=== PATIENT | female | born 1955 ===

== ENCOUNTER 2020-05-15 08:50 | Outpatient (REF) | payer MEDICAID, SELFPAY ==
[2020-05-15 10:17] LABS: MANUAL DIFF FLAG NO
[2020-05-15 10:34] LABS: Basophils Percent Auto 0.4 % (0-2); Eosinophils Absolute Auto 0.1 X10*3/uL (0.0-0.4); Eosinophils Percent Auto 1.6 % (0-4); Hematocrit 42.5 % (37-47); Hemoglobin 13.3 g/dl (12.0-16.0); Imm Gran Abs Auto 0.01 X10*3/uL (0.00-0.03); Imm Gran Pct Auto 0.1 % (0.0-0.4); Lymphocytes Percent Auto 39.8 % (20-40); Mean Corpuscular HGB Conc 31.3 g/dl (31.0-35.0); Mean Corpuscular Hemoglobin 25.7 pg (27.0-33.0); Mean Corpuscular Volume 82.2 fL (80-98); Mean Platelet Volume 10.2 fL (9.4-12.3); Monocytes Absolute Auto 0.4 X10*3/uL (0.1-1.2); Monocytes Percent Auto 5.2 % (2-11); Neutrophils Absolute Auto 3.9 X10*3/uL (2.0-8.3); Neutrophils Percent Auto 52.9 % (45-73); Platelet Count 263 X10*3/uL (160-400); Red Blood Count 5.17 X10*6/uL (4.20-5.50); Red Cell Distribution Width 14.3 % (11.0-16.0); White Blood Count 7.4 X10*3/uL (4.8-10.8)
[2020-05-15 10:47] LABS: Estimated Average Glucose 166 mg/dL; Hemoglobin A1c % 7.4 %
[2020-05-15 10:49] LABS: Alanine Aminotransferase 31 U/L (0-31); Albumin Level 4.1 g/dL (3.5-5.0); Alkaline Phosphatase 55 U/L (39-117); Anion Gap 9 (12-20); Aspartate Amino Transferase 22 U/L (5-31); Bilirubin Total 0.3 mg/dL (0.0-1.0); Blood Urea Nitrogen 14 mg/dL (9-16); Calcium 9.2 mg/dL (8.4-10.2); Carbon Dioxide 31 mmol/L (22-29); Chloride 103 mmol/L (96-108); Cholesterol 142 mg/dL; Estimated Glomerular Filt Rate > 60; Glucose Random 125 mg/dL (60-115); HDL Cholesterol 61 mg/dL; LDL Cholesterol Calculated 66 mg/dl; Potassium 4.4 mmol/l (3.3-5.1); Sodium 139 mmol/L (135-145); Total Protein 6.9 g/dL (6.5-8.0); Triglycerides 76 mg/dL
[2020-05-15 11:02] LABS: Creatinine Urine 102.91 mg/dL; Microalbum/Creatinine Ratio Ur 10.6 ug/mg cr
[2020-05-15 11:08] LABS: TSH reflex Free T4 1.35 mIU/mL (0.32-4.0)
== END 2020-05-15 08:51 | disposition home or self-care (01) ==
LOC: HO.LAB 08:50
PROVIDERS: PCP Family Medicine; Visit Provider Family Medicine
DX: E03.9 Hypothyroidism, unspecified (principal); E11.9 Type 2 diabetes mellitus without complications; I10 Essential (primary) hypertension
CPT/HCPCS: 36415; 80053; 80061; 82043; 83036; 84443; 85025

== ENCOUNTER 2020-05-27 13:35 | Outpatient (REF) | payer MEDICAID, SELFPAY | END 2020-05-27 13:36 | disposition home or self-care (01) | LOC: HO.LAB 13:35 | PROVIDERS: Visit Provider Internal Medicine | DX: Z20.828 Contact with and (suspected) exposure to other viral communicable diseases (principal) | CPT/HCPCS: 87635 ==

== ENCOUNTER 2021-04-15 12:43 | Outpatient (REF) | payer MEDICAID, SELFPAY | END 2021-04-15 12:44 | disposition home or self-care (01) | LOC: HO.LAB 12:43 | PROVIDERS: PCP Family Medicine; Visit Provider Internal Medicine | DX: Z20.822 Contact with and (suspected) exposure to COVID-19 (principal) | CPT/HCPCS: C9803; U0003; U0005 ==

== ENCOUNTER 2021-05-28 14:19 | Outpatient (REF) | payer MEDICAID, SELFPAY ==
--- NOTE | ~2021-05-28 | US_ITS ---
EXAMINATION: US EXTRACRANIAL CAROTID DUPLEX, BILATERAL CLINICAL INFORMATION: Dizziness, giddiness COMPARISON: None TECHNIQUE: Real-time ultrasound and Doppler techniques (integrating B-mode 2-D vascular images, Doppler spectral analysis and color-flow Doppler imaging) were utilized to interrogate the extracranial carotid arteries, the vertebral arteries and proximal subclavian arteries bilaterally. The degree of stenosis is determined by criteria similar to NASCET. FINDINGS: Right Side: 1. There is calcified atherosclerotic plaque seen in the bifurcation/proximal ICA region. 2. The common carotid artery PSV proximally is 70 cm/s and distally 78 cm/s. 3. The proximal internal carotid artery velocities are 59 cm/s systolic and 14 cm/s diastolic. 4. The proximal external carotid artery PSV is 74 cm/s. 5. The vertebral artery shows antegrade flow. 6. The subclavian artery waveforms are normal. Left Side: 1. There is no significant atherosclerotic plaque seen in the bifurcation/proximal ICA region. 2. The common carotid artery PSV proximally is 91 cm/s and distally 97 cm/s. 3. The proximal internal carotid artery velocities are 61 cm/s systolic and 17 cm/s diastolic. 4. The proximal external carotid artery PSV is 71 cm/s. 5. The vertebral artery shows antegrade flow. 6. The subclavian artery waveforms are normal. US/US carotid duplex BI IMPRESSION: 1. RIGHT: Minimal, non-hemodynamically significant stenosis of the proximal right internal carotid artery corresponding to a 0-49% stenosis by velocity criteria. 2. LEFT: Normal left internal carotid artery without atherosclerotic plaque or hemodynamically significant stenosis.
== END 2021-05-28 14:20 | disposition home or self-care (01) ==
LOC: HO.US 14:19
PROVIDERS: PCP Family Medicine; Visit Provider Family Medicine
DX: R42 Dizziness and giddiness (principal)
CPT/HCPCS: 93880

== ENCOUNTER 2021-06-16 12:31 | Outpatient (REF) | payer MEDICAID, SELFPAY ==
--- NOTE | ~2021-06-16 | MM_ITS ---
EXAMINATION: MM SCREENING DIGITAL BREAST TOMOSYNTHESIS, BILATERAL CLINICAL INFORMATION: Screening. Asymptomatic. The lifetime risk of breast cancer based on the Tyrer-Cuzick Model is 4%. COMPARISON: Mammography: 01/25/2019, 01/10/2018, 11/15/2016 TECHNIQUE: Digital breast tomosynthesis is performed in both the craniocaudal and mediolateral oblique views along with computer-aided detection (CAD). Synthesized 2D images are generated from the tomosynthesis. FINDINGS: There are scattered areas of fibroglandular density (ACR BI-RADS breast composition Category b). There are no significant masses, abnormal calcifications, or other abnormalities. Parenchymal pattern is similar to prior studies. No developing density. MM/MM tomosynthesis screening BI IMPRESSION: No mammographic evidence of malignancy. ASSESSMENT: BI-RADS 2: Benign RECOMMENDATION: Routine annual mammography screening. This patient's information was entered into a reminder system with a target due date for their next mammogram.
== END 2021-06-16 12:32 | disposition home or self-care (01) ==
LOC: HO.MAMMO 12:31
PROVIDERS: Visit Provider Family Medicine
DX: Z12.31 Encounter for screening mammogram for malignant neoplasm of breast (principal)
CPT/HCPCS: 77063; 77067

== ENCOUNTER 2022-02-24 09:10 | Outpatient (REF) | payer MEDICARE, MEDICAID, SELFPAY ==
--- NOTE | ~2022-02-24 | XR_ITS ---
EXAMINATION: XR FOOT, RIGHT CLINICAL INFORMATION: Pain COMPARISON: None TECHNIQUE: AP, lateral, and oblique views of the right foot. FINDINGS: No acute or healing fracture, dislocation, destructive process. No visible ankle capsular effusion. Subtalar joint unremarkable. Retrocalcaneal recess preserved. There is bulky and small plantar calcaneal spurs. There is a first MTP medial bunion and mild hallux valgus of approximately 18 degrees. Mild degenerative changes and mild spurring first MTP. No erosive change. The second through fifth MTP joints are unremarkable. There are variable mild degenerative changes PIP and DIP joints. No erosive change. XR/XR foot RT min 3V IMPRESSION: -No acute or healing fracture, dislocation, or destructive process. -Bulky posterior and smaller plantar calcaneal spurs. -First MTP bunion, mild hallux valgus, and mild degenerative changes. -Mild degenerative changes interphalangeal joints. No erosive change.
== END 2022-02-24 09:11 | disposition home or self-care (01) ==
LOC: HO.XRAY 09:10
PROVIDERS: PCP Family Medicine; Visit Provider Nurse Practitioner Primary Care
DX: M79.671 Pain in right foot (principal)
CPT/HCPCS: 73630

== ENCOUNTER 2022-07-09 08:57 | Outpatient (REF) | payer MEDICARE, MEDICAID, SELFPAY ==
--- NOTE | ~2022-07-09 | MM_ITS ---
EXAMINATION: MM SCREENING DIGITAL BREAST TOMOSYNTHESIS, BILATERAL CLINICAL INFORMATION: Screening. Asymptomatic. The lifetime risk of breast cancer based on the Tyrer-Cuzick Model is 10%. COMPARISON: Mammography: 06/16/2021, 01/25/2019, 01/10/2018, 11/15/2016, 07/09/2015 TECHNIQUE: Digital breast tomosynthesis is performed in both the craniocaudal and mediolateral oblique views along with computer-aided detection (CAD). Synthesized 2D images are generated from the tomosynthesis. FINDINGS: There are scattered areas of fibroglandular density (ACR BI-RADS breast composition Category b). There is fine fibronodular parenchymal pattern similar to prior studies. Dominant nodularity mid 12:30 left breast is similar to prior studies. There is no developing density or interval architectural abnormality. No abnormal calcifications. The axilla and skin contours are unremarkable. MM/MM tomosynthesis screening BI IMPRESSION: No mammographic evidence of malignancy. ASSESSMENT: BI-RADS 2: Benign RECOMMENDATION: Routine annual mammography screening. This patient's information was entered into a reminder system with a target due date for their next mammogram.
== END 2022-07-09 08:58 | disposition home or self-care (01) ==
LOC: HO.MAMMO 08:57
PROVIDERS: PCP Family Medicine; Visit Provider Family Medicine
DX: Z12.31 Encounter for screening mammogram for malignant neoplasm of breast (principal)
CPT/HCPCS: 77063; 77067

== ENCOUNTER 2023-02-23 10:14 | Outpatient (REF) | payer MEDICARE, MEDICAID, SELFPAY ==
--- NOTE | ~2023-02-23 | XR_ITS ---
EXAMINATION: XR WRIST, LEFT CLINICAL INFORMATION: Wrist pain COMPARISON: None available. TECHNIQUE: PA, lateral, and oblique views of the left wrist. FINDINGS: Widening of the scapholunate interval which be seen in the setting of scapholunate dissociation. No acute fracture or dislocation. Mild degenerative changes of the first carpometacarpal joint with subchondral sclerosis. Soft tissues are unremarkable. XR/XR wrist LT min 3V IMPRESSION: 1. Widening of the scapholunate interval which be seen in the setting of scapholunate dissociation. 2. Mild degenerative changes of the first carpometacarpal joint with subchondral sclerosis. 3. No acute fracture or dislocation.
--- NOTE | ~2023-02-23 | XR_ITS ---
EXAMINATION: XR HIP, RIGHT CLINICAL INFORMATION: Pain COMPARISON: None available. TECHNIQUE: Two views of the right hip. FINDINGS: No acute fracture or dislocation. Joint spaces are maintained. Atherosclerotic vascular calcification. Calcified phleboliths in the pelvis. XR/XR hip RT min 2V IMPRESSION: No acute osseous abnormality.
== END 2023-02-23 10:15 | disposition home or self-care (01) ==
LOC: HO.HHCX 10:14
PROVIDERS: Visit Provider Family Medicine
DX: M25.532 Pain in left wrist (principal); M70.61 Trochanteric bursitis, right hip
CPT/HCPCS: 73110; 73502

== ENCOUNTER 2023-04-22 07:19 | Outpatient (REF) | payer MEDICARE, MEDICAID, SELFPAY ==
--- NOTE | ~2023-04-22 | XR_ITS ---
EXAMINATION: XR PELVIS CLINICAL INFORMATION: Pain COMPARISON: Hip radiographs 02/23/2023 TECHNIQUE: AP view of the pelvis. FINDINGS: No acute fracture or dislocation. Suture chain material in the right hemipelvis. Atherosclerotic vascular calcification. Calcified phleboliths in the pelvis. Hip and sacroiliac joint spaces are maintained. Moderate degenerative changes of the pubic symphysis with loss of joint space. Soft tissues are otherwise unremarkable. XR/XR pelvis 1-2V IMPRESSION: 1. Moderate degenerative changes of the pubic symphysis with loss of joint space. 2. Hip and sacroiliac joint spaces are maintained.
== END 2023-04-22 07:20 | disposition home or self-care (01) ==
LOC: HO.HOSX 07:19
PROVIDERS: Visit Provider Physician Assistant
DX: M25.551 Pain in right hip (principal); M70.61 Trochanteric bursitis, right hip; E11.9 Type 2 diabetes mellitus without complications
CPT/HCPCS: 20610; 72170; J1020

== ENCOUNTER 2023-04-22 09:47 | Outpatient (AMB) | payer MEDICARE, MEDICAID, SELFPAY ==
--- NOTE | 2023-04-22 09:59 | A.OFFVIS_ITS ---
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 States pain is in her lateral aspect of her hip. States pain started about 3 months ago and has worsen especially at night time. Reports she has weakness, pain is increase with prolong laying. No groin pain or lower pain back issues. Denies any radiating pain.Seen with her PCP who ordered xrays and referred to orthopedic. 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 The patient was referred by her PCP on 03/04/2023 status post being diagnosed with left hip trochanteric bursitis. She was prescribed diclofenac topical and APAP 1g Q8H PRN. She reports in the office today that her pain is on the lateral aspect of the right hip that increases at night. She claims her pain presented 3 months ago, in 12/2022. She reports having weakness and increased pain with prolonged laying down. She denies groin pain or lower back complications. She denies any radiating pain. Patient has a significant history of diabetes mellitus. Her last A1c was 7.3 on 08/18/2022. She is accompanied in the office today by her daughter, Laure, who is translating for her. 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 No ecchymosis, erythema, or edema. Full hip ROM in all planes. Tenderness to palpation over the greater trochanteric bursa. 5/5 strength with resisted hip flexion, knee extension, abduction, and abduction. Able to perform straight leg raise. NVI. Office Procedures Joint Injection/Drain Joint Injection/Drain Primary Site: other (right hip greater troch bursa) Prep: site was prepped using aseptic technique, ethochloride spray was applied and injection warnings given Injected: 40 mg of, DepoMedrol, with 8 mL of (2% plain lido ) and other (greater troch bursa) Procedure: The patient tolerated the procedure well, but had some pain with the injection and there was some relief with the local anesthesia Coding 89132 - Glenohumeral/Tronchanteric Bursa/Intraarticular Procedure code (CPT) selection complete Results Reviewed Results Reviewed: 04/22/23 10:15 Lidocaine HCl 2 % MPF [Xylocaine 2 % MPF] 5 ml .ROUTE .STK-MED ONE methylPREDNISolone acetate [DEPO-MedroL] 40 mg .ROUTE .STK-MED ONE Assessment & Plan Assessment & Plan (1) Trochanteric bursitis of right hip: Code(s): M70.61 - Trochanteric bursitis, right hip (2) Diabetes: Code(s): E11.9 - Type 2 diabetes mellitus without complications Plan Ms. Garza is a 67-year-old female who presents in the office today, as a new patient, for an evaluation of right hip pain. The patient was referred by her P CP on 03/04/2023 status post being diagnosed with left hip trochanteric bursitis. She was prescribed diclofenac topical and APAP 1g Q8H PRN. She reports in the office today that her pain is on the lateral aspect of the right hip that increases at night. She claims her pain presented 3 months ago, in 12/2022. She reports having weakness and increased pain with prolonged laying down. She denies groin pain or lower back complications. She denies any radiating pain. Patient has a significant history of diabetes mellitus. Her last A1c was 7.3 on 08/18/2022. She is accompanied in the office today by her daughter, Laure, who is translating for her. The patient was offered a cortisone injection in the right hip with 80 mg of DepoMedrol. The patient was explained the risk, benefits, and alternatives to receiving this injection. After receiving consent for the injection, the patient had the procedure done while in office today. The patient tolerated the procedure well with no complications. Due to the patient?s history of diabetes, they were instructed to monitor her blood glucose level. The patient was informed that they could see a rise in their numbers and if the numbers became too high, they were instructed to call their PCP. The patient was also informed that they could have facial flushing as a side effect of the injection but this will pass. Follow up will be PRN, or sooner if needed. X-rays of the right hip obtained while in the office today and reviewed by me, Ayesha Back PA-C, revealed no evidence of acute fracture or dislocation. Orders: Orders XR pelvis 1-2V Today M25.559 - Pain in unspecified hip Patient Instructions: Scribed for Ayesha Back PA-C by Talia Lui medical administrative assistant, on 04/22/2023 at 9:49 am, EST. Coding Level of Care Code New Pt Level 4 (06568) Diagnoses Trochanteric bursitis of right hip M70.61 Diabetes E11.9 CPT Codes Coding - Joint 7: 37769 - Glenohumeral/Tronchanteric Bursa/Intraarticular ([id number])
[2023-04-22 10:05] VITALS: BMI 28.7
== END 2023-04-22 10:24 | disposition home or self-care (01) ==
PROVIDERS: PCP Family Medicine; Visit Provider Physician Assistant
DX: M70.61 Trochanteric bursitis, right hip (principal)
CPT/HCPCS: 20610; 99204

== ENCOUNTER 2023-07-26 15:23 | Outpatient (REF) | payer MEDICARE, MEDICAID, SELFPAY | END 2023-07-26 15:24 | disposition home or self-care (01) | LOC: HO.MAMMO 15:23 | PROVIDERS: PCP Family Medicine; Visit Provider Family Medicine | DX: Z12.31 Encounter for screening mammogram for malignant neoplasm of breast (principal) | CPT/HCPCS: 77063; 77067 ==

== ENCOUNTER → 2023-07-26 15:45 | Outpatient (BNV) | payer MEDICARE, MEDICAID, SELFPAY | PROVIDERS: PCP Family Medicine; Visit Provider Radiology Diagnostic Radiology | DX: Z12.31 Encounter for screening mammogram for malignant neoplasm of breast (principal) | CPT/HCPCS: 77063; 77067 ==

== ENCOUNTER 2023-08-04 08:19 | Outpatient (REF) | payer OTHER, SELFPAY ==
[2023-08-04 09:21] LABS: Alanine Aminotransferase 14 U/L (0-31); Alkaline Phosphatase 52 U/L (39-117); Anion Gap 14 (12-20); Aspartate Amino Transferase 18 U/L (5-31); Bilirubin Total 0.3 mg/dL (0.0-1.0); Blood Urea Nitrogen 14 mg/dL (9-16); Calcium 9.3 mg/dL (8.4-10.2); Carbon Dioxide 29 mmol/L (22-29); Chloride 105 mmol/L (96-108); Estimated Glomerular Filt Rate > 60; Glucose Random 127 mg/dL (60-115); Potassium 4.5 mmol/L (3.3-5.1); Sodium 143 mmol/L (135-145); Total Protein 6.9 g/dL (6.5-8.0)
[2023-08-04 09:39] LABS: TSH reflex Free T4 2.06 uIU/mL (0.32-4.0)
== END 2023-08-04 08:20 | disposition home or self-care (01) ==
LOC: HO.LAB 08:19
PROVIDERS: PCP Family Medicine; Visit Provider Family Medicine
DX: E11.9 Type 2 diabetes mellitus without complications (principal)
CPT/HCPCS: 36415; 80053; 80061; 82043; 82570; 82607; 82746; 84443

== ENCOUNTER 2023-08-29 15:38 | Outpatient (REF) | payer OTHER, SELFPAY ==
--- NOTE | ~2023-08-29 | XR_ITS ---
EXAMINATION: XR WRIST, LEFT CLINICAL INFORMATION: Pain. COMPARISON: Prior radiographs, most recently 02/23/2023. TECHNIQUE: PA, lateral, and oblique views of the left wrist. An additional scaphoid view of the bilateral wrists is submitted. FINDINGS: Bony alignment and mineralization are normal. No fracture. Alignment is anatomic with normal joint spaces. No erosions. There is soft tissue calcification of the right radiocarpal joint. XR/XR wrist LT w scaphoid IMPRESSION: 1. Unremarkable left wrist radiographs. 2. There is chondrocalcinosis at the right radiocarpal joint, which can be associated with CPPD.
== END 2023-08-29 15:39 | disposition home or self-care (01) ==
LOC: HO.HOSX 15:38
PROVIDERS: Visit Provider Orthopaedic Surgery
DX: Z13.89 Encounter for screening for other disorder (principal)

== ENCOUNTER 2023-08-31 08:56 | Outpatient (AMB) | payer OTHER, MEDICAID, SELFPAY ==
[2023-08-31 09:12] VITALS: BMI 28.7
--- NOTE | 2023-08-31 09:12 | MHC.OFFVIS ---
Intake Vital Signs 08/31/23 09:12 Height 5 ft 3 in Weight 162 lb BMI 28.7 Intake Visit Reasons: New prob- LT Wrist pain Intake Note: Lotus 67 yr old female presents today with her daughter Thania for a new problem for her left wrist pain. States her pain is mainly on her volar aspect of her wrist that has started about 3 yrs and has worsens since. States pain increases when she is using her hand, and applying pressure on wrist. Denies injury. States she is having numbness and tingling mostly every night. No EMG done. Patient is diabetic and has O.A in hands. Last A1C was about a 6.0. Allergies atropine [] Allergy (Unknown, Verified 08/31/23 09:12) Hives belladonna alkaloids [From ] Allergy (Unknown, Unverified 08/31/23 09:12) INVOLUNTARY SPASMS hyoscyamine [] Allergy (Unknown, Verified 08/31/23 09:12) hives phenobarbital [From ] Allergy (Unknown, Unverified 08/31/23 09:12) INVOLUNTARY SPASMS scopolamine [] Allergy (Unknown, Verified 08/31/23 09:12) hives From Allergy (Unknown, Uncoded 08/31/23 09:12) INVOLUNTARY SPASMS HPI New prob- LT Wrist pain HPI Details Lotus is a 67 year od right hand dominant Diabetic Turkmen speaking woman, here with her daughter, with complaints of left hand numbness & wrist pain. Her daughter acted as a recyclable materials sorter today. She reports numbness and tingling in her thumb, index, and middle fingers, which she says occurs intermittently but nightly. She denies any prior NCS. She is unsure if she gets numbness in her small finger. This is her chief complaint today. She complains of pain primarily in the volar aspect of her left wrist. There is more generalized pain passing over the volar aspect of the wrist in line with the carpal tunnel, but she also has point tenderness directly over the pisiform. She says her pain has been present for ~3 years now, and has been worsening over time. Her pain also worsens when bending her wrist or applying pressure, such as wearing a watch. She is a Diabetic, which she says is well-controlled, and has hand OA. 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 Review of Systems Const All systems reviewed & are unremarkable except as noted in HPI and below Physical Exam Vital Signs: BMI result Body Mass Index 28.7 Const General: cooperative, healthy appearing and no acute distress Orientation/consciousness: patient oriented x3 HEENT Head: Yes normocephalic and Yes atraumatic Eyes EOM: EOMs intact bilaterally Resp Effort & Inspection: normal respiratory effort and able to speak in complete sentences Cardio Jugular venous distension: no JVD Skin General skin exam: turgor normal Rashes: no rashes Neuro General: patient oriented x3 Extrem Other: Evaluation of Left Upper Extremity: The patient is alert, oriented, and in no acute distress Neuro: Dense numbness to the tips of all digits today in clinic. No thenar or intrinsic wasting Good APB muscle belly firing and good finger cross Vascular: Cap refill brisk ROM: She can make a fist and extend all her digits No locking or catching Skin: No lacerations or abrasions. General: No Ecchymosis. No Erythema or evidence of infection. Tender directly over the volar aspect of the pisiform Less tender over the pisotriquetral joint Radiographs: 3 views of her left wrist were taken and viewed by me today in clinic. They show no fractures or dislocations. No appreciable wrist arthritis. Psych Appearance: grossly normal Affect: normal affect Attitude: cooperative Assessment & Plan Assessment & Plan (1) Numbness of left hand: Code(s): R20.0 - Anesthesia of skin (2) Diabetes: Code(s): E11.9 - Type 2 diabetes mellitus without complications (3) Left wrist pain: Code(s): M25.532 - Pain in left wrist Plan Assessment & Plan: 1. Left hand numbness With dense numbness to the tips of all digits, including the small finger Symptoms intermittent, but nightly I educated her about carpal & cubital tunnel syndrome, as well as the risks of delaying treatment I ordered a NCS to assess for peripheral nerve compression She will follow up when completed for review 2. Left wrist pain With tenderness over the pisiform I educated her about this condition I discussed non-operative treatment options, such as injections, if her symptoms persist No intervention at this time, we will discuss this when she follows up for her NCS review Scribed for Cammy Perez MD by Baldev Craft, dental assistant medical assistant, on 08/31/23 at 9:45 AM, EST. Orders: Orders XR wrist LT w scaphoid Today M25.532 - Pain in left wrist Coding Level of Care Code New Pt Level 3 (98123) Diagnoses Numbness of left hand R20.0 Diabetes E11.9 Left wrist pain M25.532
== END 2023-08-31 09:57 | disposition home or self-care (01) ==
PROVIDERS: PCP Family Medicine; Visit Provider Orthopaedic Surgery
DX: R20.0 Anesthesia of skin (principal); M25.532 Pain in left wrist; E11.9 Type 2 diabetes mellitus without complications
CPT/HCPCS: 99213

== ENCOUNTER → 2023-08-31 08:56 | Outpatient (BNVA) | payer OTHER, MEDICAID, SELFPAY | PROVIDERS: PCP Family Medicine; Visit Provider Orthopaedic Surgery | DX: M25.532 Pain in left wrist (principal); R20.0 Anesthesia of skin; E11.9 Type 2 diabetes mellitus without complications | CPT/HCPCS: 73110; 99212 ==

== ENCOUNTER 2024-02-28 09:06 | Outpatient (REF) | payer OTHER, MEDICAID, SELFPAY ==
--- NOTE | ~2024-02-28 | XR_ITS ---
EXAMINATION: XR KNEE, LEFT CLINICAL INFORMATION: Left knee pain COMPARISON: None available. TECHNIQUE: Four views of the left knee. FINDINGS: Examination of the left knee shows advanced medial osteoarthrosis with joint space narrowing, subchondral sclerosis and osteophyte formation. Patellofemoral osteophytes are also present. There is a small suprapatellar effusion. No fracture, subluxation or suspicious bone lesion is evident. XR/XR knee LT 3V IMPRESSION: 1. Advanced medial and mild patellofemoral osteoarthrosis of the left knee. 2. Small suprapatellar effusion.
== END 2024-02-28 09:07 | disposition home or self-care (01) ==
LOC: HO.HHCX 09:06
PROVIDERS: Visit Provider Emergency Medicine
DX: M25.562 Pain in left knee (principal)
CPT/HCPCS: 73562

== ENCOUNTER 2024-03-27 14:31 | Outpatient (AMB) | payer OTHER, MEDICAID, SELFPAY ==
--- NOTE | 2024-03-27 14:39 | MHC.OFFVIS ---
Intake Visit Reasons: NEW PROB - LT knee pain Intake Note: Lotus is a 68 year old female who presents today for a new problem visit with complaints of left knee pain. Patient expresses intermittent extreme pain for 2 months. She has difficulty with ambulation and feels instability in her left knee. She states that she did have a cortisone injection given into her left knee several years ago by another provider. She got fairly good relief from that injection. She has tried Tylenol and anti-inflammatory medicines which gave her minimal relief. She would like to hold off on surgery for as long as possible. Accompanied by: Daughter Allergies atropine [] Allergy (Unknown, Verified 03/27/24 14:43) Hives belladonna alkaloids [From ] Allergy (Unknown, Unverified 03/27/24 14:43) INVOLUNTARY SPASMS hyoscyamine [] Allergy (Unknown, Verified 03/27/24 14:43) hives phenobarbital [From ] Allergy (Unknown, Unverified 03/27/24 14:43) INVOLUNTARY SPASMS scopolamine [] Allergy (Unknown, Verified 03/27/24 14:43) hives From Allergy (Unknown, Uncoded 03/27/24 14:43) INVOLUNTARY SPASMS Medication List - Last Reconciled 03/28/24 by Abdirahman Awad MD amitriptyline 25 mg PO BEDTIME atorvastatin 80 mg PO DAILY dulaglutide (Trulicity) mg subcut levothyroxine 100 mcg PO DAILY lisinopril 2.5 mg PO DAILY meclizine 25 mg PO TID PRN metformin ER 1,000 mg PO BID omeprazole 40 mg PO DAILY sertraline 100 mg PO BID sumatriptan succinate 50 mg PO 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 Physical Exam Const Other: Well-nourished well-developed very friendly female awake alert and oriented x3 in no acute distress Extrem Other: Bilateral lower extremity examination shows good capillary refill, no skin lesions noted, normal sensation light touch Left knee examination shows a minimal effusion, palpable crepitus with range of motion, pain with range of motion, no instability Office Procedures Joint Injection/Aspiration Joint Injection/Aspiration Primary Site: left knee Prep: site was prepped using aseptic technique Injected: 40 mg of, DepoMedrol and 1% plain lidocaine Procedure: The patient tolerated the procedure well Coding 34379 - Large joint Procedure code (CPT) selection complete Results Reviewed Results Reviewed: X-rays of the patient's left knee show moderate joint space narrowing most significant in the medial compartment, subchondral sclerosis, no acute bony abnormalities Assessment & Plan Assessment & Plan (1) Left knee pain: Code(s): M25.562 - Pain in left knee Category: Medical Plan Ms. Garza presents with left knee pain due to degenerative joint disease. I had a lengthy discussion with the patient regarding the treatment options. The risks and benefits of a left knee cortisone injection were discussed at length with the patient. The patient wished to proceed with the injection. She tolerated the injection well. She will continue with her home exercise program. She will follow up with me on an as-needed basis should her symptoms not plateau at an unacceptable level over the next few months. Feel free to call me at any time should questions regarding her orthopedic management arise. Thank you very much for asking me to see this very friendly patient. I spent 20 minutes in reviewing the patient's records and imaging studies, seeing the patient and documenting in the medical record. Orders: Orders AMB Joint Injection/Aspiration 03/27/24 M25.562 - Pain in left knee Coding Level of Care Code New Pt Level 3 (88473) Diagnoses Left knee pain M25.562 CPT Codes Coding - 42476 Large joint: 68097 - Large joint ([id number])
== END 2024-03-27 15:09 | disposition home or self-care (01) ==
PROVIDERS: PCP Family Medicine; Visit Provider Orthopaedic Surgery
DX: M25.562 Pain in left knee (principal)
CPT/HCPCS: 20610; 99203

== ENCOUNTER → 2024-03-27 14:31 | Outpatient (BNVA) | payer OTHER, MEDICAID, SELFPAY | PROVIDERS: PCP Family Medicine; Visit Provider Orthopaedic Surgery | DX: M17.12 Unilateral primary osteoarthritis, left knee (principal) | CPT/HCPCS: 20610; 99202; J1010 ==

== ENCOUNTER 2024-06-27 10:56 | Outpatient (AMB) | payer OTHER, SELFPAY ==
[2024-06-27 11:32] VITALS: BMI 28.7
--- NOTE | 2024-06-27 11:32 | A.OFFVIS_ITS ---
Vital Signs 06/27/24 11:32 Height 5 ft 3 in Weight 162 lb BMI 28.7 Intake Visit Reasons: OV- LT knee pain Intake Note: Lotus is a 68 year old female who presents with complaints of left knee pain. She describes her pain as sharp in nature. She has had cortisone injections in the past which gave her fairly good relief. She has also tried Tylenol and anti-inflammatory medicines which gave her minimal relief. She wishes to hold off on surgery if at all possible. Allergies atropine [] Allergy (Unknown, Verified 03/27/24 14:43) Hives belladonna alkaloids [From ] Allergy (Unknown, Unverified 03/27/24 14:43) INVOLUNTARY SPASMS hyoscyamine [] Allergy (Unknown, Verified 03/27/24 14:43) hives phenobarbital [From ] Allergy (Unknown, Unverified 03/27/24 14:43) INVOLUNTARY SPASMS scopolamine [] Allergy (Unknown, Verified 03/27/24 14:43) hives From Allergy (Unknown, Uncoded 03/27/24 14:43) INVOLUNTARY SPASMS Medication List - Last Reconciled 06/27/24 by Abdirahman Awad MD amitriptyline 25 mg PO BEDTIME atorvastatin 80 mg PO DAILY dulaglutide (Trulicity) mg subcut levothyroxine 100 mcg PO DAILY lisinopril 2.5 mg PO DAILY meclizine 25 mg PO TID PRN metformin ER 1,000 mg PO BID omeprazole 40 mg PO DAILY sertraline 100 mg PO BID sumatriptan succinate 50 mg PO [facility] Social History Current occupational status: disabled 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 Physical Exam Vital Signs: BMI result Body Mass Index 28.7 Const Other: Well-nourished well-developed very friendly female awake alert and oriented x3 in no acute distress Extrem Other: Bilateral lower extremity examination shows good capillary refill, no skin lesions noted, normal sensation light touch Left knee examination shows a minimal effusion, palpable crepitus with range of motion, pain with range of motion, no instability Office Procedures AMB Joint Injection/Aspiration Joint Injection/Aspiration Primary Site: left knee Prep: site was prepped using aseptic technique Injected: 40 mg of, DepoMedrol and 1% plain lidocaine Procedure: The patient tolerated the procedure well Coding - Large joint Procedure code (CPT) selection complete Results Reviewed Results Reviewed: X-rays of the patient's left knee taken previously show joint space narrowing, subchondral sclerosis, no acute bony abnormalities Assessment & Plan Assessment & Plan (1) Osteoarthritis of left knee: Code(s): M17.12 - Unilateral primary osteoarthritis, left knee Category: Medical Plan Ms. Garza presents with left knee pain due to osteoarthritis. I had a lengthy discussion with the patient regarding the treatment options. The risks and benefits of a left knee cortisone injection were discussed at length with the patient. The patient wished to proceed. She tolerated the injection well. She will continue with her home exercise program. She will contact me prior to her follow-up appointment in 3 months should any questions or concerns arise. Feel free to call me at any time should questions regarding her orthopedic management arise. I spent 22 minutes in reviewing the patient's records and imaging studies, seeing the patient and documenting in the medical record. Orders: Orders AMB Joint Injection/Aspiration Today M17.12 - Unilateral primary osteoarthritis, left knee Coding Level of Care Code Est Pt Level 3 (78319) Complex EM visit Add On G2211 Diagnoses Osteoarthritis of left knee M17.12 CPT Codes Coding - 34806 Large joint: 64022 - Large joint ([id number])
== END 2024-06-27 11:59 | disposition home or self-care (01) ==
PROVIDERS: PCP Family Medicine; Visit Provider Orthopaedic Surgery
DX: M17.12 Unilateral primary osteoarthritis, left knee (principal)
CPT/HCPCS: 20610; 99213

== ENCOUNTER → 2024-06-27 10:56 | Outpatient (BNVA) | payer OTHER, SELFPAY | PROVIDERS: PCP Family Medicine; Visit Provider Orthopaedic Surgery | DX: M17.12 Unilateral primary osteoarthritis, left knee (principal) | CPT/HCPCS: 20610; 99212; J1010; J2003 ==

== ENCOUNTER 2024-11-02 09:00 | Outpatient (REF) | payer OTHER, SELFPAY ==
--- OUTSIDE RECORDS SUMMARY | 2024-11-02 09:39 | XMS_ITS | Encounter Summary ---
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 Name Role Phone Lolis Gastelum MD Primary Care Provider [phone] Encounter Details Date Type Department Care Team (Late Contact Info) Description 08/18/2022 Abstract [facility] [address], [place] [phone] Lolis Gastelum MD [address], [place] [phone] Social History Tobacco Use Types Packs/Day Years Used Date Smoking Tobacco: Never Passive Smoke Exposure: Never Smokeless Tobacco: Never Depression Answer Date Recorded Patient Health Questionnaire-9 Score 0 08/18/2022 Depression Answer Date Recorded Patient Health Questionnaire-2 Score 0 08/18/2022 Comments Unknown Sex and Gender Information Value Date Recorded Sex Assigned at Female 05/31/2022 10:14 AM EDT Legal Sex Female 10:14 AM EDT Gender Identity Female 05/31/2022 10:14 AM EDT Sexual Orientation Choose not to disclose 2021 10:14 AM EDT COVID-19 Exposure Response Date Recorded In the last 10 days, have yo u been in contact with someone who was confirmed or suspected to have Coronavirus/COVID-19? No / Unsure 08/18/2022 10:47 AM EST documented as of this encounter Plan of Treatment Upcoming Encounters Date Type Department Care Team (Late st Contact Info) Description 11/06/2024 10:00 AM EDT Office Visit [facility] [address], [place] [phone] documented as of this encounter Visit Diagnoses Not on filedocumented in this encounter Additional Health Concerns Assessment Noted Time PHQ-9 Depression Total Score: 0 08/18/19 23 11:05 AM EST documented as of this encounter Care Teams Metal Temperer Relationship Specialty Start Date End Date Lolis Gastelum MD [address] [place] [address] PCP - General Family Medicine 08/01/18 documented as of this encounter
--- OUTSIDE RECORDS SUMMARY | 2024-11-02 09:39 | XMS_ITS | Clinical Summary ---
Author Organization [email or web address] Address [address] [place] [address] [address] [place] [address] Care Team Providers Care Bar And Filler Assembler Name Role Phone Lolis Gastelum MD Primary Care Provider [phone] Allergies Active Allergy Reactions Criticality Noted Date Comments Atropine Hives Hyoscyamine Unknown Phenobarbital Unknown Scopolamine Unknown Medications acetaminophen (Tylenol Extra Strength) 500 MG tabletIndications: Trochanteric bursitis of right hip,Left wrist pain Take 2 tablets (1,000 mg) by mouth every 8 (eight) hours if needed for mild pain, moderate pain, headaches or fever. 90 tablet 1 3 Active atorvastatin (Lipitor) 80 MG tabletIndications: Dyslipidemia take 1 tablet (80MG) by oral route every day 90 tablet 3 3 Active meclizine (Antivert) 25 MG tabletIndications: Benign paroxysmal positional vertigo, unspecified laterality take 1 tablet by oral route 3 times every day as needed for dizziness 30 tablet 2 3 Active metFORMIN XR (Glucophage-XR) 500 MG 24 hr tabletIndications: Type 2 diabetes mellitus without complication, without long-term current use of insulin (CMS/HCC) take 2 tablet by oral route 2 times every day with meal 360 tablet 3 3 Active omeprazole (PriLOSEC) [address] capsule take 1 capsule (40MG) by oral route every day before a meal 90 capsule 3 3 Active sertraline (Zoloft) 100 MG tabletIndications: Depressive disorder take 2 tablet (200MG) by oral route every day 180 tablet 3 3 Active SUMAtriptan (Imitrex) 50 MG tabletIndications: Migraine without status migrainosus, not intractable, unspecified migraine type take 1 tablet by oral route once after onset of migraine; may repeat after 2 hours if you still have headache or headache returns 9 tablet 3 3 Active levothyroxine (Synthroid, Levoxyl) 100 MCG tabletIndications: Acquired hypothyroidism Take 1 tablet (100 mcg) by mouth before breakfast. 90 tablet 3 3 Active amitriptyline (Elavil) 25 MG tabletIndications: Acquired hypothyroidism,Aleks constantin without status migrainosus, not intractable, unspecified migraine type Take 1 tablet (25 mg) by mouth at bedtime. 90 tablet 3 3 Active empagliflozin (Jardiance) 10 MGIndications:Retail Stocker marilou nonintractable headache, unspecified headache type Take 1 tablet (10 mg) by mouth in the morning. 90 tablet 3 3 Active lisinopril 5 MG tabletIndications: Primary hypertension Take 1 tablet (5 mg) by mouth in the morning. 90 tablet 3 3 Active glucose blood (FREESTYLE LITE) test stripIndications:C hronic nonintractable headache, unspecified headache type 1 each by Other route 3 times daily. 100 each 3 Active FreeStyle lancetsIndications :Chronic nonintractable headache, unspecified headache type 1 each by Other route 3 times daily. Check blood glucose 100 each 3 Active Alcohol Swabs (Alcohol Prep) padsIndications:Ch ronic nonintractable headache, unspecified headache type Check BG three times daily 100 each 3 Active dulaglutide (Trulicity) 1.5 MG/0.5ML solution pen-injector Inject 1.5 mg under the skin 1 (one) time per week. 4 each 4 Active Diclofenac Sodium 1 % gelIndications:Tro chanteric bursitis of right hip,Left wrist pain Apply to affected area once daily as needed for pain 200 g 2 4 Active topiramate (Topamax) 25 MG tablet Take 25 mg by mouth Once per day. Active Active Problems Problem Noted Date Diagnosed Date Left wrist pain 07/16/2023 Assessment & Plan (07/16/2023 5:19 AM EST): X-ray of L wrist on 02/23/23 1. Widening of the scapholunate interval which be seen in the setting of scapholunate dissociation. 2. Mild degenerative changes of the first carpometacarpal joint with subchondral sclerosis. 3. No acute fracture or dislocation. Pt states she was not evaluated for left wrist pain by orthopedist Will refer again Overweight 02/26/2023 Assessment & Plan (02/26/2023 5:10 PM EDT): - s/p bariatric surgery Trochanteric bursitis of right hip 08/22/2022 Assessment & Plan (04/10/2024 2:00 PM EDT): - apply diclofenac topical and take APAP 1g q8h prn - thigh muscle exercise - evaluated by [facility], received steroid injection Assessment & Plan (07/16/2023 5:18 AM EST): - apply diclofenac topical and take APAP 1g q8h prn - thigh muscle exercise - evaluated by [facility], received steroid injection Assessment & Plan (02/26/2023 5:16 PM EDT): - apply diclofenac topical and take APAP 1g q8h prn - thigh muscle exercise - discussed about an option of steroid injection, which she declined initially, but now is willing to try Assessment & Plan (08/22/2022 12:40 PM EST): - apply diclofenac topical - thigh muscle exercise - discussed about an option of steroid injection, which she declined Plantar fasciitis 08/22/2022 Assessment & Plan (08/22/2022 12:41 PM EST): - right foot - improved with conservative management Chronic headache disorder 02/24/2017 Assessment & Plan (04/10/2024 1:58 PM EDT): With dizziness -Normal MRI in Apr 2016 -Possibly associated with migraine -Continue current treatment for migraine -carotid US on 05/28/21 showed right side minimal stenosis and left side was normal -continue amitriptyline 25 mg at bedtime -patient is interested in referral to a neurologist, will make a referral Assessment & Plan (12/13/2023 1:21 PM EDT): With dizziness -Normal MRI in Apr 2016 -Possibly associated with migraine -Continue current treatment for migraine -carotid US on 05/28/21 showed right side minimal stenosis and left side was normal -continue amitriptyline 25 mg qhs Assessment & Plan (07/16/2023 5:15 AM EST): With dizziness -Normal MRI in Apr 2016 -Possibly associated with migraine -Continue current treatment for migraine -carotid US on 05/28/21 showed right side minimal stenosis and left side was normal -continue amitriptyline 25 mg qhs Assessment & Plan (02/26/2023 5:10 PM EDT): With dizziness -Normal MRI in Apr 2016 -Possibly associated with migraine -Continue current treatment for migraine -carotid US on 05/28/21 showed right side minimal stenosis and left side was normal -continue amitriptyline 25 mg qhs Assessment & Plan (08/22/2022 12:56 PM EST): With dizziness -Normal MRI in Apr 2016 -Possibly associated with migraine -Continue current treatment for migraine -carotid US on 05/28/21 showed right side minimal stenosis and left side was normal -continue amitriptyline 25 mg qhs Migraine 02/24/2017 Assessment & Plan (04/15/2024 6:26 PM EDT): -with dizziness -Imaging study: MRI normal in Apr 2016 -continue amitriptyline to 25 mg qhs -continue sumatriptan and Excedrin migraine prn -improve sleep hygiene -avoid triggers Assessment & Plan (07/16/2023 5:22 AM EST): -with dizziness -Imaging study: MRI normal in Apr 2016 -continue amitriptyline to 25 mg qhs -continue sumatriptan and Excedrin migraine prn -improve sleep hygiene -avoid triggers Assessment & Plan (02/26/2023 5:14 PM EDT): -with dizziness -Imaging study: MRI normal in Apr 2016 -continue amitriptyline to 25 mg qhs -continue sumatriptan and Excedrin migraine prn -improve sleep hygiene -avoid triggers Assessment & Plan (08/22/2022 12:57 PM EST): -with dizziness -Imaging study: MRI normal in Apr 2016 -continue amitriptyline to 25 mg qhs -continue sumatriptan and Excedrin migraine prn -improve sleep hygiene -avoid triggers Primary osteoarthritis of both knees 02/09/2016 Assessment & Plan (04/10/2024 2:00 PM EDT): - seen by orthopedist on 03/27/24, received cortisone injection to left knee - continue staying physically active - take acetaminophen prn Assessment & Plan (02/26/2023 5:12 PM EDT): - hip pain may be referred pain from knee Lightheadedness 01/20/2016 06/29/2023 Hypertension 01/28/2015 Assessment & Plan (04/10/2024 1:46 PM EDT): -Goal BP < 140/90 per JNC-8, < 130/80 per ACC/AHA guideline -BP at goal today -Continue working on lifestyle modification and medication adherence. -Continue lisinopril 5 mg daily. Assessment & Plan (12/13/2023 1:21 PM EDT): -Goal BP < 140/90 per JNC-8, < 130/80 per ACC/AHA guideline -Continue working on lifestyle modification and medication adherence. -Continue lisinopril 5 mg daily. Assessment & Plan (07/16/2023 5:15 AM EST): -Goal BP < 140/90 per JNC-8, < 130/80 per ACC/AHA guideline -Continue working on lifestyle modification and medication adherence. -Continue lisinopril 5 mg daily. Assessment & Plan (02/26/2023 5:10 PM EDT): -Goal BP < 140/90 per JNC-8, < 130/80 per ACC/AHA guideline -Continue working on lifestyle modification and medication adherence. -Continue lisinopril 5 mg daily. Assessment & Plan (08/22/2022 12:53 PM EST): -Goal BP < 140/90 per JNC-8, < 130/80 per ACC/AHA guideline -Continue working on lifestyle modification and medication adherence. -Continue lisinopril 5 mg daily. Tubular adenoma of colon 12/19/2013 Assessment & Plan (07/16/2023 5:32 AM EST): - followed by Dr. Truong - tubular adenoma on 01/13/13 - tubular adenoma on 06/20/19 Assessment & Plan (02/26/2023 5:11 PM EDT): - last colonoscopy by Dr. Truong on 01/13/13 - referred back for another colonoscopy; pt needs to call the office in March Assessment & Plan (08/22/2022 12:42 PM EST): - last colonoscopy by Dr. Truong on 01/13/13 - refer back for another colonoscopy Depressive disorder 04/04/2012 Assessment & Plan (02/26/2023 5:15 PM EDT): - continue current medications Diabetes mellitus, type 2 04/04/2012 Assessment & Plan (04/10/2024 2:01 PM EDT): - HgbA1C 7.3% on 04/10/24 - Continue Jardiance 10mg daily - Continue metformin 1,000mg BID - Continue Trulicity 1.5 mg weekly, patient was advised to check dosage of her current trulicity - Continue lifestyle modification and SMBG. -Last eye exam: 05/03/23 Dr. Garrett. No diabetic retinopathy. -Last foot exam: 12/13/23 -Last microalbumin test: 08/04/23 UACR 9.7 -Last lipid profile: 08/04/23 TC 143 TG 116 LDL 58 HDL 65 -Last dental exam: 01/27/15 Immunizations: Up to date per pt (received at [facility]) Follow up in 3-4 mo. Assessment & Plan (12/13/2023 1:24 PM EDT): - HgbA1C 7.4% on 12/13/23 - Continue Jardiance 10mg daily - Continue metformin 1,000mg BID - Start Trulicity 1.5 mg weekly - Continue lifestyle modification and SMBG. -Last eye exam: 05/03/23 Dr. Garrett. No diabetic retinopathy. -Last foot exam: 12/13/23 -Last microalbumin test: 08/04/23 UACR 9.7 -Last lipid profile: 08/04/23 TC 143 TG 116 LDL 58 HDL 65 -Last dental exam: 01/27/15 Immunizations: Up to date per pt (received at [facility]) Follow up in 3-4 mo. Assessment & Plan (07/16/2023 5:22 AM EST): - HgbA1C 7.4% on 07/04/23, slowly trending up 7.3% on 02/22/23, 7/2% on 08/18/22 - Continue Jardiance 10mg daily - Continue metformin 1,000mg BID - Continue Trulicity 0.75mg weekly; will consider increasing to 1.5 mg weekly if no improvement at next visit - Continue lifestyle modification and SMBG. -Last eye exam: 05/03/23 Dr. Garrett. No diabetic retinopathy. -Last foot exam: 07/04/23 -Last microalbumin test: 06/24/22 UACR 11 -Last lipid profile: 06/24/22 TC 143 TG 116 LDL 58 HDL 65 -Last dental exam: 01/27/15 Immunizations: Up to date per pt (received at [facility]) Follow up in 3-4 mo. Assessment & Plan (02/26/2023 5:14 PM EDT): - HgbA1C 7.3% on 02/22/23, 7/2% on 08/18/22 - Continue Jardiance 10mg daily - Continue metformin 1,000mg BID - Continue Trulicity 0.75mg weekly - Continue lifestyle modification and SMBG. -Last eye exam: 03/20/21 Dr. Garrett, more recent per pt -Last foot exam: 05/25/22 -Last microalbumin test: 06/24/22 UACR 11 -Last lipid profile: 06/24/22 TC 143 TG 116 LDL 58 HDL 65 -Last dental exam: 01/27/15 Immunizations: Up to date per pt (received at [facility]) Follow up in 3-4 mo. Assessment & Plan (08/22/2022 12:54 PM EST): - HgbA1C 7.2% today 08/18/22, improved from 8.8% on 05/25/22 - Continue Jardiance 10mg daily - Continue metformin 1,000mg BID - Continue Trulicity 0.75mg weekly - Continue lifestyle modification and SMBG. -Last eye exam: 03/20/21 Dr. Garrett, more recent per pt -Last foot exam: 05/25/22 -Last microalbumin test: 06/24/22 UACR 11 -Last lipid profile: 06/24/22 TC 143 TG 116 LDL 58 HDL 65 -Last dental exam: 01/27/15 Immunizations: Up to date per pt (received at [facility]) Follow up in 3 mo. Dyslipidemia 04/04/2012 Assessment & Plan (04/10/2024 1:47 PM EDT): - current medication: Atorvastatin 80 mg at bedtime - Last lipid profile: 08/04/23 TC 143 TG 116 LDL 58 HDL 65 - continue working on lifestyle modification - continue high-intensity statin therapy Assessment & Plan (07/16/2023 5:24 AM EST): - current medication: Atorvastatin 80 mg at bedtime - Last lipid profile: 06/24/22 TC 143 TG 116 LDL 58 HDL 65 - continue working on lifestyle modification - continue high-intensity statin therapy Assessment & Plan (02/26/2023 5:14 PM EDT): - current medication: Atorvastatin 80 mg at bedtime - Last lipid profile: 06/24/22 TC 143 TG 116 LDL 58 HDL 65 - continue working on lifestyle modification - continue high-intensity statin therapy Assessment & Plan (08/22/2022 12:50 PM EST): - current medication: Atorvastatin 80 mg at bedtime - Last lipid profile: 06/24/22 TC 143 TG 116 LDL 58 HDL 65 - continue working on lifestyle modification - continue high-intensity statin therapy Hypothyroidism 04/04/2012 Assessment & Plan (04/15/2024 6:27 PM EDT): - current replacement: levothyroxine 100 mcg daily - Last TSH 2.06 in Aug 2023 - Continue current treatment plan. Assessment & Plan (12/13/2023 1:22 PM EDT): - current replacement: levothyroxine 100 mcg daily - Last TSH 0.96 on 06/14/22 - Continue current treatment plan. Assessment & Plan (07/16/2023 5:20 AM EST): - current replacement: levothyroxine 100 mcg daily - Last TSH 0.96 on 06/14/22 - Continue current treatment plan. Assessment & Plan (02/26/2023 5:13 PM EDT): - current replacement: levothyroxine 100 mcg daily - Last TSH 0.96 on 06/14/22 - Continue current treatment plan. Assessment & Plan (08/22/2022 12:52 PM EST): - current replacement: levothyroxine 100 mcg daily - Last TSH 0.96 on 06/14/22 - Continue current treatment plan. Vitamin D deficiency 04/04/2012 Resolved Problems Problem Noted Date Diagnosed Date Resolved Date Obesity 04/04/2012 08/22/2022 Encounters Date Type Department Care Team Description 08/23/2024 Telephone [facility] [address] [place] [address] Cherelle Irving MA september recall from Last 3 Months Immunizations Name Administration Dates Next Due Hep B, adult 06/20/2013,01/29/2013,12/21/2012 Influenza High-dose Quadriva lent Preservative Free 07/04/2023 Influenza injectable quadriv alent IIV4 with preservative 07/29/2017,04/26/2016,07/08/2015 Influenza injectable quadriv alent preservative free 06/14/2019 Influenza, High Dose Seasona l, Preservative Free 04/10/2024 Influenza, IIV3, injectable 04/16/2011 Influenza, Split (incl. hialry fied surface antigen) 12/19/2013,04/04/2012 Moderna Covid-19 Vaccine 12+ 05/01/2021 Pneumococcal Conjugate PCV 20 12/13/2023 Pneumococcal Polysaccharide PPSV23 04/17/2008, TD (adult), 2 Lf tetanus tox oid, preservative free, adsorbed 05/25/2022,09/01/2009,05/29/1999 Tdap 04/04/2012 Zoster, live 07/29/2017 Social History Tobacco Use Types Packs/Day Years Used Date Smoking Tobacco: Former Cigarettes Passive Smoke Exposure: Never Smokeless Tobacco: Never Tobacco Cessation:Counseling Given: Not Answered Depression Answer Date Recorded Patient Health Questionnaire-9 Score 0 12/13/2023 Patient Health Questionnaire-9 Score 0 12/13/2023 Last PHQ-9: Questionnaire Data Not on file 0 12/13/2023 Housing Stability Answer Date Recorded What is your housing situation today? I have stephanie rubio 12/02/[address] you li ve. Do you have problems with any of the following? None of the above 12/02/2023 Food Insecurity Answer Date Recorded Within the past 12 months, y ou worried that your food would run out before you got money to buy more: Never True 12/02/2023 Within the past 12 months,th e food you bought just didn't last and you didn't have enough money to get more: Never True 09/2023 Transportation Answer Date Recorded In the past 12 months, has l ack of transportation kept you from medical appts, meetings, work or from getting things needed for daily living? No 12/02/2023 Utilities Answer Date Recorded In the past 12 months, has t he electric, gas, oil or water company threatened to shut off services in your home? No 12/02/2023 Depression Answer Date Recorded Patient Health Questionnaire-2 Score 0 12/13/2023 Comments Unknown Sex and Gender Information Value Date Recorded Sex Assigned at Female 05/31/2022 10:14 AM EDT Legal Sex Female 10:14 AM EDT Gender Identity Female 05/31/2022 10:14 AM EDT Sexual Orientation Choose not to disclose 2021 10:14 AM EDT Last Filed Vital Signs Vital Sign Reading Time Taken Comments Blood Pressure 121/73 04/10/2024 1:39 PM EDT Pulse 70 04/10/2024 1:39 PM EDT Temperature 36.7 ??C (98.1 ??F) 04/10/2024 1:39 PM ED T Respiratory Rate 16 04/10/2024 1:39 PM EDT Oxygen Saturation 97% 02/28/2024 8:42 AM EDT Inhaled Oxygen Concentration - - Weight 72.3 kg (159 lb 6.4 oz) 04/10/2024 1:39 P M EDT Height 159.2 cm (5' 2.69 ) 04/10/2024 1:39 PM ED T Body Mass Index 28.52 04/10/2024 1:39 PM EDT Plan of Treatment Upcoming Encounters Date Type Department Care Team (Late st Contact Info) Description 11/06/2024 10:00 AM EDT Office Visit [facility] [address] [place] [phone] Health Maintenance Due Date Last Done Comments CT Colonography 1955 FIT DNA/Cologuard 1955 FIT 1955 FOBT 1955 Sigmoidoscopy 1955 Alcohol/Substance Use Screening 1968 Hepatitis C Screening 1974 Zoster Vaccines (2 of 3) 09/23/2017 07/29/2017 Eye Exam 03/31/2024 03/31/2022 COVID-19 Vaccine ( season) 2024 08/23/2023, 03/09/2022, 05/01/2021, Additional history exists Colonoscopy 06/10/2024 06/10/2019 Colorectal Cancer Screening 06/10/2024 Diabetes: Hemoglobin A1C 07/10/2024 024, 12/13/2023, 07/04/2023, Additional history exists Diabetes: Urine Protein Screening 08/04/2024 08/04/2023, 06/14/2022, 05/06/2021, Additional history exists Lipid Panel 08/04/2024 08/04/2023, 06/01, 05/06/2021 SDOH Screening 12/01/2024 12/02/2023 Depression Screening 12/12/2024 12/13/2023, 12/13/19 24 Diabetes: Foot Exam 12/12/2024 12/13/2023 Tobacco Screening 02/27/2025 02/28/2024 Mammogram 07/26/2025 07/26/2023, 04/2022, 06/16/2021, Additional history exists RSV Patients and Patients Aged 60 years or older (1 - 1-dose 75+ series) 11/17/2031 DTaP/Tdap/Td Vaccines (3 - Td or Tdap) 05/25/2032 05/25/2022, 04/04/2012, 09/01/2009, Additional history exists Hepatitis B Vaccines Completed 06/20/2013, 01/29/2013, 12/21/2012 Pneumococcal Vaccine: 50+ Years Completed 12/13/2023, 04/17/2008, 10/06/2000 Influenza Vaccine Completed 04/10/2024, , 06/14/2019, Additional history exists HIB Vaccines Aged Out No longer eligi ble based on patient's age to complete this topic HPV Vaccines Aged Out No longer eligi ble based on patient's age to complete this topic Hepatitis A Vaccines Aged Out No long er eligible based on patient's age to complete this topic IPV Vaccines Aged Out No longer eligi ble based on patient's age to complete this topic Meningococcal Vaccine Aged Out No thelma colton eligible based on patient's age to complete this topic RSV under 20 months Aged Out No longe r eligible based on patient's age to complete this topic Rotavirus Vaccines Aged Out No longer eligible based on patient's age to complete this topic Procedures Procedure Name Priority Date/Time Associated Diagnosis Comments POCT GLYCOSYLATED HEMOGLOBIN (HGB A1C) Routine 04/10/2024 1:46 PM EDT Type 2 diabetes mellitus without complication, without long-term current use of insulin ([facility]/HCC) LIPID PANEL WITH REFLEX TO DIRECT LDL Routine 08/04/2023 8:34 AM EST Type 2 diabetes mellitus without complication, without long-term current use of insulin ([facility]) ALBUMIN, RANDOM URINE W/CREATININE Routine 08/04/2023 8:31 AM EST Type 2 diabetes mellitus without complication, without long-term current use of insulin ([facility]) BI MAMMOGRAM SCREENING TOMOSYNTHESIS BILATERAL Routine 07/26/2023 4:00 PM EST DIABETES EYE EXAM Routine 03/31/2022 COLONOSCOPY Routine 06/10/2019 from Last 3 Months or Most Recently Relevant to Health Maintenance Results * (ABNORMAL) POCT glycosylated hemoglobin (Hgb A1c) (04/10/2024 1:46 PM EDT) Hemoglobin A1C 7.3(A) 4.0 - 6.0 % QC Media Lot # [id number] Lot# Expiration Date Blood Capillary blood specimen / Unknown 04/10/2024 1:46 PM EDT Lolis Gastelum MD POINT OF CARE TEST ENTER/EDIT OR DERABLES Final Result * Lipid Panel with Reflex to Direct LDL (08/04/2023 8:34 AM EST) Triglycerides 70 <150 mg/dL [facility] Comment:Desirable Triglyceri de: less than 150 mg/dLBorderline High Triglyceride 150-199 mg/dLHigh Triglyceride: 200-499 mg/dLVery High Triglyceride: greater than or equal to 5OO mg/dL Cholesterol 169 <200 mg/dL [facility] Comment:Desirable Cholestero l: less than 200 mg/dLBorderline High Cholesterol: 200-239 mg/dLHigh Cholesterol: greater than 239 mg/dL LDL Cholesterol Calculated 86 <100 mg/dL [facility] Comment:Desirable LDL: less than 100 mg/dLNear Optimal/Above Optimal LDL: 110- 129 mg/dLBorderline High LDL: 130-159 mg/dLHigh LDL: 160-189 mg/dLVery High LDL: greater than or equal to 190 mg/dL HDL Cholesterol 69 >40 mg/dL [facility] Comment:Desirable HDL: great er than 40 mg/dL Note: This HDL assay may give artificially low results in patients with liver disease. Blood 08/04/2023 8:34 AM EST 08/04/2023 8:34 AM EST us Lolis Gastelum MD LAB BLOOD ORDERABLES Final Resul t Performing Organization Address [facility] Co de Phone Number [facility] [address] [place] [phone] * Albumin, Random Urine W/Creatinine (08/04/2023 8:31 AM EST) Creatinine, Urine 143.27 mg/dL [facility] Microalbumin Urine 14.0 mg/L [facility] Microalbum Creatinine Ratio Ur 9.7 <30 ug/mg cr [facility] Comment:Albumin/Creatinine R atio Reference Ranges: Normal: < 30 ug/mg creatinine Microalbuminuria: 30 - 300 ug/mg creatinineClinical Albuminuria: > 300 ug/mg creatinine Urine 08/04/2023 8:31 AM EST 08/04/2023 8:40 AM EST us Lolis Gastelum MD LAB URINE ORDERABLES Final Resul t Performing Organization Address [facility]/ZIP Co de Phone Number [facility] [address] [place] [address] [phone] * BI Mammogram Screening Tomosynthesis Bilateral (07/26/2023 4:00 PM EST) Anatomical Region Laterality Modality Breast Bilateral Mammography 07/26/2023 4:00 PM EST Narrative 07/29/2023 11:06 PM EST ? [facility] ? [address] ?[place] [address] ? Mammography Report ? Signed ? Patient: Lombay,Lotus ?MR#: [id number] ?? 4 ? : 1955 ?Acct:[id number] ? Age/Sex: 67 / F ?ADM Date: 07/26/23 ? Loc: HO.MAMMO ? Attending Dr: Lolis Gastelum MD ? Ordering Physician: Lolis Gastelum MD ?Results: 1Negative ? Date of Service: 07/26/23 ?Follow Up: 1 Year From Orig ?? inal Mammogram ? Procedure(s): MM tomosynthesis screening BI ?? Accession Number(s): [id number] ? cc: Lolis Gastelum MD ? EXAMINATION: ?? MM SCREENING DIGITAL BREAST TOMOSYNTHESIS, BILATERAL ? CLINICAL INFORMATION: ? Screening. Asymptomatic. ? COMPARISON: ?? Mammography: This study is compared with prior exams dating back to ?? 2018. ? TECHNIQUE: ?? Digital breast tomosynthesis is performed in both the craniocaudal and ?? mediolateral oblique views along with computer-aided detection (CAD). ?? Synthesized 2D images are generated from the tomosynthesis. ? FINDINGS: ?? There are scattered areas of fibroglandular density (ACR BI-RADS breast ?? composition Category b). ? There are no significant masses, abnormal calcifications, or other ?? abnormalities. ? MM/MM tomosynthesis screening BI ?? IMPRESSION: ?? No mammographic evidence of malignancy. ? ASSESSMENT: ? BI-RADS BI-RADS 1 - Negative ? RECOMMENDATION: ?? Routine annual mammography screening. ? 1 year F/U ? This examination should not preclude the clinical evaluation of a ?? suspicious palpable abnormality. ? This patient's information was entered into a reminder system with a ?? target due date for their next mammogram. ? Dictated By: ?Kajal Watts MD ? Signed By: ?<Electronically signed by Kajal Watts MD in OV> ? 07/29/ 2303 ? DD/ 1600 ? TD/TT: ? Bag Repairer: ? Procedure Note Donotuseinterpreter, Image - 07/29/2023 [facility] [address] [place] [address] Mammography Report Signed Patient: Lotus GarzaMR#: [id number] 4 : [id number] Age/Sex: 67 / FADM Date: 07/26/23 Loc: [facility] Attending Dr: Lolis Gastelum MD Ordering Physician: Lolis Gastelum MDResults: 1Negative Date of Service: 07/26/23Follow Up: 1 Year From Orig inal Mammogram Procedure(s): MM tomosynthesis screening BI Accession Number(s): [id number] cc: Lolis Gastelum MD EXAMINATION: MM SCREENING DIGITAL BREAST TOMOSYNTHESIS, BILATERAL CLINICAL INFORMATION: Screening. Asymptomatic. COMPARISON: Mammography: This study is compared with prior exams dating back to 2018. TECHNIQUE: Digital breast tomosynthesis is performed in both the craniocaudal and mediolateral oblique views along with computer-aided detection (CAD). Synthesized 2D images are generated from the tomosynthesis. FINDINGS: There are scattered areas of fibroglandular density (ACR BI-RADS breast composition Category b). There are no significant masses, abnormal calcifications, or other abnormalities. MM/MM tomosynthesis screening BI IMPRESSION: No mammographic evidence of malignancy. ASSESSMENT: BI-RADS BI-RADS 1 - Negative RECOMMENDATION: Routine annual mammography screening. 1 year F/U This examination should not preclude the clinical evaluation of a suspicious palpable abnormality. This patient's information was entered into a reminder system with a target due date for their next mammogram. Dictated By: Kajal Watts MD Signed By: <Electronically signed by Kajal Watts MD in OV> 07/29/23 2303 DD/ 1600 TD/TT: Bag Repairer: Lolis Gastelum MD IMG BI PROCEDURES Final Result * Diabetes Eye Exam (03/31/2022) Eye Exam Normal Normal [facility] Unassigned Pcp HEALTH MAINTENANCE Final Result * Colonoscopy (06/10/2019) Colonoscopy Normal Normal Lolis Gastelum MD HEALTH MAINTENANCE Edited Result - Final from Last 3 Months or Most Recently Relevant to Health Maintenance Insurance [facility] DUAL COMPLETE * Guarantor: Lotus Garza Account Type Relation to Patient Date of Phone Billing Address Personal/Family Self [address] [place] Care Teams Bar And Filler Assembler Relationship Specialty Start Date End Date Lolis Gastelum MD [address] [place] [address] PCP - General Family Medicine 08/01/18
--- OUTSIDE RECORDS SUMMARY | 2024-11-02 09:39 | XMS_ITS | Encounter Summary ---
Author Organization [employer] Address [address] [facility] [address]t [place] [address] Care Team Providers Care Keyboard Instrument Tuner Name Role Phone Lolis Gastelum MD Primary Care Provider [phone] Encounter Details Date Type Department Care Team ([facility] st Contact Info) Description 07/20/2023 Abstract [facility] MEDICINE [address] [place], [place] [phone] Lolis Gastelum MD [address] [place], [place] [phone] Social History Tobacco Use Types Packs/Day Years Used Date Smoking Tobacco: Former Cigarettes Passive Smoke Exposure: Never Smokeless Tobacco: Never Depression Answer Date Recorded Patient Health Questionnaire-9 Score 0 08/18/2022 Housing Stability Answer Date Recorded What is your housing situation today? I have stephanie rubio 05/17/[address] you li ve. Do you have problems with any of the following? None of the above 05/17/2023 Food Insecurity Answer Date Recorded Within the past 12 months, y ou worried that your food would run out before you got money to buy more: Never True 05/17/2023 Within the past 12 months,th e food you bought just didn't last and you didn't have enough money to get more: Never True Transportation Answer Date Recorded In the past 12 months, has l ack of transportation kept you from medical appts, meetings, work or from getting things needed for daily living? No 05/17/2023 Utilities Answer Date Recorded In the past 12 months, has t he electric, gas, oil or water company threatened to shut off services in your home? No 05/17/2023 Depression Answer Date Recorded Patient Health Questionnaire-2 Score 0 08/18/2022 Comments Unknown Sex and Gender Information Value Date Recorded Sex Assigned at Female 05/31/2022 10:14 AM EDT Legal Sex Female 10:14 AM EDT Gender Identity Female 05/31/2022 10:14 AM EDT Sexual Orientation Choose not to disclose 2021 10:14 AM EDT documented as of this encounter Plan of Treatment Upcoming Encounters Date Type Department Care Team (Late st Contact Info) Description 11/06/2024 10:00 AM EDT Office Visit [facility] OPTOMETRY [address] [place] [address] documented as of this encounter Procedures Procedure Name Priority Date/Time Associated Diagnosis Comments COLONOSCOPY Routine 06/10/2019 documented in this encounter Results * Hm Colonoscopy (06/10/2019) Colonoscopy Normal Normal Lolis Gastelum MD HEALTH MAINTENANCE Edited Result - Final documented in this encounter Visit Diagnoses Not on filedocumented in this encounter Additional Health Concerns Assessment Noted Time PHQ-9 Depression Total Score: 0 08/18/19 23 11:05 AM EST documented as of this encounter Care Teams Keyboard Instrument Tuner Relationship Specialty Start Date End Date Lolis Gastelum MD [address] [place] [phone] PCP - General Family Medicine 08/01/18 documented as of this encounter
--- OUTSIDE RECORDS SUMMARY | 2024-11-02 09:39 | XMS_ITS | Encounter Summary ---
Author Organization [employer] Address [address] [facility] [address]t [place] [address] Care Team Providers Care Rod Pointer Name Role Phone Lolis Gastelum MD Primary Care Provider [phone] Encounter Details Date Type Department Care Team (Late Contact Info) Description 03/07/2023 Abstract [facility] MEDICINE [address] [place], [place] [phone] Lolis Gastelum MD [address] [place], [place] [phone] Social History Tobacco Use Types Packs/Day Years [...] Description 11/06/2024 10:00 AM EDT Office Visit [facility] OPTOMETRY [address] [place], [place] [phone] documented as of this encounter Procedures Procedure Name Priority Date/Time Associated Diagnosis Comments DIABETES EYE EXAM Routine 03/31/2022 documented in this encounter Results * Diabetes Eye Exam (03/31/2022) Eye Exam Normal Normal Result [facility] Unassigned Pcp HEALTH MAINTENANCE Final Result documented in this encounter Visit Diagnoses Not on filedocumented in this encounter Additional Health Concerns Assessment Noted Time PHQ-9 Depression Total Score: 0 08/18/19 23 11:05 AM EST documented as of this encounter Care Teams Rod Pointer Relationship Specialty Start Date End Date Lolis Gastelum MD [address] [place] [id number] PCP - General Family Medicine 08/01/18 documented as of this encounter
== END 2024-11-02 09:01 | disposition home or self-care (01) ==
LOC: HO.MAMMO 09:00
PROVIDERS: PCP Family Medicine; Visit Provider Family Medicine
DX: Z12.31 Encounter for screening mammogram for malignant neoplasm of breast (principal)
CPT/HCPCS: 77063; 77067

== ENCOUNTER → 2024-11-02 09:45 | Outpatient (BNV) | payer OTHER, SELFPAY | PROVIDERS: PCP Family Medicine; Visit Provider Internal Medicine | DX: Z12.31 Encounter for screening mammogram for malignant neoplasm of breast (principal) | CPT/HCPCS: 77063; 77067 ==

== ENCOUNTER 2024-11-27 11:22 | Outpatient (AMB) | payer OTHER, SELFPAY ==
--- NOTE | 2024-11-27 11:25 | A.OFFVIS_ITS ---
Vital Signs 11/27/24 11:34 Height 5 ft 3 in Weight 162 lb BMI 28.7 Intake Visit Reasons: NewProb- RT hip pain Intake Note: Lotus is a 69 year old female who presents with complaints of progressively worsening pain along the lateral aspect of her right hip. She denies any pain radiating down either lower extremity. She notices her pain mostly at night. She has tried Tylenol and anti-inflammatory medicines which gave her minimal relief. She denies any weakness in either lower extremity. Director Of Officiating Required: Yes Director Of Officiating Services: Director Of Officiating Offered & Declined Accompanied by: Daughter Allergies atropine [] Allergy (Unknown, Verified 11/27/24 11:36) Hives belladonna alkaloids [From ] Allergy (Unknown, Unverified 11/27/24 11:36) INVOLUNTARY SPASMS hyoscyamine [] Allergy (Unknown, Verified 11/27/24 11:36) hives phenobarbital [From ] Allergy (Unknown, Unverified 11/27/24 11:36) INVOLUNTARY SPASMS scopolamine [] Allergy (Unknown, Verified 11/27/24 11:36) hives From Allergy (Unknown, Uncoded 11/27/24 11:36) INVOLUNTARY SPASMS Medication List - Last Reconciled 11/27/24 by Abdirahman Awad MD amitriptyline 25 mg PO BEDTIME atorvastatin 80 mg PO DAILY dulaglutide (Trulicity) mg subcut levothyroxine 100 mcg PO DAILY lisinopril 2.5 mg PO DAILY meclizine 25 mg PO TID PRN metformin ER 1,000 mg PO BID omeprazole 40 mg PO DAILY sertraline 100 mg PO BID sumatriptan succinate 50 mg PO 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 Physical Exam Vital Signs: BMI result Body Mass Index 28.7 Const Other: Well-nourished well-developed very friendly female awake alert and oriented x3 in no acute distress Extrem Other: Bilateral lower extremity examination shows good capillary refill, no skin lesions noted, normal sensation light touch Right hip examination shows full range motion when compared to her left hip, mild discomfort with range of motion, tenderness over her greater trochanteric bursa, no overlying skin lesions Office Procedures AMB Joint Injection/Aspiration Joint Injection/Aspiration Primary Site: other (Right hip greater trochanteric bursa) Prep: site was prepped using aseptic technique Injected: 40 mg of, DepoMedrol and 1% plain lidocaine Procedure: The patient tolerated the procedure well Coding 59987 - Large joint Procedure code (CPT) selection complete Results Reviewed Results Reviewed: X-rays of the patient's right hip taken previously show mild diffuse joint space narrowing, no acute bony abnormalities Assessment & Plan Assessment & Plan (1) Trochanteric bursitis of right hip: Code(s): M70.61 - Trochanteric bursitis, right hip Category: Medical Plan Ms. Garza presents with right hip pain due to greater trochanteric bursitis. I had a lengthy discussion with the patient regarding the treatment options. The risks and benefits of a right hip greater trochanteric bursa cortisone injection were discussed at length with the patient. The patient wished to proceed. She tolerated the injection well. She will continue with her home exercise program. She will contact me prior to her follow-up appointment in 3 months should any questions or concerns arise. Feel free to call me at any time should questions regarding her orthopedic management arise. I spent 20 minutes in reviewing the patient's records and imaging studies, seeing the patient and documenting in the medical record. Orders: Orders AMB Joint Injection/Aspiration Today M70.61 - Trochanteric bursitis, right hip Coding Level of Care Code Est Pt Level 3 (31011) Complex EM visit Add On G2211 Diagnoses Trochanteric bursitis of right hip M70.61 CPT Codes Coding - Large joint: 79485 - Large joint ([id number])
[2024-11-27 11:34] VITALS: BMI 28.7
== END 2024-11-27 11:57 | disposition home or self-care (01) ==
PROVIDERS: PCP Family Medicine; Visit Provider Orthopaedic Surgery
DX: M70.61 Trochanteric bursitis, right hip (principal)
CPT/HCPCS: 20610; 99213

== ENCOUNTER → 2024-11-27 11:22 | Outpatient (BNVA) | payer OTHER, SELFPAY | PROVIDERS: PCP Family Medicine; Visit Provider Orthopaedic Surgery | DX: M70.61 Trochanteric bursitis, right hip (principal) | CPT/HCPCS: 20610; 99212; J1010; J2003 ==

== ENCOUNTER 2024-12-19 10:34 | Outpatient (REF) | payer OTHER, SELFPAY ==
[2024-12-19 11:36] LABS: Hematocrit 38.9 % (37.0-47.0); Hemoglobin 12.3 g/dl (12.0-16.0); Mean Corpuscular HGB Conc 31.6 g/dl (31.0-35.0); Mean Corpuscular Hemoglobin 25.7 pg (27.0-33.0); Mean Corpuscular Volume 81.4 fL (80.0-98.0); Mean Platelet Volume 10.1 fL (9.4-12.3); Platelet Count 248 X10*3/uL (160-400); Red Blood Count 4.78 X10*6/uL (4.20-5.50); Red Cell Distribution Width 13.7 % (11.0-16.0); White Blood Count 5.8 X10*3/uL (4.8-10.8)
--- OUTSIDE RECORDS SUMMARY | 2024-12-19 12:02 | XMS_ITS | Encounter Summary ---
Author Organization [employer] Address [address] [place] [address] 7[address] [place] [address] Care Team Providers Care Chair Mender Name Role Phone Lolis Gastelum MD Primary Care Provider [phone] Reason for Referral * Consultation (Routine) - Authorized Specialty Diagnoses / Procedures Referred By Tino lewis Referred To Contact Cardiology Diagnoses Palpitations Melinda Brito MD [address] [place] [address] Phone: tel: fax: [address] Phone: tel: fax: Referral ID Status Reason Start Date Expiration Date Visits Requested Visits Authorized [id number] Authorized Specialty Services Required 12/18/2024 12/18/2025 1 1 Encounter Details Date Type Department Care Team (Late st Contact Info) Description 12/18/2024 3:00 PM EDT Office Visit [facility] [address] [place] [phone] Melinda Brito MD [address] [place] [phone] Palpitations (Primary Dx) Social History Tobacco Use Types Packs/Day Years [...] AM EDT documented as of this encounter Last Filed Vital Signs Vital Sign Reading Time Taken Comments Blood Pressure 140/79 12/18/2024 2:53 PM EDT Pulse 65 12/18/2024 2:53 PM EDT Temperature 36.7 ??C (98 ??F) 12/18/2024 2:53 PM EDT Respiratory Rate 19 12/18/2024 2:53 PM EDT Oxygen Saturation - - Inhaled Oxygen Concentration - - Weight 72.1 kg (159 lb) 12/18/2024 2:53 PM EDT Height 160 cm (5' 3 ) 12/18/2024 2:53 PM EDT Body Mass Index 28.17 12/18/2024 2:53 PM EDT documented in this encounter Progress Notes * Melinda Brito MD - 12/18/2024 3:00 PM EDT Subjective Patient ID: Lotus Garza is a 69 y.o. female with past medical history of diabetes mellitus type 2, hypertension, hypothyroidism, and migraine who presents to walk in clinic for back pain and palpitations. Per triage call, pt states that she has back pain and has been using patches with some relief but also pt. Has been having palpitations as well. Pt states that out of the blue she eels her heart beating and irregular feelings about twice a day and last for only a few minutes. This has all been going on x 3-4 days. Pt reports she has been having palpitations for 2 weeks that only last a couple seconds and feels some dizziness with it. Denies any excessive caffeine intake. She notes some mild low back pain but reports relief with lidocaine patch. Review of Systems Constitutional: Negative for fever and unexpected weight change. Respiratory: Negative for shortness of breath. Cardiovascular: Positive for palpitations. Negative for chest pain and leg swelling. Gastrointestinal: Negative for abdominal pain. Genitourinary: Negative for difficulty urinating. Musculoskeletal: Positive for back pain. Objective Visit Vitals BP (!) 140/79 (BP Location: Left arm, Patient Position: Sitting, BP Cuff Size: Large adult) Pulse 65 Temp 98 ??F (36.7 ??C) (Oral) Resp 19 Body mass index is 28.17 kg/m??. Physical Exam Constitutional: Appearance: Normal appearance. Cardiovascular: Rate and Rhythm: Normal rate and regular rhythm. Pulses: Normal pulses. Heart sounds: Normal heart sounds. No murmur heard. Pulmonary: Effort: Pulmonary effort is normal. Breath sounds: Normal breath sounds. Musculoskeletal: Cervical back: Normal range of motion and neck supple. Neurological: General: No focal deficit present. Mental Status: She is alert. Psychiatric: Behavior: Behavior normal. Problem List Items Addressed This Visit Palpitations - Primary Palpitations x2 weeks, couple times a day, lasting a couple seconds. No chest pain, nausea or vomiting. Reports mild dizziness. EKG today normal. -referred to cardiology 12/18/24 -ordered TSH, CBC, and BMP 12/18/24 Relevant Orders Referral to Cardiology TSH W/Reflex to FT4 CBC Basic Metabolic Panel ECG 12 lead -No evidence of acute disease process. Unknown etiology. Asymptomatic currently, no concerning symptoms warranting acute intervention. -Ordered labs and referred to specialist. No future appointments. Domitila Lopez, am serving as a scribe to document services personally performed by Dr. Espino, based on the patient's response to questions by provider and providers statements to me. documented in this encounter Miscellaneous Notes * Assessment & Plan Note - Domitila Bland - 12/18/2024 3:08 PM EDTAssociated Problem(s): Palpitations Palpitations x2 weeks, couple times a day, lasting a couple seconds. No chest pain, nausea or vomiting. Reports mild dizziness. EKG today normal. -referred to cardiology 12/18/24 -ordered TSH, CBC, and BMP 12/18/24 -ER precautions discussed. -Seek medical attention for worsening symptoms. documented in this encounter Plan of Treatment Scheduled Orders Name Type Priority Associated Diagnoses Orde r Schedule TSH W/Reflex to FT4 Lab Routine Palpitations Expected: 12/18/2024 (Approximate), Expires: 12/18/2025 Basic Metabolic Panel Lab Routine Palpitations Expected: 12/18/2024 (Approximate), Expires: 12/18/2025 Scheduled Referrals Name Type Priority Associated Diagnoses Order Schedule Referral to Cardiology Outpatient Referral Routine Palpitations Expected: 12/18/2024 (Approximate), Expires: 12/18/2025 documented as of this encounter Procedures Procedure Name Priority Date/Time Associated Diagnosis Comments CBC Routine 12/19/2024 11:00 AM EDT Palpitations ECG 12-LEAD Routine 12/18/2024 3:33 PM EDT Palpitations documented in this encounter Results * (ABNORMAL) CBC (12/19/2024 11:00 AM EDT) White Blood Count 5.8 4.8 - 10.8 X10*3/uL [facility] Red Blood Count 4.78 4.20 - 5.50 X10*6/uL [facility] Hemoglobin 12.3 12.0 - 16.0 g/dl [facility] Hematocrit 38.9 37.0 - 47.0 % [facility] Mean Corpuscular Volume 81.4 80.0 - 98.0 fL [facility] Mean Corpuscular Hemoglobin 25.7(L) 27.0 - 33.0 pg [facility] Mean Corpuscular HGB Conc 31.6 31.0 - 35.0 g/dl [facility] Red Cell Distribution Width 13.7 11.0 - 16.0 % [facility] Platelet Count 248 160 - 400 X10*3/uL [facility] Mean Platelet Volume 10.1 9.4 - 12.3 fL [facility] NRBC Pct Auto 0.0 0.0 - 0.2 /100WBC [facility] NRBC Abs Auto 0.000 0.0 - 0.012 X10*3/uL [facility] Blood Venous blood specimen / Unknown 12/19/2024 11:00 AM EDT 12/19/2024 11:00 AM EDT Melinda Brito MD LAB BLOOD ORDERABLES Final Result [facility] [address] [place] [phone] * ECG 12 lead (12/18/2024 3:33 PM EDT) Narrative Melinda Brito MD - 12/18/2024 3:33 PM EDT NSR 63 bpm Melinda Brito MD ECG ORDERABLES Final Resu lt documented in this encounter Visit Diagnoses Diagnosis Palpitations- Primary documented in this encounter Additional Health Concerns Assessment Noted Time PHQ-9 Depression Total Score: 0 12/13/19 24 1:08 PM EDT documented as of this encounter Care Teams Chair Mender Relationship Specialty Start Date End Date Lolis Gastelum MD [address] [place] [address] PCP - General Family Medicine 08/01/18 documented as of this encounter
--- OUTSIDE RECORDS SUMMARY | 2024-12-19 12:02 | XMS_ITS | Encounter Summary ---
Author Organization [employer] Address [address] [facility] [address]t [place] [address] Care Team Providers Care Licensed Electrician Name Role Phone Lolis Gastelum MD Primary Care Provider [phone] Encounter Details Date Type Department Care Team ([facility] st Contact Info) Description 07/20/2023 Abstract [facility] MEDICINE [address] [place], [place] [phone] Lolis Gastelum MD [address] [place], [place] [phone] Social History Tobacco Use Types Packs/Day Years [...] as of this encounter Plan of Treatment Not on file documented as of this encounter Procedures Procedure [...] documented as of this encounter Care Teams Licensed Electrician Relationship Specialty Start Date End Date Lolis Gastelum MD [address] [place] [address] PCP - General Family Medicine 08/01/18 documented as of this encounter
--- OUTSIDE RECORDS SUMMARY | 2024-12-19 12:02 | XMS_ITS | Encounter Summary ---
Author Organization [employer] Address [address] [facility] 7t [place] [address] Care Team Providers Care College Associate Name Role Phone Lolis Gastelum MD Primary Care Provider [phone] Encounter Details Date Type Department Care Team (Latest Contact Info) Description 12/18/2024 Travel Social History Tobacco Use Types Packs/Day Years [...] on file documented as of this encounter Visit Diagnoses Not on filedocumented in this encounter Additional Health Concerns Assessment Noted Time PHQ-9 Depression Total Score: 0 12/13/19 24 1:08 PM EDT documented as of this encounter Care Teams College Associate Relationship Specialty Start Date End Date Lolis Gastelum MD [address] [place] [address] PCP - General Family Medicine 08/01/18 documented as of this encounter
--- OUTSIDE RECORDS SUMMARY | 2024-12-19 12:02 | XMS_ITS | Encounter Summary ---
Author Organization [employer] Address [address] [facility] 7t [place] [address] Care Team Providers Care Conveyor Mechanic Name Role Phone Lolis Gastelum MD Primary Care Provider [phone] Reason for Visit * Reason Onset Date Comments Nurse Triage 12/18/2024 Encounter Details Date Type Department Care Team ([facility] st Contact Info) Description 12/18/2024 Telephone [facility] MEDICINE [address] [place], [place] [phone] Lolis Gastelum MD [address] [place], [place] [phone] Nurse Triage Social History Tobacco Use Types Packs/Day Years [...] AM EDT documented as of this encounter Miscellaneous Notes * Telephone Encounter - Angélica Pride RN - 12/18/2024 11:45 AM EDT Called pt. Via [employer] interpreter deaf [place] [phone]. Pt. States that she has back pain and has been usingpatches with some relief but also pt. Has been having palpitations as well. Pt. States that out of the blue pt. Feels her heart beating and irregular feelings about twice a day and last for only a few minutes. This has all been going on x 3-4 days pt. States. Pt. Denies any Chest pain or SOB. Pt. Denies palpitations at this time. Advised pt. To come into [facility] walk in for evaluation and possible EKG. Protocol Used: Back Pain (Adult) Protocol-Based Disposition: See in Office or Video Visit Today Video visit offer not recorded Positive Triage Question: * Severe back pain (e.g., excruciating, unable to do any normal activities) and not improved after pain medicine and Care Advice * All higher-acuity triage questions were negative Care Advice Discussed: * Reassurance and Education - Back Pain * Cold or Heat * Sleep * Continue Activity * Pain Medicines Protocol Used: Heart Rate and Heartbeat Questions (Adult) Protocol-Based Disposition: See in Office or Video Visit Today Positive Triage Questions: * Heart beating very rapidly (e.g., > 140 / minute) and not present now (Exception: During exercise.) * Patient wants to be seen * All higher-acuity triage questions were negative Care Advice Discussed: * Healthy Living Tips for People With Palpitations * Telephone Encounter - Alfonso Espinoza - 12/18/2024 11:34 AM EDT Symptoms: Back Pain - Not From Injury, Heartbeat Symptoms (Fast, Slow, or Irregular) Outcome: Schedule a same-day appointment or talk to a nurse or provider today Reason: Caller denied all higher acuity questions Please contact pt at [phone]. (Chilean Speaker) documented in this encounter Plan of Treatment Not on file documented as of this encounter Visit Diagnoses Not on filedocumented in this encounter Additional Health Concerns Assessment Noted Time PHQ-9 Depression Total Score: 0 12/13/19 24 1:08 PM EDT documented as of this encounter Care Teams Conveyor Mechanic Relationship Specialty Start Date End Date Lolis Gastelum MD [address] [place] [address] PCP - General Family Medicine 08/01/18 documented as of this encounter
--- OUTSIDE RECORDS SUMMARY | 2024-12-19 12:02 | XMS_ITS | Encounter Summary ---
Author Organization [employer] Address [address] 7[address] [place] [address] Care Team Providers Care Under Sheriff Name Role Phone Lolis Gastelum MD Primary Care Provider [phone] Encounter Details Date Type Department Care Team ([facility] st Contact Info) Description 08/18/2022 Abstract [facility] MEDICINE [address] [place], [place] [phone] Lolis Gastelum MD [address] [place], [place] [phone] Social History Tobacco Use Types Packs/Day Years [...] AM EST documented as of this encounter Functional Status * Over the past 2 weeks, how often have you been bothered by any of the following problems? Question Answer Date of Assessment Author Patient Health Questionnaire -2 Score 0 08/18/2022 11:05 AM EST Verna Irving MA * Over the past 2 weeks, how often have you been bothered by any of the following problems? Question Answer Date of Assessment Author Little interest or pleasure in doing things Not at all 08/18/2022 11:05 AM Verna Stevenson MA Feeling down, depressed, or hopeless Not at all 08/18/2022 11:05 AM Verna Stevenson MA Trouble falling or staying asleep, or sleeping too much Not at all 08/18/2022 11:05 AM Cherelle Stevenson MA Feeling tired or having little energy Not at all 08/18/2022 11:05 AM Verna Stevenson MA Poor appetite or overeating Not at all 08/18/2022 11 :05 AM Cherelle Stevenson MA Feeling bad about yourself - or that you are a failure or have let yourself or your family down Not at all 08/18/2022 11:05 AM Verna Stevenson MA Trouble concentrating on things, such as reading the newspaper or watching television Not at all 08/18/2022 11:05 AM Verna Stevenson MA Moving or speaking so slowly that other people could have noticed? Or the opposite - being so fidgety or restless that you have been moving around a lot more than usual. Not at all 08/18/2022 11:05 AM Cherelle Mendes MA Thoughts that you would be better off or hurting yourself in some way Not at all 08/18/2022 11:05 AM Blu Stevenson MA Patient Health Questionnaire-9 Score 0 08/18/2022 11:05 AM Priscilla Stevenson MA documented as of this encounter Plan of Treatment Not on file documented as of this encounter Visit Diagnoses Not on filedocumented in this encounter Additional Health Concerns Assessment Noted Time PHQ-9 Depression Total Score: 0 08/18/19 23 11:05 AM EST documented as of this encounter Care Teams Under Sheriff Relationship Specialty Start Date End Date Lolis Gastelum MD [address] [place] [address] PCP - General Family Medicine 08/01/18 documented as of this encounter
--- OUTSIDE RECORDS SUMMARY | 2024-12-19 12:02 | XMS_ITS | Encounter Summary ---
Author Organization [facility] [employer] [facility] [employer] Address [address] [place] [address] 7t [place] [address] Care Team Providers Care Continuous Loft Operator Name Role Phone Lolis Gastelum MD Primary Care Provider [phone] Encounter Details Date Type Department Care Team ([facility] st Contact Info) Description 03/07/2023 Abstract [facility] MEDICINE [address] [place] [address] Lolis Gastelum MD [address] [place], [place] [phone] Social History Tobacco Use Types Packs/Day Years [...] Exam (03/31/2022) Eye Exam Normal Normal Result [facility] Pcp HEALTH MAINTENANCE Final Result documented in this encounter Visit Diagnoses Not on filedocumented in this encounter Additional Health Concerns Assessment Noted Time PHQ-9 Depression Total Score: 0 08/18/19 23 11:05 AM EST documented as of this encounter Care Teams Continuous Loft Operator Relationship Specialty Start Date End Date Lolis Gastelum MD [address] [place] [address] PCP - General Family Medicine 08/01/18 documented as of this encounter
--- OUTSIDE RECORDS SUMMARY | 2024-12-19 12:03 | XMS_ITS | Clinical Summary ---
Author Organization [employer] Address [address] [place] [address] 7t [place] [address] Care Team Providers Care Pitching Coach Name Role Phone Lolis Gastelum MD Primary Care Provider [phone] Allergies Active Allergy Reactions Criticality Noted Date [...] tablet 3 3 Active empagliflozin (Jardiance) 10 MGIndications:[employer] marilou nonintractable headache, unspecified headache type Take [...] Active Problems Problem Noted Date Diagnosed Date Palpitations 12/18/2024 Assessment & Plan (12/18/2024 3:35 PM EDT): Palpitations x2 weeks, couple times a day, lasting a couple seconds. No chest pain, nausea or vomiting. Reports mild dizziness. EKG today normal. -referred to cardiology 12/18/24 -ordered TSH, CBC, and BMP 12/18/24 -ER precautions discussed. -Seek medical attention for worsening symptoms. Left wrist pain 07/16/2023 Assessment & Plan [...] - thigh muscle exercise - evaluated by [facility] Ortho, received steroid injection [...] Up to date per pt (received at [facility]) Follow up in 3-4 mo. Assessment [...] Up to date per pt (received at [facility]) Follow up in 3-4 mo. Assessment [...] Up to date per pt (received at [facility]) Follow up in 3-4 mo. Assessment [...] Up to date per pt (received at [facility]) Follow up in 3-4 mo. Assessment & [...] Up to date per pt (received at [facility]) Follow up in 3 mo. Dyslipidemia [...] Encounters Date Type Department Care Team Description 12/18/2024 3:00 PM EDT Office Visit [facility] [address] [place] [address] Melinda Brito MD Palpitations (Primary Dx) 12/18/2024 Travel 12/18/2024 Telephone [facility] MEDICINE [address] [place] [address] Lolis Gastelum MD Nurse Triage 11/06/2024 10:00 AM EDT Office Visit [facility] [address] [place] [address] Juventino, Ariane, OD Mild nonproliferative diabetic retinopathy of both eyes without macular edema associated with type 2 diabetes mellitus (CMS/HCC) (Primary Dx) 11/06/2024 Travel 11/02/2024 Orders Only [facility] MED[facility] [address] [place] [address] Lolis Gastelum MD from Last 3 Months Immunizations Immunization Administration Dates Next Due Hep B, adult 06/20/2013,01/29/2013,12/21/2012 Influenza High-dose Quadriva lent Preservative Free 07/04/2023 Influenza injectable quadriv alent IIV4 with preservative 07/29/2017,04/26/2016,07/08/2015 Influenza injectable quadriv alent preservative free 06/14/2019 Influenza, High Dose Seasona l, Preservative Free 04/10/2024 Influenza, IIV3, injectable 04/16/2011 Influenza, Split (incl. hilary fied surface antigen) 12/19/2013,04/04/2012 Moderna Covid-19 Vaccine [...] 19 12/18/2024 2:53 PM EDT Oxygen Saturation 97% 02/28/2024 8:42 AM EDT Inhaled Oxygen Concentration - - Weight 72.1 kg (159 lb) 12/18/2024 2:53 PM EDT Height 160 cm (5' 3 ) 12/18/2024 2:53 PM EDT Body Mass Index 28.17 12/18/2024 2:53 PM EDT Plan of Treatment Health Maintenance Due Date Last Done Comments CT Colonography 1955 FIT DNA/Cologuard 1955 FIT 1955 FOBT 1955 Sigmoidoscopy 1955 Alcohol/Substance Use Screening 1968 Hepatitis C Screening 1974 RSV Patients and Patients Aged 60 years or older (1 - Risk 60-74 years 1-dose series) 2016 Zoster Vaccines (2 of 3) 09/23/2017 07/29/2017 Eye Exam 03/31/2023 03/31/2022 COVID-19 Vaccine ( season) 2024 08/23/2023, 03/09/2022, 05/01/2021, Additional history exists Colonoscopy 06/10/2024 06/10/2019 Colorectal Cancer Screening 06/10/2024 Diabetes: Hemoglobin A1C 07/10/2024 024, 12/13/2023, 07/04/2023, Additional history exists Diabetes: Urine Protein Screening 08/04/2024 08/04/2023, 06/14/2022, 05/06/2021, Additional history exists Lipid Panel 08/04/2024 08/04/2023, 06/01, 05/06/2021 SDOH Screening 12/01/2024 12/02/2023 Depression Screening 12/12/2024 12/13/2023, 12/13/19 24 Diabetes: Foot Exam 12/12/2024 12/13/2023 Mammogram 11/02/2025 11/02/2024, 07/02, 07/09/2022, Additional history exists Tobacco Screening 12/18/2025 12/18/2024 DTaP/Tdap/Td Vaccines (3 - Td or Tdap) [...] patient's age to complete this topic Meningococcal B Vaccine Aged Out No l onger eligible based on patient's age to complete [...] 12-LEAD Routine 12/18/2024 3:33 PM EDT Palpitations FUNDUS PHOTOS - OU - BOTH EYES Routine 11/06/2024 10:00 AM EDT Mild nonproliferative diabetic retinopathy of both eyes without macular edema associated with type 2 diabetes mellitus (CMS/HCC) BI MAMMOGRAM SCREENING TOMOSYNTHESIS BILATERAL Routine 11/02/2024 9:16 AM EDT POCT GLYCOSYLATED HEMOGLOBIN (HGB A1C) Routine 04/10/2024 1:46 PM EDT Type 2 diabetes mellitus without complication, without long-term current use of insulin (CMS/HCC) LIPID PANEL WITH REFLEX TO DIRECT LDL Routine 08/04/2023 8:34 AM EST Type 2 diabetes mellitus without complication, without long-term current use of insulin (CMS/HCC) ALBUMIN, RANDOM URINE W/CREATININE Routine 08/04/2023 8:31 AM EST Type 2 diabetes mellitus without complication, without long-term current use of insulin (CMS/HCC) DIABETES EYE EXAM Routine 03/31/2022 COLONOSCOPY Routine 06/10/2019 from Last 3 Months or Most Recently Relevant to Health Maintenance Results * (ABNORMAL) CBC (12/19/2024 11:00 AM EDT) White Blood Count 5.8 4.8 - 10.8 X10*3/uL [facility] Red Blood Count 4.78 4.20 - 5.50 X10*6/uL [facility] Hemoglobin 12.3 12.0 - 16.0 g/dl [facility] Hematocrit 38.9 37.0 - 47.0 % [facility] Mean Corpuscular Volume 81.4 80.0 - 98.0 fL [facility] Mean Corpuscular Hemoglobin 25.7(L) 27.0 - 33.0 pg [facility] Mean Corpuscular HGB Conc 31.6 31.0 - 35.0 g/dl [facility] Red Cell Distribution Width 13.7 11.0 - 16.0 % [facility] Platelet Count 248 160 - 400 X10*3/uL [facility] Mean Platelet Volume 10.1 9.4 - 12.3 fL [facility] NRBC Pct Auto 0.0 0.0 - 0.2 /100WBC [facility] NRBC Abs Auto 0.000 0.0 - 0.012 X10*3/uL [facility] Blood Venous blood specimen / Unknown 12/19/2024 11:00 AM EDT 12/19/2024 11:00 AM EDT us Melinda Brito MD LAB BLOOD ORDERABLES Final Result [facility] [address] [place] [address] [phone] * ECG 12 lead (12/18/2024 3:33 PM EDT) Narrative Melinda Brito MD - 12/18/2024 3:33 PM EDT NSR 63 bpm us Melinda Brito MD ECG ORDERABLES Final Resu lt * Fundus Photos - OU - Both Eyes (11/06/2024 10:00 AM EDT) Ariane Braga, OD - 11/29/2024 3:22 PM EDT Images from the original result were not included. Right Eye Progression has no prior data. Disc findings include normal observations (No NVD). Macula findings include normal observations (No CSME). Vessel findings include normal observations. Periphery findings include (1-2 small hemes in the posterior pole, no NVE). Left Eye Progression has no prior data. Disc findings include normal observations (No NVD). Macula findings include normal observations (No CSME). Vessel findings include normal observations. Periphery findings include (1-2 small hemes in the posterior pole, no NVE). Notes Assessment and Plan: Mild non-proliferative diabetic retinopathy (NPDR) in both eyes. No macular edema. Will monitor in 1 year with a dilated eye exam. us Ariane Jauregui OD OPHTH PHOTOGRAPHY Edited Resu lt - Final * BI Mammogram Screening Tomosynthesis Bilateral (11/02/2024 9:16 AM EDT) Anatomical Region Laterality Modality Breast Bilateral Mammography 11/02/2024 9:16 AM EDT Narrative 11/07/2024 1:06 PM EDT ? [facility] [place] ? [address] [facility] ?[place] [address] ?[phone] ? Mammography Report ? Signed ? Patient: Lombay,Lotus ?MR#: [id number] ?? 4 ? : 1955 ?Acct:[id number] ? Age/Sex: 68 / F ?ADM Date: 04/04/25 ? Loc: HO.MAMMO ? Attending Dr: Lolis Sakurai MD ? Ordering Physician: Lolis Gastelum MD ?Results: 1Negative ? Date of Service: 11/02/24 ?Follow Up: 1 Year From Orig ?? inal Mammogram ? Procedure(s): MM tomosynthesis screening BI ?? Accession Number(s): [id number] ? cc: Lolis Gastelum MD ? EXAMINATION: ?? MM SCREENING DIGITAL BREAST TOMOSYNTHESIS, BILATERAL ? CLINICAL INFORMATION: ? Screening. Asymptomatic. ? COMPARISON: ?? Mammography: Comparison is made with available priors ? TECHNIQUE: ?? Digital breast mammography with tomosynthesis is performed in both the ?? craniocaudal and mediolateral oblique views along with computer-aided ?? detection (CAD). ? FINDINGS: ?? There are scattered areas [...] due date for their next mammogram. ? Electronically signed by: ??Nette House DO ??11/07/2024 01:03 PM EDT ?? RP ? Dictated By: ?Nette House DO ? Signed By: ?<Electronically signed by Nette House, DO in OV> ? 11/07/24 1303 ? DD/ 0916 ? TD/TT: 11/02/24 0933 ? Fire Dispatcher: ? Procedure Note Donotuseinterpreter, Image - 11/07/2024 [facility] [address] [place], [place] [address] Mammography Report Signed Patient: Lotus GarzaMR#: [id number] 4 : 1955cct:[id number] Age/Sex: 68 / FADM Date: 11/02/24 Loc: HO.MAMMO Attending Dr: Lolis Gastelum MD Ordering Physician: Lolis Gastelum MDResults: 1Negative Date of Service: 11/02/24Follow Up: 1 Year From Orig inal Mammogram Procedure(s): MM tomosynthesis screening BI Accession Number(s): [id number] cc: Lolis Gastelum MD EXAMINATION: MM SCREENING DIGITAL BREAST TOMOSYNTHESIS, BILATERAL CLINICAL INFORMATION: Screening. Asymptomatic. COMPARISON: Mammography: Comparison is made with available priors TECHNIQUE: Digital breast mammography with tomosynthesis is performed in both the craniocaudal and mediolateral oblique views along with computer-aided detection (CAD). FINDINGS: There are scattered areas of fibroglandular [...] target due date for their next mammogram. Electronically signed by: Nette House DO 11/07/2024 01:03 PM EDT Dictated By: Nette House DO Signed By: <Electronically signed by Nette House DO in OV> 11/07/24 1303 DD/ 0916 TD/TT: 11/02/24 0933 Fire Dispatcher: Lolis Gastelum MD IMG BI PROCEDURES Final Result * (ABNORMAL) POCT glycosylated hemoglobin (Hgb A1c) [...] 8:34 AM EST) Triglycerides 70 <150 mg/dL [facility] Comment:Desirable Triglyceri de: less than 150 [...] 190 mg/dL HDL Cholesterol 69 >40 mg/dL [facility] Comment:Desirable HDL: great er than 40 mg/dL Note: This HDL assay may give artificially low results in patients with liver disease. Blood 08/04/2023 8:34 AM EST 08/04/2023 8:34 AM EST Lolis Gastelum MD LAB BLOOD ORDERABLES Final Resul t [facility] [address] [place] [address] [phone] * Albumin, Random Urine W/Creatinine (08/04/2023 8:31 AM EST) Creatinine, Urine 143.27 mg/dL [facility] Microalbumin Urine 14.0 mg/L [facility] Microalbum Creatinine Ratio Ur 9.7 <30 ug/mg cr [facility] Comment:Albumin/Creatinine R atio Reference Ranges: Normal: < 30 ug/mg creatinine Microalbuminuria: 30 - 300 ug/mg creatinineClinical Albuminuria: > 300 ug/mg creatinine Urine 08/04/2023 8:31 AM EST 08/04/2023 8:40 AM EST us Lolis Gastelum MD LAB URINE ORDERABLES Final Resul t [facility] [address] [place] [address] [phone] * Diabetes Eye Exam (03/31/2022) Eye Exam Normal Normal [facility] Unassigned Pcp HEALTH MAINTENANCE Final Result * Colonoscopy (06/10/2019) Colonoscopy Normal Normal us Lolis Gastelum MD HEALTH MAINTENANCE Edited Result - Final from Last 3 Months or Most Recently Relevant to Health Maintenance Insurance [facility] DUAL COMPLETE * Guarantor: Lotus Garza Account Type Relation to Patient Date of Phone Billing Address Personal/Family Self [address] [place] Care Teams Pitching Coach Relationship Specialty Start Date End Date Lolis Gastelum MD [address] [place] [address] PCP - General Family Medicine 08/01/18
[2024-12-19 13:42] LABS: Cholesterol 175 mg/dL (<200); HDL Cholesterol 69 mg/dL (>40); LDL Cholesterol Calculated 88 mg/dL (<100); Triglycerides 93 mg/dL (<150)
[2024-12-19 13:54] LABS: Folate 13.1 ng/mL (> or = 4.0); Vitamin B12 395 pg/mL (200-900)
[2024-12-19 14:56] LABS: Reflex LDLD? No
[2024-12-19 15:12] LABS: Creatinine Urine 167.77 mg/dL; Microalbum/Creatinine Ratio Ur 16.6 ug/mg cr (<30)
[2024-12-19 15:25] LABS: Alanine Aminotransferase 21 U/L (0-31); Albumin Level 3.9 g/dL (3.5-5.0); Alkaline Phosphatase 62 U/L (39-117); Anion Gap 12 (12-20); Aspartate Amino Transferase 22 U/L (5-31); Bilirubin Total 0.4 mg/dL (0.0-1.0); Blood Urea Nitrogen 14 mg/dL (9-16); Carbon Dioxide 28 mmol/L (22-29); Chloride 106 mmol/L (96-108); Estimated Glomerular Filt Rate 56; Glucose Random 132 mg/dL (60-115); Potassium 4.7 mmol/L (3.3-5.1); Sodium 141 mmol/L (135-145); Total Protein 6.8 g/dL (6.5-8.0)
[2024-12-19 15:30] LABS: TSH reflex Free T4 1.78 uIU/mL (0.32-4.0)
== END 2024-12-19 10:35 | disposition home or self-care (01) ==
LOC: HO.LAB 10:34
PROVIDERS: PCP Family Medicine; Visit Provider Family Medicine
DX: R00.2 Palpitations (principal); E11.9 Type 2 diabetes mellitus without complications
CPT/HCPCS: 36415; 80053; 80061; 82043; 82570; 82607; 82746; 84443; 85027

== ENCOUNTER 2025-01-18 09:17 | Outpatient (REF) | payer OTHER, SELFPAY ==
--- OUTSIDE RECORDS SUMMARY | 2025-01-18 09:37 | XMS_ITS | Encounter Summary ---
Author Organization [employer] Address [address] [place] [address] 7t [place] [address] Care Team Providers Care Continuous Churn Buttermaker Name Role Phone Lolis Gastelum MD Primary Care Provider [phone] Encounter Details Date Type Department Care Team ([facility] st Contact Info) Description 08/18/2022 Abstract [facility] MEDICINE [address] [place], [place] [phone] Lolis Gastelum MD [address] [place], [place] [phone] Social History Tobacco Use Types Packs/Day Years [...] Care Team (Late st Contact Info) Description 01/31/2025 10:30 AM EDT Office Visit [facility] [address] [place], [place] [phone] Lolis Gastelum MD [address] [place] [address] documented as of this encounter Visit Diagnoses Not on filedocumented in this encounter Additional Health Concerns Assessment Noted Time PHQ-9 Depression Total Score: 0 08/18/19 23 11:05 AM EST documented as of this encounter Care Teams Continuous Churn Buttermaker Relationship Specialty Start Date End Date Lolis Gastelum MD [address] [place] [address] PCP - General Family Medicine 08/01/18 documented as of this encounter
[2025-01-18 10:01] LABS: MANUAL DIFF FLAG NO
[2025-01-18 10:11] LABS: Basophils Percent Auto 0.5 % (0-2); Eosinophils Absolute Auto 0.1 X10*3/uL (0.0-0.4); Eosinophils Percent Auto 1.3 % (0-4); Hemoglobin 11.8 g/dl (12.0-16.0); Imm Gran Abs Auto 0.02 X10*3/uL (0.00-0.03); Imm Gran Pct Auto 0.3 % (0.0-0.4); Lymphocytes Absolute Auto 2.3 X10*3/uL (1.2-4.9); Lymphocytes Percent Auto 37.1 % (20-40); Mean Corpuscular HGB Conc 31.9 g/dl (31.0-35.0); Mean Corpuscular Hemoglobin 25.3 pg (27.0-33.0); Mean Corpuscular Volume 79.4 fL (80.0-98.0); Mean Platelet Volume 9.9 fL (9.4-12.3); Monocytes Absolute Auto 0.5 X10*3/uL (0.1-1.2); Monocytes Percent Auto 7.2 % (2-11); Neutrophils Absolute Auto 3.3 x10*3/uL (2.0-8.3); Neutrophils Percent Auto 53.6 % (45-73); Platelet Count 222 X10*3/uL (160-400); Red Blood Count 4.66 X10*6/uL (4.20-5.50); Red Cell Distribution Width 14.4 % (11.0-16.0); White Blood Count 6.2 X10*3/uL (4.8-10.8)
[2025-01-18 10:39] LABS: Anion Gap 8 (12-20); Blood Urea Nitrogen 15 mg/dL (9-16); Carbon Dioxide 27 mmol/L (22-29); Chloride 108 mmol/L (96-108); Estimated Glomerular Filt Rate 53; Glucose Random 123 mg/dL (60-115); Potassium 3.9 mmol/L (3.3-5.1); Sodium 139 mmol/L (135-145)
[2025-01-18 10:45] LABS: Thyroid Stimulating Hormone 1.69 uIU/mL (0.32-4.0)
== END 2025-01-18 09:18 | disposition home or self-care (01) ==
LOC: HO.10HDL 09:17
PROVIDERS: Visit Provider Family Medicine
DX: R00.2 Palpitations (principal)
CPT/HCPCS: 36415; 80048; 84443; 85025

== ENCOUNTER 2025-02-28 08:09 | Outpatient (REF) | payer OTHER, SELFPAY ==
--- OUTSIDE RECORDS SUMMARY | 2025-03-01 08:13 | XMS_ITS | Clinical Summary ---
Author Organization [address] [facility] Address [address] [place] [address] Phone Care Team Providers Care Supervisor Grips Name Role Phone Lolis Gastelum MD Primary Care Provider [phone] Social History Tobacco Use Types Packs/Day Years Used Date Smoking Tobacco: Never Assessed Comments Unknown Sex and Gender Information Value Date Recorded Sex Assigned at Not on file Legal Sex Female 3:57 PM EDT Gender Identity Not on file Sexual Orientation Not on file Plan of Treatment Upcoming Encounters Date Type Department Care Team (Late st Contact Info) Description 03/13/2025 1:00 PM EDT Consult [facility] [address] [phone] Purvi Watt PA [address] [phone] Health Maintenance Due Date Last Done Comments Breast Cancer Screening 1955 DTaP,Tdap,and Td Vaccines (1 - Tdap) 11/17/1975 Pneumococcal Vaccine: 50+ Ye ars (1 of 1 - PCV) 2006 Zoster Vaccines (1 of 2) 2006 COVID-19 Vaccine ( - 2023-2 5 season) 2024 Depression Screening 08/01/2024 Colorectal Cancer Screening: Colonoscopy 02/16/2025 Falls Risk Assessment 02/16/2025 Hepatitis C Screening 02/16/2025 Medicare Annual Wellness Visit 02/16/2025 Osteoporosis Screening (Bone Density Screening) 02/16/2025 Social Influencers of Health Screening 02/16/2025 Influenza Vaccine (#1) 2025 RSV Immunization Adult Patie nts (1 - 1-dose 75+ series) 11/17/2031 HIB Vaccines Aged Out No longer eligi ble based on patient's age to complete this topic HPV Vaccines Aged Out No longer eligi ble based on patient's age to complete this topic Hepatitis A Vaccines Aged Out No long er eligible based on patient's age to complete this topic Hepatitis B Vaccines Aged Out No long er eligible based on patient's age to complete this topic IPV Vaccines Aged Out No longer eligi ble based on patient's age to complete this topic MMR Vaccines Aged Out No longer eligi ble based on patient's age to complete this topic Meningococcal ACWY Vaccine Aged Out N o longer eligible based on patient's age to complete this topic Meningococcal B Vaccine Aged Out No l onger eligible based on patient's age to complete this topic RSV Immunization Patients Un adonis 20 months Aged Out No longer eligible b ased on patient's age to complete this topic Varicella Vaccines Aged Out No longer eligible based on patient's age to complete this topic Insurance MEDICAID - [place] [employer] MEDICARE Care Teams Supervisor Grips Relationship Specialty Start Date End Date Lolis Gastelum MD [address] [place] [phone] PCP - General Family Medicine 02/15/25
--- OUTSIDE RECORDS SUMMARY | 2025-03-01 08:13 | XMS_ITS | Patient Health Record ---
Author Organization [facility] Address [address] [place] [address] Care Team Providers Care Client Service Professional Name Role Phone Oriana AZAR, Lolis Primary Care Provider Osito Edge Jr Unavailable Allergies Allergen (clinical drug ingredient) Drug/Non Drug Allergy documented on EMR Reaction Allergy Type Onset Date Status atropine / hyoscyamine / phenobarbital / scopolamine Unknown Drug Allergy Active Reason For Referral No Information Medications Medication SIG (Take, Route, Frequency, Duration) Notes Start Date End Date Status Senna 8.6 MG as directed Orally a s directed Active Amitriptyline HCl 10 MG 1 tablet at bedt stacia Orally Once a day Active metFORMIN HCl 500 MG 1 tablet with a carmen l Orally twice a day Active MiraLax (colon prep) 8.3 ounce ((238) grams mixed with Gatorade or Crystal Light orally begin at 5:00 p.m. the day before the procedure for 1 day 02/28/2019 Active Levothyroxine Sodium 100 MCG 1 tablet on an empty stomach in the morning Orally Once a day for 30 day(s) Active Omeprazole 40 MG 1 capsule Orally Onc e a day for 30 day(s) Active Lisinopril 2.5 MG 1 tablet Orally Once a day for 30 day(s) Active Atorvastatin Calcium 80 MG 1 tablet Oral ly Once a day for 30 day(s) Active Clotrimazole 1 % 1 application at bed time Vaginal Once a day for 7 day(s) Active Vitamin D 1000 UNIT 1 tablet Orally Once a day for 30 day(s) Active Aspir-Low 81 MG 1 tablet Orally Once a day for 30 day(s) Active Immunizations Vaccine Route Administration Date Status Comme nts Influenza Unknown 06/07/2018 Administered Social History Tobacco Use: Social History Observation Description Date Details (start date - stop date) Former Smoker NA - NA Tobacco Use/Smoking Question Answer Notes Patient is a former smoker How long has it been since you last smoked? > 10 years Problems Problem Type SNOMED Code ICD Code Onset Dates Problem Status W/U Status Risk Notes Problem Esophageal reflux (254927188) Esophageal reflux (530.81) Active confirmed Problem Constipation (564.00) Active confirmed Problem 069053556 Colon cancer screening (Z12.11) Active confirmed Problem 201965771 Gastroesophageal reflux disease without esophagitis (K21.9) Active confirmed Plan Of Treatment Future Test Test Name Order Date COLONOSCOPY 06/16/2012 COLONOSCOPY 02/28/2019 Insurance Providers Payer Name Payer Address Payer Phone Subscriber Number Group Number Insured Name Patient Relationship to Insured Coverage Start Date Coverage End Date MEDICAID OF [employer] [address] [place] [phone] [id number] LEENA SLATER Self - patient is the insured Medical (General) History Medical History History ICD Code colonoscopy 06-09-2007 colon polyps anemia hypertension hypoactive thyroid anxiety/depression diabetes mellitus type II peptic ulcer disease elevated cholesterol depression Surgical History Surgery Date(Month/Year) tubal ligation hysterectomy gastric bypass
== END 2025-02-28 08:10 | disposition home or self-care (01) ==
LOC: HO.HOSX 08:09
PROVIDERS: Visit Provider Orthopaedic Surgery
DX: Z13.89 Encounter for screening for other disorder (principal)

== ENCOUNTER 2025-04-10 10:36 | Outpatient (AMB) | payer OTHER, SELFPAY ==
--- NOTE | 2025-04-10 10:44 | A.OFFVIS_ITS ---
Vital Signs 04/10/25 10:46 Height 5 ft 1 in Weight 165 lb BMI 31.2 Intake Visit Reasons: OV- RT hip pain, last inj 11/27/24 Intake Note: Lotus is a 69 year old female who presents today as a follow up right hip pain, last injection 11/27/24. Patient states that the injection did give relief but wore off. Patient's daughter stated that she would like to get another inj ection. She continues with her home exercise program. Cancer Registry Coordinator Required: Yes Cancer Registry Coordinator Services: Cancer Registry Coordinator Offered & Declined Cancer Registry Coordinator Name: Tawny(Luis) - Daughter Allergies atropine () Allergy (Unknown, Verified 04/10/25 10:47) Hives belladonna alkaloids (From ) Allergy (Unknown, Verified 04/10/25 10:47) INVOLUNTARY SPASMS hyoscyamine () Allergy (Unknown, Verified 04/10/25 10:47) hives phenobarbital (From ) Allergy (Unknown, Verified 04/10/25 10:47) INVOLUNTARY SPASMS scopolamine () Allergy (Unknown, Verified 04/10/25 10:47) hives From Allergy (Unknown, Uncoded 11/27/24 11:36) INVOLUNTARY SPASMS Medication List - Last Reconciled 04/10/25 by Abdirahman Awad MD amitriptyline 25 mg PO BEDTIME atorvastatin 80 mg PO DAILY dulaglutide (Trulicity) mg subcut levothyroxine 100 mcg PO DAILY lisinopril 2.5 mg PO DAILY meclizine 25 mg PO TID PRN metformin ER 1,000 mg PO BID omeprazole 40 mg PO DAILY sertraline 100 mg PO BID sumatriptan succinate 50 mg PO 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 Physical Exam Vital Signs: BMI result Body Mass Index 31.2 Const Other: Well-nourished well-developed very friendly female awake alert and oriented x3 in no acute distress Extrem Other: Right hip examination shows full range of motion when compared to her left hip, mild discomfort with range of motion, tenderness over her bursa, no overlying skin lesions Office Procedures AMB Joint Injection/Aspiration Joint Injection/Aspiration Primary Site: other (Right hip greater trochanteric bursa) Prep: site was prepped using aseptic technique Injected: 40 mg of, DepoMedrol and 1% plain lidocaine Procedure: The patient tolerated the procedure well Coding 50217 - Large joint Procedure code (CPT) selection complete Assessment & Plan Assessment & Plan (1) Trochanteric bursitis of right hip: Code(s): M70.61 - Trochanteric bursitis, right hip Category: Medical Plan Ms. Garza presents with right hip pain due to greater trochanteric bursitis. The risks and benefits of a right hip cortisone injection were discussed at length with the patient. The patient wished to proceed. She tolerated the injection well. She will continue with her home exercise program. She will contact me prior to her follow-up appointment in 3 months should any questions or concerns arise. Feel free to call me at any time should questions regarding her orthopedic management arise. I spent 21 minutes in reviewing the patient's records and imaging studies, seeing the patient and documenting in the medical record. Orders: Orders AMB Joint Injection/Aspiration Today M70.61 - Trochanteric bursitis, right hip Coding Level of Care Code Est Pt Level 3 (45092) Complex EM visit Add On G2211 Diagnoses Trochanteric bursitis of right hip M70.61 CPT Codes Coding - Large joint: 15219 - Large joint ([id number])
[2025-04-10 10:46] VITALS: BMI 31.2
--- OUTSIDE RECORDS SUMMARY | 2025-04-10 13:10 | XMS_ITS | Encounter Summary ---
Author Organization [employer] Address [address] [place] [address] [address] [place] [address] Care Team Providers Care Customer Experience Manager Name Role Phone Lolis Gastelum MD Primary Care Provider [phone] Encounter Details Date Type Department Care Team (Late st Contact Info) Description 03/07/2023 Abstract [facility] MED[facility]INE [address] [place] [address] [phone] Lolis Gastelum MD [address] [place] [address] [phone] Social History Tobacco Use Types Packs/Day Years [...] Care Team (Late st Contact Info) Description 05/01/2025 9:30 AM EDT Office Visit [facility] [address] [place] [address] [phone] Lolis Gastelum MD [address] [place] [address] [phone] documented as of this encounter Procedures Procedure Name Priority Date/Time Associated Diagnosis Comments DIABETES EYE EXAM Routine 03/31/2022 documented in this encounter Results * Hm Diabetes Eye Exam (03/31/2022) Eye Exam Normal Normal [facility] Unassigned Pcp HEALTH MAINTENANCE Final Result documented in this encounter Visit Diagnoses Not on filedocumented in this encounter Additional Health Concerns Assessment Noted Time PHQ-9 Depression Total Score: 0 08/18/19 23 11:05 AM EST documented as of this encounter Care Teams Customer Experience Manager Relationship Specialty Start Date End Date Lolis Gastelum MD [address] [place] [address] PCP - General Family Medicine 08/01/18 documented as of this encounter
--- OUTSIDE RECORDS SUMMARY | 2025-04-10 13:10 | XMS_ITS | Encounter Summary ---
Author Organization [employer] Address [address] [facility] [address] [place] [address] Care Team Providers Care Chief Of Hospital Medicine Name Role Phone Lolis Gastelum MD Primary Care Provider [phone] Encounter Details Date Type Department Care Team ([facility] st Contact Info) Description 07/20/2023 Abstract [facility]INE [address] [place], [place] [phone] Lolis Gastelum MD [address] [place], [place] [phone] Social History Tobacco Use Types Packs/Day Years [...] Description 05/01/2025 9:30 AM EDT Office Visit [facility] [address] [place], [place] [phone] Lolis Gastelum MD [address] [place] [address] documented as of this encounter Procedures Procedure Name Priority Date/Time Associated Diagnosis Comments COLONOSCOPY Routine 06/10/2019 documented in this encounter Results * Colonoscopy (06/10/2019) Colonoscopy Normal Normal Lolis Gastelum MD HEALTH MAINTENANCE Edited Result - Final documented in this encounter Visit Diagnoses Not on filedocumented in this encounter Additional Health Concerns Assessment Noted Time PHQ-9 Depression Total Score: 0 08/18/19 23 11:05 AM EST documented as of this encounter Care Teams Chief Of Hospital Medicine Relationship Specialty Start Date End Date Lolis Gastelum MD [address] [place] [address] PCP - General Family Medicine 08/01/18 documented as of this encounter
--- OUTSIDE RECORDS SUMMARY | 2025-04-10 13:10 | XMS_ITS | Patient Health Record ---
Author Organization [facility] Address [address] [place] [address] Care Team Providers Care Hygiene Assistant Name Role Phone Oriana AZAR, Lolis Primary Care Provider Osito Edge Jr Unavailable [phone] Allergies Allergen (clinical drug ingredient) Drug/Non Drug [...] W/U Status Risk Notes Problem Esophageal reflux (186608130) Esophageal reflux (530.81) Active confirmed Problem Constipation (21036462) Constipation (564.00) Active confirmed Problem 786410518 Colon cancer screening (Z12.11) Active confirmed Problem 843110639 Gastroesophageal reflux disease without esophagitis (K21.9) Active confirmed Plan Of Treatment Future Test Test Name Order Date COLONOSCOPY 06/16/2012 COLONOSCOPY 02/28/2019 Insurance Providers Payer Name Payer Address Payer Phone Subscriber Number Group Number Insured Name Patient Relationship to Insured Coverage Start Date Coverage End Date [facility] [address] [place] [id number] LEENA SLATER Self - patient is the insured Medical (General) History Medical History History ICD Code colonoscopy 06-09-2007 colon polyps anemia hypertension hypoactive thyroid anxiety/depression diabetes mellitus type II peptic ulcer disease elevated cholesterol depression Surgical History Surgery Date(Month/Year) tubal ligation hysterectomy gastric bypass
--- OUTSIDE RECORDS SUMMARY | 2025-04-10 13:10 | XMS_ITS | Encounter Summary ---
Author Organization [employer] Address [address] [place] [address] [address] [place] [address] Care Team Providers Care Service Or Work Dispatcher Chief Name Role Phone Lolis Gastelum MD Primary Care Provider [phone] Encounter Details Date Type Department Care Team ([facility] st Contact Info) Description 08/18/2022 Abstract [facility] MEDICINE [address] [place], [place] [phone] Lolis Gastelum MD [address] [place], [place] [phone] Social History Tobacco Use Types Packs/Day Years [...] Description 05/01/2025 9:30 AM EDT Office Visit [facility] [address] [place], [place] [phone] Lolis Gastelum MD [address] [place] [address] documented as of this encounter Visit Diagnoses Not on filedocumented in this encounter Additional Health Concerns Assessment Noted Time PHQ-9 Depression Total Score: 0 08/18/19 23 11:05 AM EST documented as of this encounter Care Teams Service Or Work Dispatcher Chief Relationship Specialty Start Date End Date Lolis Gastelum MD [address] [place] [address] PCP - General Family Medicine 08/01/18 documented as of this encounter
--- OUTSIDE RECORDS SUMMARY | 2025-04-10 13:11 | XMS_ITS | Clinical Summary ---
Author Organization [facility] Address [address] [place] [address] 7[address] [place] [address] Care Team Providers Care Floor Runner Name Role Phone Lolis Gastelum MD Primary Care Provider [phone] Allergies Active Allergy Reactions Criticality Noted Date [...] before breakfast. 90 tablet 3 3 Active empagliflozin (Jardiance) 10 MGIndications:Seconds Inspector marilou nonintractable headache, unspecified headache type Take 1 tablet (10 mg) by mouth in the morning. 90 tablet 3 3 Active lisinopril 5 MG tabletIndications: Primary hypertension Take 1 tablet (5 mg) by mouth in the morning. 90 tablet 3 3 Active FreeStyle lancetsIndications :Chronic nonintractable headache, unspecified headache type 1 each by Other route 3 times daily. Check blood glucose 100 each 3 Active Alcohol Swabs (Alcohol Prep) padsIndications:Ch ronic nonintractable headache, unspecified headache type Check BG three times daily 100 each 11 3 Active dulaglutide (Trulicity) 1.5 MG/0.5ML solution pen-injector Inject 1.5 mg under the skin 1 (one) time per week. 4 each 11 4 Active Diclofenac Sodium 1 % gelIndications:Tro chanteric bursitis of right hip,Left wrist pain Apply to affected area once daily as needed for pain 200 g 2 4 Active topiramate (Topamax) 25 MG tablet Take 25 mg by mouth Once per day. Active glucose blood (FREESTYLE LITE) test stripIndications:C hronic nonintractable headache, unspecified headache type 1 each by Other route Once per day. 100 each 3 5 Active Active Problems Problem Noted Date Diagnosed Date Decreased renal function 02/14/2025 Assessment & Plan (02/14/2025 6:49 AM EDT): Most recent lab showed serum creatinine 1.04, BUN 15, EGFR 53 Possible mild dehydration Encouraged to drink plenty of fluid Continue checking BP at home. If recommend to be low BP, will consider adjusting her antihypertensive Mild cognitive impairment 02/14/2025 Assessment & Plan (02/14/2025 6:57 AM EDT): - ?pseudodementia - refer to another neurologist BPPV (benign paroxysmal positional vertigo) 01/29 Assessment & Plan (02/14/2025 7:00 AM EDT): Continue meclizine prn Palpitations 12/18/2024 Assessment & Plan (12/18/2024 3:35 [...] of right hip 08/22/2022 Assessment & Plan (02/14/2025 6:52 AM EDT): - apply diclofenac topical and take APAP 1g q8h prn - thigh muscle exercise - evaluated by [facility], received steroid injection in October 2024 Assessment & Plan (04/10/2024 2:00 PM EDT): - apply diclofenac topical and take APAP 1g q8h prn - thigh muscle exercise - evaluated by [facility], received steroid injection Assessment & Plan (07/16/2023 5:18 AM EST): - apply diclofenac topical and take APAP 1g q8h prn - thigh muscle exercise - evaluated by [facility], received steroid [...] Chronic headache disorder 02/24/2017 Assessment & Plan (02/03/2025 8:17 AM EDT): With dizziness -Normal MRI in Apr 2016 -Possibly associated with migraine -Continue current treatment for migraine -carotid US on 05/28/21 showed right side minimal stenosis and left side was normal -continue amitriptyline 25 mg at bedtime -patient is interested in referral to a neurologist, will make a referral Assessment & Plan (04/10/2024 1:58 PM EDT): [...] mg qhs Migraine 02/24/2017 Assessment & Plan (02/14/2025 6:59 AM EDT): -with dizziness -Imaging study: MRI normal in Apr 2016 - previously on amitriptyline, which was discontinued by her neurologist in Jun 2024 -continue topiramate 25 mg qhs -continue sumatriptan and Excedrin migraine prn -improve sleep hygiene -avoid triggers Assessment & Plan (04/15/2024 6:26 PM EDT): [...] of both knees 02/09/2016 Assessment & Plan (02/14/2025 6:52 AM EDT): - following with [facility] orthopedist, received cortisone injection to left knee in Jun 2024 - continue staying physically active - take acetaminophen prn Assessment & Plan (04/10/2024 2:00 PM EDT): - seen by orthopedist on 03/27/24, received cortisone injection to left knee - continue staying physically active - take acetaminophen prn Assessment & Plan (02/26/2023 5:12 PM EDT): - hip pain may be referred pain from knee Lightheadedness 01/20/2016 06/29/2023 Assessment & Plan (02/14/2025 6:53 AM EDT): - monitor BP and BG at home - consider adjusting medication to keep her BP and BG in normal range Hypertension 01/28/2015 Assessment & Plan (02/03/2025 8:15 AM EDT): -Goal BP < 140/90 per JNC-8, < 130/80 per ACC/AHA guideline -BP at goal today -Continue working on lifestyle modification and medication adherence. -Continue lisinopril 5 mg daily. Assessment & Plan (04/10/2024 1:46 PM EDT): [...] adenoma of colon 12/19/2013 Assessment & Plan (02/03/2025 8:16 AM EDT): - followed by Dr. Truong - tubular adenoma on 01/13/13 - tubular adenoma on 06/20/19 Assessment & Plan (07/16/2023 5:32 AM EST): [...] colonoscopy Depressive disorder 04/04/2012 Assessment & Plan (02/03/2025 8:16 AM EDT): - continue current medications Assessment & Plan (02/26/2023 5:15 PM EDT): - continue current medications Diabetes mellitus, type 2 04/04/2012 Assessment & Plan (02/03/2025 8:19 AM EDT): - HgbA1C 7.3% on 01/31/25, the same on 04/10/24 - Continue Jardiance 10mg daily - Continue metformin 1,000mg BID - Continue Trulicity 1.5 mg weekly, patient was advised to check dosage of her current trulicity - Continue lifestyle modification and SMBG. -Last eye exam: 05/03/23 Dr. Garrett. No diabetic retinopathy. -Last foot exam: 12/13/23 -Last microalbumin test: 12/19/24 UACR 16.6 -Last lipid profile: 12/19/24 TC 175; TG 93; LDL 88; HDL 69 -Last dental exam: 01/27/15 Immunizations: Up to date per pt (received at [facility]) Follow up in 3-4 mo. Assessment & Plan (04/10/2024 2:01 PM EDT): [...] Up to date per pt (received at [facility]) Follow up in 3-4 mo. Assessment [...] Up to date per pt (received at [facility]) Follow up in 3-4 mo. Assessment [...] Up to date per pt (received at [facility]) Follow up in 3-4 mo. Assessment [...] Up to date per pt (received at [facility]) Follow up in 3-4 mo. [...] Up to date per pt (received at [facility]) Follow up in 3 mo. Dyslipidemia 04/04/2012 Assessment & Plan (02/03/2025 8:19 AM EDT): - current medication: Atorvastatin 80 mg at bedtime - Last lipid profile: 12/19/24 TC 175; TG 93; LDL 88; HDL 69 - continue working on lifestyle modification - continue high-intensity statin therapy Assessment & Plan (04/10/2024 1:47 PM EDT): [...] statin therapy Hypothyroidism 04/04/2012 Assessment & Plan (02/03/2025 8:16 AM EDT): - current replacement: levothyroxine 100 mcg daily - Last TSH 2.06 in Aug 2023 - Continue current treatment plan. Assessment & Plan (04/15/2024 6:27 PM EDT): [...] Encounters Date Type Department Care Team Description 03/08/[address] [address] Lolis Gastelum MD Durable Medical Equipment (DME Order: Shower Bench) 02/14/2025 Telephone [facility] [address] [place] [address] Lolis Gastelum MD 01/31/2025 10:30 AM EDT Office Visit [address] [address] Lolis Gastelum MD Primary hypertension (Primary Dx); Dyslipidemia; Vitamin D deficiency; Acquired hypothyroidism; Type 2 diabetes mellitus without complication, without long-term current use of insulin ([facility]); Tubular adenoma of colon; Depressive disorder; Chronic nonintractable headache, unspecified headache type; Migraine without status migrainosus, not intractable, unspecified migraine type; Decreased renal function; Osteoporosis screening; Postmenopausal; Dietary counseling; Exercise counseling; Overweight; Primary osteoarthritis of both knees; Trochanteric bursitis of right hip; Lightheadedness; Mild cognitive impairment; Benign paroxysmal positional vertigo, unspecified laterality 01/31/2025 Travel 01/30/[address] [address] Lolis Gastelum MD CHART PREP 01/25/2025 Patient Outreach [facility] [address] [place] [address] Lolis Gastelum MD Pre-visit Planning ([facility] unable to reach [facility] ) 01/18/2025 Orders Only [address] [address] Melinda Brito MD from Last 3 Months Immunizations Immunization [...] is your housing situation today? I have stephaniematthias rubio 12/02/[address] you [...] Sign Reading Time Taken Comments Blood Pressure 118/82 02/03/2025 12:09 PM EDT Pulse 63 01/31/2025 10:43 AM EDT Temperature 36.1 C (96.9 F) 01/31/2025 10:43 AM EDT Respiratory Rate 20 01/31/2025 10:43 AM EDT Oxygen Saturation 99% 01/31/2025 10:43 AM EDT Inhaled Oxygen Concentration - - Weight 74.4 kg (164 lb) 01/31/2025 10:43 AM EDT Height 160 cm (5' 3 ) 01/31/2025 10:43 AM EDT Body Mass Index 29.05 01/31/2025 10:43 AM EDT Plan of Treatment Upcoming Encounters Date Type Department Care Team (Late st Contact Info) Description 05/01/2025 9:30 AM EDT Office Visit [facility] [address] [place] [address] Lolis Gastelum MD [address] [place] [address] Health Maintenance Due Date Last Done Comments CT Colonography 1955 FIT DNA/Cologuard 1955 FIT 1955 FOBT 1955 Sigmoidoscopy 1955 Alcohol/Substance Use Screening 1968 Hepatitis C Screening 1974 Zoster Vaccines (2 of 3) 09/23/2017 07/29/2017 Eye Exam 03/31/2023 03/31/2022 Colonoscopy 06/10/2024 06/10/2019 Colorectal Cancer Screening 06/10/2024 SDOH Screening 12/01/2024 12/02/2023 Depression Screening 12/12/2024 12/13/2023, 12/13/19 24 Diabetes: Foot Exam 12/12/2024 12/13/2023 COVID-19 Vaccine ( season) 2025 08/23/2023, 03/09/2022, 05/01/2021, Additional history exists Influenza Vaccine (#1) 2025 4, 07/04/2023, 06/14/2019, Additional history exists Diabetes: Hemoglobin A1C 05/03/2025 025, 04/10/2024, 12/13/2023, Additional history exists Mammogram 11/02/2025 11/02/2024, 07/02, 07/09/2022, Additional history exists Diabetes: Urine Protein Screening 12/19/2025 12/19/2024, 08/04/2023, 06/14/2022, Additional history exists Lipid Panel 12/19/2025 12/19/2024, 10/2023, 06/14/2022, Additional history exists Tobacco Screening 02/14/2026 02/14/2025 DTaP/Tdap/Td Vaccines (3 - Td or Tdap) 05/25/2032 05/25/2022, 04/04/2012, 09/01/2009, Additional history exists Hepatitis B Vaccines Completed 06/20/2013, 01/29/2013, 12/21/2012 RSV Patients and Patients Aged 60 years or older Completed 08/26/2023 Pneumococcal Vaccine: 50+ Years Completed 12/13/2023, 04/17/2008, 10/06/2000 HIB Vaccines Aged Out No longer eligi [...] Comments POCT GLYCOSYLATED HEMOGLOBIN (HGB A1C) Routine 01/31/2025 10:45 AM EDT Type 2 diabetes mellitus without complication, without long-term current use of insulin ([facility]) POCT GLUCOSE Routine 01/31/2025 10:45 AM EDT Type 2 diabetes mellitus without complication, without long-term current use of insulin ([facility]) TSH Routine 01/18/2025 9:20 AM EDT CBC WITH AUTO DIFFERENTIAL Routine 01/18/2025 9:20 AM EDT BASIC METABOLIC PANEL Routine 01/18/2025 9:20 AM EDT Palpitations LIPID PANEL WITH REFLEX TO DIRECT LDL Routine 12/19/2024 11:00 AM EDT Type 2 diabetes mellitus without complication, without long-term current use of insulin ([facility]) ALBUMIN, RANDOM URINE W/CREATININE Routine 12/19/2024 10:57 AM EDT Type 2 diabetes mellitus without complication, without long-term current use of insulin ([facility]) BI MAMMOGRAM SCREENING TOMOSYNTHESIS BILATERAL Routine 11/02/2024 9:16 AM EDT DIABETES EYE EXAM Routine 03/31/2022 COLONOSCOPY Routine 06/10/2019 from Last 3 Months or Most Recently Relevant to Health Maintenance Results * (ABNORMAL) POCT glycosylated hemoglobin (Hgb A1c) (01/31/2025 10:45 AM EDT) Hemoglobin A1C 7.3(A) 4.0 - 5.7 % QC Media Lot # [id number] Lot# Expiration Date [id number] Blood Capillary blood specimen / Unknown 01/31/2025 10:45 AM EDT Lolis Gastelum MD POINT OF CARE TEST ENTER/EDIT OR DERABLES Final Result * POCT glucose manually resulted (01/31/2025 10:45 AM EDT) Glucose Blood, POC 122 60 - 200 mg/dL QC Media Lot # [id number] Lot# Expiration Date 363 Blood Capillary blood specimen / Unknown 01/31/2025 10:45 AM EDT Lolis Gastelum MD POINT OF CARE TEST ENTER/EDIT OR DERABLES Final Result * (ABNORMAL) CBC auto differential (01/18/2025 9:20 AM EDT) [facility] White Blood Count 6.2 4.8 - 10.8 X10*3/uL [facility] Red Blood Count 4.66 4.20 - 5.50 X10*6/uL [facility] Hemoglobin 11.8(L) 12.0 - 16.0 g/dl [facility] Hematocrit 37.0 37.0 - 47.0 % [facility] Mean Corpuscular Volume 79.4(L) 80.0 - 98.0 fL [facility] Mean Corpuscular Hemoglobin 25.3(L) 27.0 - 33.0 pg [facility] Mean Corpuscular HGB Conc 31.9 31.0 - 35.0 g/dl [facility] Red Cell Distribution Width 14.4 11.0 - 16.0 % [facility] Platelet Count 222 160 - 400 X10*3/uL [facility] Mean Platelet Volume 9.9 9.4 - 12.3 fL [facility] Neutrophils Percent Auto 53.6 45 - 73 % [facility] Imm Gran Pct Auto 0.3 0.0 - 0.4 % [facility] Lymphocytes Percent Auto 37.1 20 - 40 % [facility] Monocytes Percent Auto 7.2 2 - 11 % [facility] Eosinophils Percent Auto 1.3 0 - 4 % [facility] Basophils Percent Auto 0.5 0 - 2 % [facility] NRBC Pct Auto 0.0 0.0 - 0.2 /100WBC [facility] Neutrophils Absolute Auto 3.3 2.0 - 8.3 x10*3/uL [facility] Imm Gran Abs Auto 0.02 0.00 - 0.03 X10*3/uL [facility] Lymphocytes Absolute Auto 2.3 1.2 - 4.9 X10*3/uL [facility] Monocytes Absolute Auto 0.5 0.1 - 1.2 X10*3/uL [facility] Eosinophils Absolute Auto 0.1 0.0 - 0.4 X10*3/uL [facility] Basophils Absolute Auto 0.0 0.0 - 0.2 X10*3/uL [facility] NRBC Abs Auto 0.000 0.0 - 0.012 X10*3/uL [facility] 01/18/2025 9:20 AM EDT 01/18/2025 9:57 AM EDT Melinda Brito MD LAB BLOOD ORDERABLES Final Result Performing Organization Address City/[facility]/ZIP Co de Phone Number [facility] [address] [place] [phone] * TSH (01/18/2025 9:20 AM EDT) Pathologist [facility] Thyroid Stimulating Hormone 1.69 0.32 - 4.0 uIU/mL [facility] Comment:TSH 3rd Generation ( [facility]) 01/18/2025 9:20 AM EDT 01/18/2025 10:02 AM EDT Melinda Brito MD LAB BLOOD ORDERABLES Final Result Performing Organization Address City/[facility]/ZIP Co de Phone Number [facility] [address] [place] [phone] * (ABNORMAL) Basic Metabolic Panel (01/18/2025 9:20 AM EDT) Pathologist [facility] Sodium 139 135 - 145 mmol/L [facility] Potassium 3.9 3.3 - 5.1 mmol/L [facility] Chloride 108 96 - 108 mmol/L [facility] Carbon Dioxide 27 22 - 29 mmol/L [facility] Anion Gap 8(L) 12 - 20 [facility] Urea Nitrogen (BUN) 15 9 - 16 mg/dL [facility] Creatinine, Serum 1.04 0.5 - 1.4 mg/dL [facility] Estimated Glomerular Filt Rate 53 [facility] Comment:Chronic Kidney Disea se: Estimated GFR < 60 mL/min/1.77u8Obotot Kidney Disease: Estimated GFR < 15 mL/min/1.73m2 Glucose 123(H) 60 - 115 mg/dL [facility] Calcium 9.0 8.4 - 10.2 mg/dL [facility] Blood Venous blood specimen / Unknown 01/18/2025 9:20 AM EDT 01/18/2025 10:02 AM EDT us Melinda Brito MD LAB BLOOD ORDERABLES Final Result [facility] [address] [place] [phone] * Lipid Panel with Reflex to Direct LDL (12/19/2024 11:00 AM EDT) Triglycerides 93 <150 mg/dL [facility] Comment:Desirable Triglyceri de: less than 150 mg/dLBorderline High Triglyceride 150-199 mg/dLHigh Triglyceride: 200-499 mg/dLVery High Triglyceride: greater than or equal to 5OO mg/dL Cholesterol 175 <200 mg/dL [facility] Comment:Desirable Cholestero l: less than 200 mg/dLBorderline High Cholesterol: 200-239 mg/dLHigh Cholesterol: greater than 239 mg/dL LDL Cholesterol Calculated 88 <100 mg/dL [facility] Comment:Desirable LDL: less than 100 mg/dLNear Optimal/Above Optimal LDL: 110- 129 mg/dLBorderline High LDL: 130-159 mg/dLHigh LDL: 160-189 mg/dLVery High LDL: greater than or equal to 190 mg/dL HDL Cholesterol 69 >40 mg/dL [facility] Comment:Desirable HDL: great er than 40 mg/dL Note: This HDL assay may give artificially low results in patients with liver disease. Blood 12/19/2024 11:0 0 AM EDT 12/19/2024 11:00 AM EDT Lolis Gastelum MD LAB BLOOD ORDERABLES Final Resul t Performing Organization Address [facility] de Phone Number [facility] [address] [place] [phone] * Albumin, Random Urine W/Creatinine (12/19/2024 10:57 AM EDT) Creatinine, Urine 167.77 mg/dL [facility] Microalbumin Urine 28.0 mg/L [facility] Microalbum Creatinine Ratio Ur 16.6 <30 ug/mg cr [facility] Comment:Albumin/Creatinine R atio Reference Ranges: Normal: < 30 ug/mg creatinine Microalbuminuria: 30 - 300 ug/mg creatinineClinical Albuminuria: > 300 ug/mg creatinine Urine 12/19/2024 10:5 7 AM EDT 12/19/2024 11:30 AM EDT us Lolis Gastelum MD LAB URINE ORDERABLES Final Resul t Performing Organization Address [facility] de Phone Number [facility] [address] [place] [phone] * BI Mammogram Screening Tomosynthesis Bilateral (11/02/2024 9:16 AM EDT) Anatomical Region Laterality Modality Breast Bilateral Mammography 11/02/2024 9:16 AM EDT Narrative 11/07/2024 1:06 PM EDT [facility] [address] [place] [address] Mammography Report Signed Patient: Lotus Garza MR#: [id number] 4 : 1955 Acct:[id number] Age/Sex: 68 / F ADM Date: 11/02/24 Loc: HO.MAMMO Attending Dr: Lolis Gastelum MD Ordering Physician: Lolis Gastelum MD Results: 1Negative Date of Service: 11/02/24 Follow Up: 1 Year From Orig ina Mammogram Procedure(s): MM tomosynthesis screening BI Accession Number(s): [id number] cc: Lolis Gastelum MD EXAMINATION: MM SCREENING [...] 11/07/24 1303 DD/ 0916 TD/TT: 11/02/24 0933 Reinforcing Steel Worker Wire Mesh: Procedure Note Donotuseinterpreter, Image - 11/07/2024 [facility] [address] [place], [place] [address] Mammography Report Signed Patient: Lotus Garza#: [id number] 4 : 7Acct:[id number] Age/Sex: 68 / FADM Date: 11/02/24 Loc: LANDR[facility] Attending Dr: Lolis Gastelum MD Ordering Physician: Lolis Gastelum MDResults: 1Negative Date of Service: 11/02/24Follow Up: 1 Year From Orig ina Mammogram Procedure(s): MM tomosynthesis screening BI Accession Number(s): [id number] cc: Lolis Gastelum MD EXAMINATION: MM SCREENING [...] 11/07/24 1303 DD/ 0916 TD/TT: 11/02/24 0933 Reinforcing Steel Worker Wire Mesh: Lolis Gastelum MD IMG BI PROCEDURES Final Result * Diabetes Eye Exam (03/31/2022) Eye Exam Normal Normal Just[facility] Unassigned Pcp HEALTH MAINTENANCE Final Result * Colonoscopy (06/10/2019) Colonoscopy Normal Normal us Lolis Gastelum MD HEALTH MAINTENANCE Edited Result - Final from Last 3 Months or Most Recently Relevant to Health Maintenance Insurance [facility] STANDARD [facility] DUAL COMPLETE Care Teams Floor Runner Relationship Specialty Start Date End Date Lolis Gastelum MD [address] [place] [address] PCP - General Family Medicine 08/01/18
== END 2025-04-10 11:02 | disposition home or self-care (01) ==
PROVIDERS: PCP Family Medicine; Visit Provider Orthopaedic Surgery
DX: M70.61 Trochanteric bursitis, right hip (principal)
CPT/HCPCS: 20610; 99213

== ENCOUNTER → 2025-04-10 10:36 | Outpatient (BNVA) | payer OTHER, SELFPAY | PROVIDERS: PCP Family Medicine; Visit Provider Orthopaedic Surgery | DX: M70.61 Trochanteric bursitis, right hip (principal) | CPT/HCPCS: 20610; 99212; J1010; J2003 ==

== ENCOUNTER → 2025-05-09 09:15 | Outpatient (BNV) | payer OTHER, SELFPAY | PROVIDERS: PCP Family Medicine; Visit Provider Radiology Diagnostic Radiology | DX: E28.39 Other primary ovarian failure (principal) | CPT/HCPCS: 77080 ==

== ENCOUNTER 2025-05-09 09:34 | Outpatient (REF) | payer OTHER, SELFPAY ==
--- NOTE | ~2025-05-09 | MM_ITS ---
EXAMINATION: DXA BONE DENSITY AXIAL HISTORY: postmenopausal, osteoporosis screening TECHNIQUE: [facility] Dual energy absorptiometry (DEXA) of the lumbar spine, total left hip, and femoral neck was performed. COMPARISON: Comparison is made with the prior examination dated 10/19/2011. FINDINGS: The bone mineral density of the lumbar spine is 0.882 g/cm2, corresponding to a T-score of -2.5, and a Z-score of -1.2. This is indicative of osteoporosis. This represents a BMD change of -6.4% compared to the prior exam. This is statistically significant. The bone mineral density of the left total hip is 0.774 g/cm2, corresponding to a T-score of -1.9, and a Z-score of -0.7. This is indicative of osteopenia. This represents a BMD change of -22.5% compared to the prior exam. This is statistically significant. The bone mineral density of the left femoral neck is 0.741 g/cm2, corresponding to a T-score of -2.1, and a Z-score of -0.7. This is indicative of osteopenia. This represents a BMD change of -22.7% compared to the prior exam. FRACTURE RISK: The FRAX index suggests a ten year probability of major osteoporotic fracture of 11.0%, and of hip fracture 2.4%. MM/XR DEXA axial skeleton IMPRESSION: Based on bone mineral density, and according to World Health Organization (WHO) criteria, the diagnosis is consistent with osteoporosis. Statistically, 68% of repeat scans fall within 1 SD (+/- 0.010 g/cm2 for AP spine L1-L4) and 1 SD (+/- 0.012 g/cm2 for femur total) FRAX is a trademark of the [employer], a World Health Organization (WHO) Collaborating Center. Electronically signed by: Eddy Cm MD 05/09/2025 09:59 AM EDT
== END 2025-05-09 09:35 | disposition home or self-care (01) ==
LOC: HO.MAMMO 09:34
PROVIDERS: PCP Family Medicine; Visit Provider Family Medicine
DX: Z13.820 Encounter for screening for osteoporosis (principal); Z78.0 Asymptomatic menopausal state
CPT/HCPCS: 77080

== ENCOUNTER 2025-05-21 10:56 | Outpatient (AMB) | payer OTHER, SELFPAY ==
[2025-05-21 10:58] VITALS: BP 118/64; PULSE 69; BMI 31.7
--- NOTE | 2025-05-21 10:58 | MHC.OFFVIS ---
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 Assistant Public Defender Required: Yes Assistant Public Defender Services: Assistant Public Defender Offered & Declined Accompanied by: Daughter Allergies atropine () Allergy (Unknown, Verified 05/21/25 11:07) Hives belladonna alkaloids (From ) Allergy (Unknown, Verified 05/21/25 11:07) INVOLUNTARY SPASMS hyoscyamine () Allergy (Unknown, Verified 05/21/25 11:07) hives phenobarbital (From ) Allergy (Unknown, Verified 05/21/25 11:07) INVOLUNTARY SPASMS scopolamine () Allergy (Unknown, Verified 05/21/25 11:07) hives From Allergy (Unknown, Uncoded 11/27/24 11:36) INVOLUNTARY SPASMS Medication List - Last Reconciled 05/21/25 by Brijesh Rod MD amitriptyline 25 mg PO BEDTIME atorvastatin 80 mg PO DAILY dulaglutide (Trulicity) mg subcut levothyroxine 100 mcg PO DAILY lisinopril 2.5 mg PO DAILY meclizine 25 mg PO TID PRN metformin ER 1,000 mg PO BID omeprazole 40 mg PO DAILY sertraline 100 mg PO BID sumatriptan succinate 50 mg PO HPI Comments Details: The patient is a 69-year-old female presenting with palpitations and chest pain. The palpitations have been occurring for the past 8 to 9 months, starting in August, and occur approximately twice a week. They are sometimes associated with anxiety, but the patient has no history of heart attacks or stents. The chest pain is severe, causing difficulty breathing and panic, and occurs both at rest and during activity. The patient has not been hospitalized for these symptoms but has sought medical evaluation due to their severity. The patient has a history of hypertension, managed with a reduced dose of lisinopril to prevent hypotension and protect renal function due to diabetes. The patient has type 2 diabetes mellitus and a family history of heart problems and hypertension. She does not smoke or consume alcohol. The patient experiences migraine headaches and takes sumatriptan daily, but has been advised to avoid it until cardiac evaluation is complete. [facility] Medical History (Updated 05/21/25 @ 11:43 by Brijesh Rod MD) Other and unspecified hyperlipidemia Type 2 diabetes mellitus with unspecified complications Surgical History (Updated 05/21/25 @ 11:04 by Ceasar Gonzalez CNA) H/O tubal ligation H/O: hysterectomy H/O gastric bypass Family History (Updated 05/21/25 @ 11:06 by Ceasar Gonzalez CNA) Father Heart problem History of high blood pressure Mother Heart problem History of high blood pressure Heart block Social History (Updated 05/21/25 @ 11:25 by Brijesh Rod MD) Alcohol intake: never Patient Tobacco Use Status: Never used Tobacco Current occupational status: disabled 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 Review of Systems Const Denies daytime sleepiness, Denies difficulty sleeping, Denies snoring, Denies stops breathing during sleep and Denies weakness Card Denies chest pain, Denies rapid heart rate, Denies irregular heart rhythm, Denies claudication, Denies leg edema, Denies lightheadedness, Reports palpitations, Denies dyspnea, Denies dyspnea on exertion, Denies orthopnea, Denies paroxysmal nocturnal dyspnea and Denies slow heart rate Resp Denies cough, Denies dyspnea, Denies dyspnea on exertion and Denies snoring GI Reports no additional complaints, Denies hematochezia, Denies change in stool character and Denies dyspepsia Musc Denies abnormal gait, Denies muscle weakness and Denies numbness Neuro Denies abnormal gait, Denies numbness and Denies weakness Endo Reports palpitations Physical Exam Vital Signs: Last Vital Signs Pulse 69 05/21/25 10:58 BP 118/64 05/21/25 10:58 BMI result Body Mass Index 31.7 Const General: comfortable and no acute distress Orientation/consciousness: patient oriented x3 HEENT Other: Unremarkable Head: Yes normal to inspection Neck Neck: Yes normal visual inspection Chest Chest palpation & inspection: normal inspection of the chest Resp Auscultation: clear to auscultation bilaterally Cardio Palpation: normal PMI Heart sounds: S1 normal heart sound present, S2 normal heart sound present, no gallops, Murmur heart sound present systolic II/ and at the right sternal border and no rubs GI Palpation (GI): Soft to palpation Back/Spine/Pelvis Other: unremarkable Skin General skin exam: no rashes or lesions noted Neuro General: patient oriented x3 Extrem General: Yes normal to inspection Psych Mental Status: mental status grossly normal Office Procedures EKG Details: EKG with sinus rhythm at 69/Min; no ischemic changes; [place] [id number], Complete Assessment & Plan Assessment & Plan (1) Heart palpitations: Code(s): R00.2 - Palpitations Category: Medical Plan: Possible atrial arrhythmias like atrial fibrillation. Obtain 2 week Holter monitor. (2) Precordial chest pain: Code(s): R07.2 - Precordial pain Category: Medical Plan: Somewhat atypical for angina. With her risk factors and age, recommend further workup with an echocardiogram and stress test. Plan Discussion Notes I discussed with the patient the need for a treadmill stress test and echocardiogram to evaluate her chest pain and potential cardiac issues. We also talked about using a two-week Holter monitor to assess her palpitations. I advised her to avoid using sumatriptan until her cardiac evaluation is complete due to potential side effects. Patient was informed and verbally consented to the use of an ambient scribe for clinic note documentation during this visit. Orders: Orders CA stress test Today R07.2 - Precordial pain CA echo transthoracic complete Today R07.2 - Precordial pain NM cardiolite stress test Today R07.2 - Precordial pain ECG 14 day holter monitor Today R00.2 - Palpitations Patient Instructions: - Use the two-week Holter monitor as instructed to record palpitations. - Attend scheduled treadmill stress test and echocardiogram appointments. - Avoid using sumatriptan until cardiac evaluation is complete. Coding Level of Care Code New Pt Level 4 (96725) Complex EM visit Add On G2211 Diagnoses Heart palpitations R00.2 Precordial chest pain R07.2 CPT Codes EKG - CPT: 86096-[id number], Complete ([id number])
--- OUTSIDE RECORDS SUMMARY | 2025-05-21 13:42 | XMS_ITS | Encounter Summary ---
Author Organization [employer] Address [address] [place] [address] [address] [place] [address] Care Team Providers Care Nurse'S Aides Teacher Name Role Phone Lolis Gastelum MD Primary Care Provider [phone] Reason for Referral * Consultation (Routine) - Authorized Specialty Diagnoses / Procedures Referred By Contac t Referred To Contact Endocrinology Diagnoses Other osteoporosis without current pathological fracture Lolis Gastelum MD [address] [place] [address] Phone: tel: fax: [facility] Referral ID Status Reason Start Date Expiration Date Visits Requested Visits Authorized [id number] Authorized Specialty Services Required 05/09/2025 05/09/2026 1 1 Encounter Details Date Type Department Care Team (Late st Contact Info) Description 05/09/2025 Orders Only [facility]INE [address] [place], [place] [phone] Lolis Gastelum MD [address], [place] [phone] Other osteoporosis without current pathological fracture (Primary Dx) Social History Tobacco Use Types Packs/Day Years Used Date Smoking Tobacco: Former Cigarettes Passive Smoke Exposure: Never Smokeless Tobacco: Never Depression Answer Date Recorded Patient Health Questionnaire-9 Score 15 05/01/2025 Patient Health Questionnaire-9 Score 15 05/01/2025 Last PHQ-9: Questionnaire Data Not on file 1 Housing Stability Answer Date Recorded What is your housing situation today? I have stephanie rubio 05/01/[address] you li ve. Do you have problems with any of the following? None of the above 05/01/2025 Food Insecurity Answer Date Recorded Within the past 12 months, y ou worried that your food would run out before you got money to buy more: Never True 05/01/2025 Within the past 12 months,th e food you bought just didn't last and you didn't have enough money to get more: Never True 08/2024 Transportation Answer Date Recorded In the past 12 months, has l ack of transportation kept you from medical appts, meetings, work or from getting things needed for daily living? No 05/01/2025 Utilities Answer Date Recorded In the past 12 months, has t he electric, gas, oil or water company threatened to shut off services in your home? No 05/01/2025 Depression Answer Date Recorded Patient Health Questionnaire-2 Score 4 05/01/2025 Internet Access Answer Date Recorded Internet Access Q1 Yes 05/01/2025 Internet Access Q2 Not on file 05/01/2025 Comments Unknown Sex and Gender Information Value Date Recorded Sex Assigned at Female 05/31/2022 10:14 AM EDT Legal Sex Female 10:14 AM EDT Gender Identity Female 05/31/2022 10:14 AM EDT Sexual Orientation Choose not to disclose 2021 10:14 AM EDT documented as of this encounter Miscellaneous Notes * Assessment & Plan Note - Lolis Gastelum MD - 05/09/2025 12:23 PM EDTAssociated Problem(s): Osteoporosis - multifactorial: hypothyroidism - DEXA in May 2025: Lumbar spine T-score -2.5; femoral neck T-score -2..1 - patient takes levothyroxine and taking alendronate is cumbersome; patient prefers injectable medication - refer to endocrinology - maintain adequate calcium and vitamin D intake - weight-bearing exercise documented in this encounter Plan of Treatment Scheduled Referrals Name Type Priority Associated Diagnoses Orde r Schedule Referral to Endocrinology Outpatient Referral Routine Other osteoporosis without current pathological fracture Expected: 05/09/2025 (Approximate), Expires: 05/09/2026 documented as of this encounter Visit Diagnoses Diagnosis Other osteoporosis without current pathological fracture- Primary documented in this encounter Additional Health Concerns Assessment Noted Time PHQ-9 Depression Total Score: 15 025 10:38 AM EDT documented as of this encounter Care Teams Nurse'S Aides Teacher Relationship Specialty Start Date End Date Lolis Gastelum MD [address] [place] [address] PCP - General Family Medicine 08/01/18 documented as of this encounter
--- OUTSIDE RECORDS SUMMARY | 2025-05-21 13:42 | XMS_ITS | Encounter Summary ---
Author Organization [employer] Address [address] [place] [address] [address] [place] [address] Care Team Providers Care Drain Technician Name Role Phone Lolis Gastelum MD Primary Care Provider Encounter Details Date Type Department Care Team ([facility] st Contact Info) Description 03/07/2023 Abstract [facility] [address] [place], [place] [phone] Lolis Gastelum MD [address] [place], [place] [phone] Social History Tobacco Use Types Packs/Day Years [...] Exam (03/31/2022) Eye Exam Normal Normal Result [facility] [facility] Pcp HEALTH MAINTENANCE Final Result documented in this encounter Visit Diagnoses Not on filedocumented in this encounter Additional Health Concerns Assessment Noted Time PHQ-9 Depression Total Score: 0 08/18/19 23 11:05 AM EST documented as of this encounter Care Teams Drain Technician Relationship Specialty Start Date End Date Lolis Gastelum MD [address] [place] [address] PCP - General Family Medicine 08/01/18 documented as of this encounter
--- OUTSIDE RECORDS SUMMARY | 2025-05-21 13:42 | XMS_ITS | Encounter Summary ---
Author Organization [employer] Address [address] [facility] [address] [place] [address] Care Team Providers Care Biological Aide Name Role Phone Lolis Gastelum MD Primary Care Provider [phone] Encounter Details Date Type Department Care Team ([facility] st Contact Info) Description 08/18/2022 Abstract [facility] MED[facility] [address] [place], [place] [phone] Lolis Gastelum MD [address] [place], [place] [phone] Social History Tobacco Use Types Packs/Day Years [...] documented as of this encounter Care Teams Biological Aide Relationship Specialty Start Date End Date Lolis Gastelum MD [address] [place] [address] PCP - General Family Medicine 08/01/18 documented as of this encounter
--- OUTSIDE RECORDS SUMMARY | 2025-05-21 13:42 | XMS_ITS | Clinical Summary ---
Author Organization [employer] Address [address] [facility] [address] [place] [address] Care Team Providers Care Trim And Burr Operator Name Role Phone Lolis Gastelum MD Primary Care Provider [phone] Allergies Active Allergy Reactions Criticality Noted Date Comments Atropine Hives Hyoscyamine Unknown Phenobarbital Unknown Scopolamine Unknown Medications acetaminophen (Tylenol Extra Strength) 500 MG tabletIndications: Trochanteric bursitis of right hip,Left wrist pain Take 2 tablets (1,000 mg) by mouth every 8 (eight) hours if needed for mild pain, moderate pain, headaches or fever. 90 tablet 1 02/24/20 23 Active atorvastatin (Lipitor) 80 MG tabletIndications: Dyslipidemia take 1 tablet (80MG) by oral route every day 90 tablet 3 02/24/20 23 Active meclizine (Antivert) 25 MG tabletIndications: Benign paroxysmal positional vertigo, unspecified laterality take 1 tablet by oral route 3 times every day as needed for dizziness 30 tablet 2 02/24/20 23 Active metFORMIN XR (Glucophage-XR) 500 MG 24 hr tabletIndications: Type 2 diabetes mellitus without complication, without long-term current use of insulin (HCC) take 2 tablet by oral route 2 times every day with meal 360 tablet 3 02/24/20 23 Active omeprazole (PriLOSEC) [address] capsule take 1 capsule (40MG) by oral route every day before a meal 90 capsule 3 02/24/20 23 Active sertraline (Zoloft) 100 MG tabletIndications: Depressive disorder take 2 tablet (200MG) by oral route every day 180 tablet 3 02/24/20 23 Active SUMAtriptan (Imitrex) 50 MG tabletIndications: Migraine without status migrainosus, not intractable, unspecified migraine type take 1 tablet by oral route once after onset of migraine; may repeat after 2 hours if you still have headache or headache returns 9 tablet 02/24/20 Active levothyroxine (Synthroid, Levoxyl) 100 MCG tabletIndications: Acquired hypothyroidism Take 1 tablet (100 mcg) by mouth before breakfast. 90 tablet 02/24/20 Active empagliflozin (Jardiance) 10 MGIndications:[place] [facility] marilou nonintractable headache, unspecified headache type Take 1 tablet (10 mg) by mouth in the morning. 90 tablet 02/24/20 23 Active FreeStyle lancetsIndications :Chronic nonintractable headache, unspecified headache type 1 each by Other route 3 times daily. Check blood glucose 100 each 02/24/20 Active Alcohol Swabs (Alcohol Prep) padsIndications:Ch ronic nonintractable headache, unspecified headache type Check BG three times daily 100 each 02/24/20 23 Active dulaglutide (Trulicity) 1.5 MG/0.5ML solution pen-injector Inject 1.5 mg under the skin 1 (one) time per week. 4 each 12/13/19 24 Active Diclofenac Sodium 1 % gelIndications:Tro chanteric bursitis of right hip,Left wrist pain Apply to affected area once daily as needed for pain 200 g 2 02/28/20 24 Active topiramate (Topamax) 25 MG tablet Take 25 mg by mouth Once per day. Active glucose blood (FREESTYLE LITE) test stripIndications:C hronic nonintractable headache, unspecified headache type 1 each by Other route Once per day. 100 each 3 02/01/20 25 Active amitriptyline (Elavil) 25 MG tablet Take 25 mg by mouth at bedtime. 03/13/20 25 026 Active lisinopril 2.5 MG tablet Take 1 tablet (2.5 mg) by mouth Once per day. 30 tablet 11 05/01/20 25 026 Active Calcium Carb-Cholecalcifer ol (Calcium + Vitamin D3) 500-5 MG-MCG tablet Take 1 tablet by mouth 2 times daily. 180 tablet 3 05/09/20 25 Active lisinopril 5 MG tabletIndications: Primary hypertension Take 1 tablet (5 mg) by mouth in the morning. 90 tablet 3 02/24/20 23 025 Discontin ued(Dose adjustmen t) Active Problems Problem Noted Date Diagnosed Date Anxiety and depression 05/09/2025 Assessment & Plan (05/09/2025 12:01 PM EDT): - PHQ-9 score 15 and YESSY-7 score 16 on 05/01/2025 - Continue sertraline Stage 3 chronic kidney disease (CMS/HCC) 025 Assessment & Plan (05/09/2025 12:06 PM EDT): - slight decline in eGFR in November 2024 - patient has not completed a lab yet; reminded - patient is having low BP; will decrease ACEI Osteoporosis 05/09/2025 Assessment & Plan (05/09/2025 12:23 PM EDT): - multifactorial: hypothyroidism - DEXA in May 2025: Lumbar spine T-score -2.5; femoral neck T-score -2..1 - patient takes levothyroxine and taking alendronate is cumbersome; patient prefers injectable medication - refer to endocrinology - maintain adequate calcium and vitamin D intake - weight-bearing exercise Decreased renal function 02/14/2025 Assessment & Plan (02/14/2025 6:49 AM EDT): Most recent lab showed serum creatinine 1.04, BUN 15, EGFR 53 Possible mild dehydration Encouraged to drink plenty of fluid Continue checking BP at home. 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 - following with neurologist - continue engaging in social activity / social interaction Assessment & Plan (02/14/2025 6:57 AM EDT): [...] evaluated by [facility], received steroid injection in October 2024 Assessment & Plan (04/10/2024 2:00 PM EDT): - apply diclofenac topical and take APAP 1g q8h prn - thigh muscle exercise - evaluated by [facility], received steroid injection Assessment & Plan (07/16/2023 5:18 AM EST): - apply diclofenac topical and take APAP 1g q8h prn - thigh muscle exercise - evaluated by [facility], received steroid injection Assessment & Plan [...] Chronic headache disorder 02/24/2017 Assessment & Plan (05/09/2025 12:13 PM EDT): -With dizziness -Following with neurologist -Continue current treatment for migraine -carotid US on 05/28/21 showed right side minimal stenosis and left side was normal -brain MRI 03/25/25 normal -continue amitriptyline 25 mg at bedtime -continue topiramate 25 mg daily Assessment & Plan (02/03/2025 8:17 AM EDT): [...] mg qhs Migraine 02/24/2017 Assessment & Plan (05/09/2025 12:13 PM EDT): - following with neurologist, last seen in March 2025 -Imaging study: MRI normal in Mar 2025 - previously on amitriptyline, which was discontinued by her neurologist in Jun 2024 -continue topiramate 25 mg at bedtime -continue amitriptyline -continue sumatriptan and Excedrin migraine prn -improve sleep hygiene -avoid triggers Assessment & Plan (02/14/2025 6:59 AM EDT): [...] (02/14/2025 6:52 AM EDT): - following with [facility] orthopedist, received cortisone [...] normal range Hypertension 01/28/2015 Assessment & Plan (05/09/2025 12:07 PM EDT): -Goal BP < 130/80 per ACC/AHA guideline -BP at goal today, but usually soft BP and patient reports lightheadedness. Last BMP suggests possible renal hypoperfusion -Continue working on lifestyle modification and medication adherence. -Decrease lisinopril to 2.5 mg daily. Assessment & Plan (02/03/2025 8:15 AM EDT): [...] 01/13/13 - refer back for another colonoscopy Depression 04/04/2012 Assessment & Plan (05/09/2025 11:59 AM EDT): - PHQ-9 score 15 on 05/01/2025 - YESSY-7 score 16 on 05/01/2025 - Continue sertraline 100 mg daily - Patient is taking amitriptyline for headache prophylaxis - At high risk for loneliness (patient lost her dog), yet patient has very supportive family - Patient declines S referral - continue current medications - Patient will be traveling to [place] in winter, and it seemed to improve her mood Assessment & Plan (02/03/2025 8:16 AM EDT): [...] Up to date per pt (received at [facility]) Follow up in 3-4 mo. Assessment [...] Up to date per pt (received at [facility]) Follow up in 3-4 mo. Assessment [...] Up to date per pt (received at [facility]) Follow up in 3-4 mo. Assessment [...] Up to date per pt (received at [facility]) Follow up in 3-4 mo. Assessment [...] Up to date per pt (received at [facility]) Follow up in 3-4 mo. Assessment [...] Up to date per pt (received at [facility]) Follow up in 3 mo. Dyslipidemia 04/04/2012 Assessment & Plan (05/09/2025 12:07 PM EDT): - current medication: Atorvastatin 80 mg at bedtime - Last lipid profile: 12/19/24 TC 175; TG 93; LDL 88; HDL 69 - continue working on lifestyle modification - continue high-intensity statin therapy Assessment & Plan (02/03/2025 8:19 AM EDT): [...] statin therapy Hypothyroidism 04/04/2012 Assessment & Plan (05/09/2025 12:02 PM EDT): - current replacement: levothyroxine 100 mcg daily - Last TSH 1.69 on 01/18/2025 - Continue current treatment plan. Assessment & Plan (02/03/2025 8:16 AM EDT): [...] Encounters Date Type Department Care Team Description 05/09/2025 Orders Only [address] [id number] Lolis Gastelum MD Other osteoporosis without current pathological fracture (Primary Dx) 05/09/2025 Results Follow-Up [address] [place] [address] Lolis Gastelum MD BD DEXA Axial 05/01/2025 9:30 AM EDT Office Visit [address] [address] Lolis Gastelum MD Type 2 diabetes mellitus with stage 3a chronic kidney disease, without long-term current use of insulin (HCC) (Primary Dx); Type 2 diabetes mellitus without complication, without long-term current use of insulin (HCC); Encounter for immunization; Moderate episode of recurrent major depressive disorder (CMS/HCC) ([facility]); Anxiety and depression; Tubular adenoma of colon; Acquired hypothyroidism; Vitamin D deficiency; Stage 3a chronic kidney disease (CMS/HCC) ([facility]); Primary hypertension; Dyslipidemia; Mild cognitive impairment; Chronic nonintractable headache, unspecified headache type; Chronic migraine without aura without status migrainosus, not intractable 05/01/2025 Travel 04/30/[address] [address] Lolis Gastelum MD chart prep 03/08/[address] [address] Lolis Gastelum MD Durable Medical Equipment (DME Order: Shower Bench) from Last 3 Months Immunizations Immunization Administration Dates Next Due Hep B, adult 06/20/2013,01/29/2013,12/21/2012 Influenza High-dose Quadriva lent Preservative Free 07/04/2023 Influenza injectable quadriv alent IIV4 with preservative 07/29/2017,04/26/2016,07/08/2015 Influenza injectable quadriv alent preservative free 06/14/2019 Influenza, High Dose Seasona l, Preservative Free 05/01/2025,04/10/2024 Influenza, IIV3, injectable 04/16/2011 Influenza, Split (incl. [...] housing situation today? I have stephaniematthias rubio 05/01/[address] you [...] Sign Reading Time Taken Comments Blood Pressure 118/76 05/01/2025 10:00 AM EDT Pulse 65 05/01/2025 10:00 AM EDT Temperature 35.9 C (96.6 F) 05/01/2025 10:00 AM EDT Respiratory Rate 15 05/01/2025 10:00 AM EDT Oxygen Saturation 97% 05/01/2025 10:00 AM EDT Inhaled Oxygen Concentration - - Weight 75.9 kg (167 lb 6.4 oz) 05/01/2025 10:00 AM EDT Height 160 cm (5' 3 ) 05/01/2025 10:00 AM EDT Body Mass Index 29.65 05/01/2025 10:00 AM EDT Plan of Treatment Health Maintenance Due Date Last Done Comments CT Colonography 1955 FIT DNA/Cologuard 1955 FIT 1955 FOBT 1955 Sigmoidoscopy 1955 Hepatitis C Screening 1974 Zoster Vaccines (2 of 3) 09/23/2017 07/29/2017 Eye Exam 03/31/2023 03/31/2022 Colonoscopy 06/10/2024 06/10/2019 Colorectal Cancer Screening 06/10/2024 COVID-19 Vaccine ( season) 2025 08/23/2023, 03/09/2022, 05/01/2021, Additional history exists Diabetes: Hemoglobin A1C 08/01/2025 025, 01/31/2025, 04/10/2024, Additional history exists Depression Monitoring 10/30/2025 05/01/2025, 025 Mammogram 11/02/2025 11/02/2024, 07/02, 07/09/2022, Additional history exists Lipid Panel 12/19/2025 12/19/2024, 10/2023, 06/14/2022, Additional history exists Alcohol/Substance Use Screening 05/01/2026 05/01/2025 Diabetes: Foot Exam 05/01/2026 05/01/2025, SDOH Screening 05/01/2026 05/01/2025 Tobacco Screening 05/01/2026 05/01/2025 DTaP/Tdap/Td Vaccines (3 - Td or Tdap) 05/25/2032 05/25/2022, 04/04/2012, 09/01/2009, Additional history exists Hepatitis B Vaccines Completed 06/20/2013, 01/29/2013, 12/21/2012 RSV Patients and Patients Aged 60 years or older Completed 08/26/2023 Pneumococcal Vaccine: 50+ Years Completed 12/13/2023, 04/17/2008, 10/06/2000 Influenza Vaccine Completed 05/01/2025, , 07/04/2023, Additional history exists HIB Vaccines Aged Out [...] Procedure Name Priority Date/Time Associated Diagnosis Comments BD DEXA AXIAL Routine 05/09/2025 9:35 AM EDT Osteoporosis screening Postmenopausal POCT GLYCOSYLATED HEMOGLOBIN (HGB A1C) Routine 05/01/2025 9:59 AM EDT Type 2 diabetes mellitus without complication, without long-term current use of insulin ([facility]) POCT GLUCOSE Routine 05/01/2025 9:58 AM EDT Type 2 diabetes mellitus without complication, without long-term current use of insulin ([facility]) LIPID PANEL WITH REFLEX TO DIRECT LDL Routine 12/19/2024 11:00 AM EDT Type 2 diabetes mellitus without complication, without long-term current use of insulin ([facility]/HCC) BI MAMMOGRAM SCREENING TOMOSYNTHESIS BILATERAL Routine 11/02/2024 9:16 AM EDT DIABETES EYE EXAM Routine 03/31/2022 COLONOSCOPY Routine 06/10/2019 from Last 3 Months or Most Recently Relevant to Health Maintenance Results * BD DEXA Axial (05/09/2025 9:35 AM EDT) Anatomical Region Laterality Modality Body Radiographic Sophie ging 05/09/2025 9:35 AM EDT Narrative 05/09/2025 10:02 AM EDT [facility] [address] [place] [address] Mammography Report Signed Patient: Lotus Garza MR#: [id number] 4 : 1955 Acct:[id number] Age/Sex: 69 / F ADM Date: 05/09/25 Loc: [facility] Attending Dr: Lolis Gastelum MD Ordering Physician: Lolis Gastelum MD Results: Date of Service: 05/09/25 Follow Up: Procedure(s): XR DEXA axial skeleton Accession Number(s): [id number] cc: Lolis Gastelum MD Reason For Exam: postmenopausal, osteoporosis screening EXAMINATION: DXA BONE DENSITY AXIAL HISTORY: postmenopausal, osteoporosis screening TECHNIQUE: [place] Dual energy absorptiometry (DEXA) of the lumbar spine, total left hip, and femoral neck was performed. COMPARISON: Comparison is made with the prior examination dated 10/19/2011. FINDINGS: The bone mineral density of the lumbar spine is 0.882 g/cm2, corresponding to a T-score of -2.5, and a Z-score of -1.2. This is indicative of osteoporosis. This represents a BMD change of -6.4% compared to the prior exam. This is statistically significant. The bone mineral density of the left total hip is 0.774 g/cm2, corresponding to a T-score of -1.9, and a Z-score of -0.7. This is indicative of osteopenia. This represents a BMD change of -22.5% compared to the prior exam. This is statistically significant. The bone mineral density of the left femoral neck is 0.741 g/cm2, corresponding to a T-score of -2.1, and a Z-score of -0.7. This is indicative of osteopenia. This represents a BMD change of -22.7% compared to the prior exam. FRACTURE RISK: The FRAX index suggests a ten year probability of major osteoporotic fracture of 11.0%, and of hip fracture 2.4%. MM/XR DEXA axial skeleton IMPRESSION: Based on bone mineral density, and according to World Health Organization (WHO) criteria, the diagnosis is consistent with osteoporosis. Statistically, 68% of repeat scans fall within 1 SD (+/- 0.010 g/cm2 for AP spine L1-L4) and 1 SD (+/- 0.012 g/cm2 for femur total) FRAX is a trademark of the [employer] [place] for Metabolic Bone Disease, a World Health Organization (WHO) Collaborating Center. Electronically signed by: Eddy Cm MD 05/09/2025 09:59 AM EDT RP Dictated By: Eddy Cm MD Signed By: <Electronically signed by Eddy Cm MD in OV> 05/09/2559 DD/ 4 TD/TT: 05/09/25954 Medical/Surgery Registered Nurse: Procedure Note Donotuseinterpreter, Image - 05/09/2025 [facility] [address] [place], [place] [address] Mammography Report Signed Patient: Lotus Garza#: [id number] 4 : 7Acct:[id number] Age/Sex: 69 / FADM Date: 05/09/25 Loc: [facility] Attending Dr: Lolis Gastelum MD Ordering Physician: Lolis Gastelum MDResults: Date of Service: 05/09/25Follow Up: Procedure(s): XR DEXA axial skeleton Accession Number(s): [id number] cc: Lolis Gastelum MD Reason For Exam: postmenopausal, osteoporosis screening EXAMINATION: DXA BONE DENSITY AXIAL HISTORY: postmenopausal, osteoporosis screening TECHNIQUE: [place] Dual energy absorptiometry (DEXA) of the lumbar spine, total left hip, and femoral neck was performed. COMPARISON: Comparison is made with the prior examination dated 10/19/2011. FINDINGS: The bone mineral density of the lumbar spine is 0.882 g/cm2, corresponding to a T-score of -2.5, and a Z-score of -1.2. This is indicative of osteoporosis. This represents a BMD change of -6.4% compared to the prior exam. This is statistically significant. The bone mineral density of the left total hip is 0.774 g/cm2, corresponding to a T-score of -1.9, and a Z-score of -0.7. This is indicative of osteopenia. This represents a BMD change of -22.5% compared to the prior exam. This is statistically significant. The bone mineral density of the left femoral neck is 0.741 g/cm2, corresponding to a T-score of -2.1, and a Z-score of -0.7. This is indicative of osteopenia. This represents a BMD change of -22.7% compared to the prior exam. FRACTURE RISK: The FRAX index suggests a ten year probability of major osteoporotic fracture of 11.0%, and of hip fracture 2.4%. MM/XR DEXA axial skeleton IMPRESSION: Based on bone mineral density, and according to World Health Organization (WHO) criteria, the diagnosis is consistent with osteoporosis. Statistically, 68% of repeat scans fall within 1 SD (+/- 0.010 g/cm2 for AP spine L1-L4) and 1 SD (+/- 0.012 g/cm2 for femur total) FRAX is a trademark of the [employer] [place] for Metabolic Bone Disease, a World Health Organization (WHO) Collaborating Center. Electronically signed by: Eddy Cm MD 05/09/2025 09:59 AM EDT Dictated By: Eddy Cm MD Signed By: <Electronically signed by Eddy Cm MD in OV> 05/09/25958 DD/ 4 TD/TT: 05/09/25954 Medical/Surgery Registered Nurse: Lolis Gastelum MD IMG DXA PROCEDURES Final Result * (ABNORMAL) POCT glycosylated hemoglobin (Hgb A1c) (05/01/2025 9:59 AM EDT) Hemoglobin A1C 7.3(A) 4.0 - 5.7 % QC Media Lot # [id number] Lot# Expiration Date , Blood Capillary blood specimen / Unknown 05/01/2025 9:59 AM EDT Lolis Gastelum MD POINT OF CARE TEST ENTER/EDIT OR DERABLES Final Result * POCT glucose manually resulted (05/01/2025 9:58 AM EDT) Pathologist [facility] Glucose Blood, POC 177 60 - 200 mg/dL QC Media Lot # [id number] Lot# Expiration Date 102,054 Blood Capillary blood specimen / Unknown 05/01/2025 9:58 AM EDT Lolis Gastelum MD POINT OF CARE TEST ENTER/EDIT OR DERABLES Final Result * Lipid Panel with Reflex to Direct LDL (12/19/2024 11:00 AM EDT) Triglycerides 93 <150 mg/dL [facility] Comment:Desirable Triglyceri de: less than 150 mg/dLBorderline High Triglyceride 150-199 mg/dLHigh Triglyceride: 200-499 mg/dLVery High Triglyceride: greater than or equal to 5OO mg/dL Cholesterol 175 <200 mg/dL [facility] Comment:Desirable Cholestero l: less than 200 mg/dLBorderline High Cholesterol: 200-239 mg/dLHigh Cholesterol: greater than 239 mg/dL LDL Cholesterol Calculated 88 <100 mg/dL [facility] Comment:Desirable LDL: less than 100 mg/dLNear Optimal/Above Optimal LDL: 110- 129 mg/dLBorderline High LDL: 130-159 mg/dLHigh LDL: 160-189 mg/dLVery High LDL: greater than or equal to 190 mg/dL HDL Cholesterol 69 >40 mg/dL [facility] Comment:Desirable HDL: great er than 40 mg/dL Note: This HDL assay may give artificially low results in patients with liver disease. Blood 12/19/2024 11:0 0 AM EDT 12/19/2024 11:00 AM EDT us Lolis Gastelum MD LAB BLOOD ORDERABLES Final Resul t [facility] [address] [place] [phone] * BI Mammogram Screening Tomosynthesis Bilateral (11/02/2024 9:16 AM EDT) Anatomical Region Laterality Modality Breast Bilateral Mammography 11/02/2024 9:16 AM EDT Narrative 11/07/2024 1:06 PM EDT [address] [place] [address] Mammography Report Signed Patient: Lotus Garza MR#: [id number] 4 : 1955 Acct:[id number] Age/Sex: 68 / F ADM Date: 11/02/24 Loc: [facility] Attending Dr: Lolis Gastelum MD Ordering Physician: Lolis Gastelum MD Results: 1Negative Date of Service: 11/02/24 Follow Up: 1 Year From Orig inal Mammogram Procedure(s): MM tomosynthesis screening BI Accession Number(s): [id number] cc: Lolis Gastelum MD EXAMINATION: MM SCREENING [...] Nette House DO 11/07/2024 01:03 PM EDT RP Dictated By: Nette House DO Signed By: <Electronically signed by Nette House DO in OV> 11/07/24 1303 DD/ TD/TT: 11/02/24 0933 Medical/Surgery Registered Nurse: Procedure Note Donotuseinterpreter, Image - 11/07/2024 [facility] [address] [place] [address] Mammography Report Signed Patient: Shantanu Garza#: [id number] 4 : 1955cct:[id number] Age/Sex: 68 / FADM Date: 11/02/24 Loc: [facility] Attending Dr: Lolis Gastelum MD Ordering Physician: Lolis Gastelum MDResults: 1Negative Date of Service: 11/02/24Follow Up: 1 Year From [facility] Mammogram Procedure(s): MM tomosynthesis screening BI Accession Number(s): [id number] cc: Lolis Gastelum MD EXAMINATION: MM SCREENING [...] 11/07/24 1303 DD/ 0916 TD/TT: 11/02/24 0933 Medical/Surgery Registered Nurse: us Lolis Gastelum MD IMG BI PROCEDURES Final Result * Diabetes Eye Exam (03/31/2022) Eye Exam Normal Normal [facility] HEALTH MAINTENANCE Final Result * Colonoscopy (06/10/2019) Colonoscopy Normal Normal us Lolis Gastelum MD HEALTH MAINTENANCE Edited Result - Final from Last 3 Months or Most Recently Relevant to Health Maintenance Insurance * Guarantor: Lotus Garza Account Type Relation to Patient Date of Phone Billing Address Personal/Family Self 1955 [address] [facility] [address] [place] [address] [facility] DUAL COMPLETE Care Teams Trim And Burr Operator Relationship Specialty Start Date End Date Lolis Gastelum MD [address] [place] [id number] PCP - General Family Medicine 08/01/18
--- OUTSIDE RECORDS SUMMARY | 2025-05-21 13:42 | XMS_ITS | Patient Health Record ---
Author Organization [facility] Address [address] [place] [phone] Care Team Providers Care Pocket Cutter Name Role Phone Oriana AZAR, Lolis Primary Care Provider Osito Edge Jr Unavailable [phone] Allergies Allergen (clinical drug ingredient) Drug/Non [...] at 5:00 p.m. the day before the procedure; Duration: 1 day 02/28/2019 Active Levothyroxine Sodium 100 MCG 1 tablet on an empty stomach in the morning Orally Once a day; Duration: 30 day(s) Active Omeprazole 40 MG 1 capsule Orally Onc e a day; Duration: 30 day(s) Active Lisinopril 2.5 MG 1 tablet Orally Once a day; Duration: 30 day(s) Active Atorvastatin Calcium 80 MG 1 tablet Oral ly Once a day; Duration: 30 day(s) Active Clotrimazole 1 % 1 application at bed time Vaginal Once a day; Duration: 7 day(s) Active Vitamin D 1000 UNIT 1 tablet Orally Once a day; Duration: 30 day(s) Active Aspir-Low 81 MG 1 tablet Orally Once a day; Duration: 30 day(s) Active Immunizations Vaccine Route Administration [...] W/U Status Risk Notes Problem Esophageal reflux (813053691) Esophageal reflux (530.81) Active confirmed Problem Constipation (40515499) Constipation (564.00) Active confirmed Problem Colon cancer screening (740433098) Colon cancer screening (Z12.11) Active confirmed Problem Gastroesophageal reflux disease without esophagitis (510059309) Gastroesophageal reflux disease without esophagitis (K21.9) Active confirmed Plan Of Treatment Future Test Test Name Order Date COLONOSCOPY 06/16/2012 COLONOSCOPY 02/28/2019 Next Appt Details Provider Name:Osito iverson , 08/26/2025 01:55:00 PM, [address] [facility], [address], [place], [address], Insurance Providers Payer Name Payer Address Payer Phone Subscriber Number Group Number Insured Name Patient Relationship to Insured Coverage Start Date Coverage End Date [facility] [address] [address] [place] [address] [id number] LEENA SLATER Self - patient is the insured Medical (General) History Medical History History ICD Code colonoscopy 06-09-2007 colon polyps anemia hypertension hypoactive thyroid anxiety/depression diabetes mellitus type II peptic ulcer disease elevated cholesterol depression Surgical History Surgery Date(Month/Year) tubal ligation hysterectomy gastric bypass
--- OUTSIDE RECORDS SUMMARY | 2025-05-21 13:42 | XMS_ITS | Encounter Summary ---
Author Organization [employer] Address [address] [facility] 7[address] [place] [address] Care Team Providers Care Cardboard Inserter Name Role Phone Lolis Gastelum MD Primary Care Provider [phone] Encounter Details Date Type Department Care Team ([facility] st Contact Info) Description 07/20/2023 Abstract [facility] MEDICINE [address], [place] [phone] Lolis Gastelum MD [address] [place], [place] [phone] Social History Tobacco Use Types Packs/Day Years [...] documented as of this encounter Care Teams Cardboard Inserter Relationship Specialty Start Date End Date Lolis Gastelum MD [address] [place] [address] PCP - General Family Medicine 08/01/18 documented as of this encounter
== END 2025-05-21 11:32 | disposition home or self-care (01) ==
LOC: HO.HCS 10:57
PROVIDERS: PCP Family Medicine; Visit Provider Internal Medicine
DX: R00.2 Palpitations (principal); R07.2 Precordial pain
CPT/HCPCS: 93010; 99204; G2211

== ENCOUNTER → 2025-05-21 10:56 | Outpatient (BNVA) | payer OTHER, SELFPAY | PROVIDERS: PCP Family Medicine; Visit Provider Internal Medicine | DX: R07.2 Precordial pain (principal) | CPT/HCPCS: 93005; 99202 ==

== ENCOUNTER 2025-06-25 10:20 | Outpatient (REF) | payer OTHER, MEDICAID, SELFPAY ==
--- OUTSIDE RECORDS SUMMARY | 2025-06-25 09:00 | XMS_ITS | Encounter Summary ---
Author Organization [employer] Address [address] [place] [address] 7t [place] [address] Care Team Providers Care Process Manager Name Role Phone Lolis Gastelum MD Primary Care Provider [phone] Reason for Referral * Neurology (Routine) - Authorized Specialty Diagnoses / Procedures Referred By Contac t Referred To Contact Diagnoses Left leg weakness Procedures Nerve conduction test Lizzette Costa MD [address] [place] [address] Phone: tel: fax: [address] [address] Phone: tel: fax: Referral ID Status Reason Start Date Expiration Date V isits Requested Visits Authorized [id number] Authorized 06/25/2025 06/25/2026 1 1 * Neurology (Routine) - Authorized Specialty Diagnoses / Procedures Referred By Contac t Referred To Contact Diagnoses Left leg weakness Procedures EMG Lizzette Costa MD [address] [place] [phone] Phone: tel: fax: [address] [address] Phone: tel: fax: Referral ID Status Reason Start Date Expiration Date V isits Requested Visits Authorized [id number] Authorized 06/25/2025 06/25/2026 1 1 * Imaging (Routine) - Pending Review Specialty Diagnoses / Procedures Referred By Tino lewis Referred To Contact Radiology Diagnoses Left leg weakness Procedures MR Lumbar Spine w/o Contrast Lizzette Costa MD [address] [place] [address] Phone: tel: fax: [address] [address] Phone: tel: fax: Referral ID Status Reason Start Date Expiration Date V isits Requested Visits Authorized [id number] Pending Review 06/25/2025 06/25/2026 1 1 Encounter Details Date Type Department Care Team (Late st Contact Info) Description 06/25/2025 9:00 AM EST Office Visit [facility] MEDICINE [address] [place] [phone] Lizzette Costa MD [address] [place], [place] [phone] Other fatigue (Primary Dx); Left leg weakness Social History Tobacco Use Types Packs/Day Years Used Date Smoking Tobacco: Former Cigarettes Passive Smoke Exposure: Never Smokeless Tobacco: Never Tobacco Cessation:Counseling Given: Not Answered Depression Answer Date Recorded Patient Health Questionnaire-9 Score 17 06/25/2025 Patient Health Questionnaire-9 Score 17 06/25/2025 Last PHQ-9: Questionnaire Data Not on file 1 08/25/2024 Housing Stability Answer Date Recorded What is [...] Answer Date Recorded Patient Health Questionnaire-2 Score 6 06/25/2025 Internet Access Answer Date Recorded Internet Access [...] Sign Reading Time Taken Comments Blood Pressure 122/62 06/25/2025 9:06 AM EST Pulse 72 06/25/2025 9:06 AM EST Temperature 36.2 C (97.1 F) 06/25/2025 9:06 AM EST Respiratory Rate 20 06/25/2025 9:06 AM EST Oxygen Saturation 99% 06/25/2025 9:06 AM EST Inhaled Oxygen Concentration - - Weight 75.4 kg (166 lb 3.2 oz) 06/25/2025 9:06 A M EST Height 160 cm (5' 3 ) 06/25/2025 9:06 AM EST Body Mass Index 29.44 06/25/2025 9:06 AM EST documented in this encounter Functional Status * Over the past 2 weeks, how often have you been bothered by any of the following problems? Question Answer Date of Assessment Author Patient Health Questionnaire-2 Score 6 06/25/2025 9:58 AM EST Jose Clark LMHC * Little interest or pleasure in doing things Answer Date of Assessment Author Nearly every day 06/25/2025 9:58 AM EST Jose Jo LMHC * Feeling down, depressed, or hopeless Answer Date of Assessment Author Nearly every day 06/25/2025 9:58 AM Jose Carson LMHC * Trouble falling or staying asleep, or sleeping too much Answer Date of Assessment Author Nearly every day 06/25/2025 9:58 AM Jose Carson LMHC * Feeling tired or having little energy Answer Date of Assessment Author Nearly every day 06/25/2025 9:58 AM Jose Carson LMHC * Poor appetite or overeating Answer Date of Assessment Author Several days 06/25/2025 9:58 AM Jose Merida LMHC * Feeling bad about yourself - or that you are a failure or have let yourself or your family down Answer Date of Assessment Author More than half the days 06/25/2025 9:58 AM Jose Martinez LMHC * Trouble concentrating on things, such as reading the newspaper or watching television Answer Date of Assessment Author Several days 06/25/2025 9:58 AM oJse Merida LMHC * Moving or speaking so slowly that other people could have noticed? Or the opposite - being so fidgety or restless that you have been moving around a lot more than usual. Answer Date of Assessment Author Several days 06/25/2025 9:58 AM Jose Merida LMHC * Thoughts that you would be better off or hurting yourself in some way Answer Date of Assessment Author Not at all 06/25/2025 9:58 AM Jose Merida LMHC * Patient Health Questionnaire-9 Score Answer Date of Assessment Author 17 06/25/2025 9:58 AM Jose Merida LM[facility] * Over the last 2 weeks, how often have you been bothered by any of the following problems? Question Answer Date of Assessment Author Feeling nervous, anxious, or on edge 2 06/25/2025 9:58 AM Jose Chavez LMHC Not being able to stop or control worrying 2 06/25/2025 9:58 AM Jose Chavez LMHC Worrying too much about different things 2 06/25/2025 9:58 AM Jose Chavez LMHC Trouble relaxing 2 06/25/2025 9:58 AM EST Jose Bardales LMHC Being so restless that it is hard to sit still 2 06/25/2025 9:58 AM EST oJse Hicks LMHC Becoming easily annoyed or irritable 2 06/25/2025 9:58 AM EST Jose Hicks LMHC Feeling afraid as if something awful might happen 2 06/25/2025 9:58 AM EST Jose Jo LMHC YESSY-7 Total Score 14 06/25/2025 9:58 AM EST Jose Hicks LMHC * How difficult have these problems made it for you to do your work, take care of things at home, or get along with other people? Answer Date of Assessment Author Somewhat difficult 06/25/2025 9:58 AM EST Jose Gonzales LMHC documented as of this encounter Plan of Treatment Upcoming Encounters Date Type Department Care Team (Late st Contact Info) Description 07/23/2025 3:15 PM EST Office Visit [facility] MEDICINE [address] [place] [address] Lolis Gastelum MD [address] [place] [address] Scheduled Orders Name Type Priority Associated Diagnoses Orde r Schedule MR Lumbar Spine w/o Contrast Imaging Routine Left leg weakness Expected: 06/25/2025, Expires: 06/25/2026 EMG Neurology Routine Left leg weakness Expected: 06/25/2025 (Approximate), Expires: 06/25/2026 Nerve conduction test Neurology Routine Left leg weakness Expected: 06/25/2025 (Approximate), Expires: 06/25/2026 documented as of this encounter Goals Goal Patient Goal Type Associated Problems Recent Progress Patient-Stated? Author Help patients manage their type 2 diabetes Care Plan Help patients manage their type 2 diabetes Naomie Duran Weekly blood pressure task Care Plan Weekly blood pressure task No Naomie Gonzaelz Help patients manage their type 2 diabetes Care Plan Help patients manage their type 2 diabetes Naomie Duran Patient has chronic kidney disease Care Plan Patient has chronic kidney disease Naomie Duran Weekly blood pressure task Care Plan Weekly blood pressure task No Naomie Gonzalez Patient has chronic kidney disease Care Plan Patient has chronic kidney disease No Naomie Gonzalez Weekly blood pressure task Care Plan Weekly blood pressure task No Gavi Tillman MA Weekly blood pressure task Care Plan Weekly blood pressure task No Gavi Tillman [place] Patient has chronic kidney disease Care Plan Patient has chronic kidney disease No Gavi Tillman [place] Patient has chronic kidney disease Care Plan Patient has chronic kidney disease No Gavi Tillman MA Weekly blood pressure task Care Plan Weekly blood pressure task No Gavi Tillman MA Weekly blood pressure task Care Plan Weekly blood pressure task No Gavi Tillman [place] Patient has chronic kidney disease Care Plan Patient has chronic kidney disease No Gavi Tillman [place] Patient has chronic kidney disease Care Plan Patient has chronic kidney disease No Gavi Tillman MA Weekly blood pressure task Care Plan Weekly blood pressure task No Clara Choi Weekly blood pressure task Care Plan Weekly blood pressure task No Clara Choi Patient has chronic kidney disease Care Plan Patient has chronic kidney disease No Clara Choi Patient has chronic kidney disease Care Plan Patient has chronic kidney disease No Clara Choi Weekly blood pressure task Care Plan Weekly blood pressure task No Katy Serrato RN Weekly blood pressure task Care Plan Weekly blood pressure task No Katy Serrato, [place] Patient has chronic kidney disease Care Plan Patient has chronic kidney disease No Katy Serrato, RN Patient has chronic kidney disease Care Plan Patient has chronic kidney disease No Katy Serrato RN Weekly blood pressure task Care Plan Weekly blood pressure task No Irma Decker MA Weekly blood pressure task Care Plan Weekly blood pressure task No Irma Decker MA Patient has chronic kidney disease Care Plan Patient has chronic kidney disease No Irma Decker [place] Patient has chronic kidney disease Care Plan Patient has chronic kidney disease No Irma Decker MA Weekly blood pressure task Care Plan Weekly blood pressure task No Irma Decker MA Weekly blood pressure task Care Plan Weekly blood pressure task No Irma Decker MA Patient has chronic kidney disease Care Plan Patient has chronic kidney disease No Irma Decker [place] Patient has chronic kidney disease Care Plan Patient has chronic kidney disease No Irma Decker MA Weekly blood pressure task Care Plan Weekly blood pressure task No Jose Hong LMHC Weekly blood pressure task Care Plan Weekly blood pressure task No Jose Hong LMHC Patient has chronic kidney disease Care Plan Patient has chronic kidney disease No Jose Hong LMHC Patient has chronic kidney disease Care Plan Patient has chronic kidney disease No Jose Hong LMHC documented as of this encounter Procedures Procedure Name Priority Date/Time Associated Diagnosis Comments VITAMIN D,25-OH,TOTAL,IA Routine 06/25/2025 10:28 AM EST Other fatigue CBC WITH AUTO DIFFERENTIAL Routine 06/25/2025 10:28 AM EST Other fatigue TSH Routine 06/25/2025 10:28 AM EST Other fatigue T4, FREE Routine 06/25/2025 10:28 AM EST Other fatigue COMPREHENSIVE METABOLIC PANEL Routine 06/25/2025 10:28 AM EST Other fatigue documented in this encounter Results * Vitamin D, 25-Hydroxy, Total, Immunoassay (06/25/2025 10:28 AM EST) Vitamin D 25-OH Total 39.8 >30 ng/mL [facility] Comment: Health Based Reference Values*< 20 ng/mL Dkgxlybnp24-31 ng/mL Insufficient> 30 ng/mL Sufficient*Live RAMAN. N Engl J Med. 2007;357:266-280There is no well-established upper level of normal vitamin Dlevels. Some laboratories use 50 ng/mL as an upper limit ofnormal. However, toxicity is patient-dependent and may occurat any level. Careful correlation with the patient'spresentation is necessary and, if there is concern forvitamin D toxicity, treatment should be consideredirrespective of the serum level.Care must be taken in interpreting Vitamin D results fromdifferent laboratories and methodologies. Published datademonstrated that results from patients undergoinghemodialysis may show a negative bias when tested withvarious automated 25-OH vitamin D assays when compared toLC-MS/MS.When testing samples from patients whose predominant form ofVitamin D is Vitamin D2, such as patients receiving VitaminD2 supplementation, results that are subtherapeutic shouldbe confirmed with another method such as LC-MS/MS. Blood Venous blood specimen / Unknown 06/25/2025 10:28 AM EST 06/25/2025 11:38 AM EST Lizzette Robert MD LAB BLOOD ORDERAB LES Final Result Performing Organization Address City/[facility]/ZIP Co de Phone Number [facility] [address] [place] [phone] * T4, Free (06/25/2025 10:28 AM EST) Free T4 (Free Thyroxine) 1.18 0.71 - 1.85 ng/dL [facility] Blood Venous blood specimen / Unknown 06/25/2025 10:28 AM EST 06/25/2025 11:38 AM EST Lizzette Robert MD LAB BLOOD ORDERAB LES Final Result Performing Organization Address [facility] Co de Phone Number [facility] [address] [place] [phone] * TSH (06/25/2025 10:28 AM EST) Thyroid Stimulating Hormone 0.67 0.32 - 4.0 uIU/mL [facility] Comment:TSH 3rd Generation ( [facility]) Blood Venous blood specimen / Unknown 06/25/2025 10:28 AM EST 06/25/2025 11:38 AM EST Lizzette Robert MD LAB BLOOD ORDERAB LES Final Result Performing Organization Address City/[facility]/ZIP Co de Phone Number [facility] [address] [place] [phone] * (ABNORMAL) Comprehensive Metabolic Panel (06/25/2025 10:28 AM EST) Sodium 140 135 - 145 mmol/L [facility] Potassium 3.9 3.3 - 5.1 mmol/L [facility] Chloride 109(H) 96 - 108 mmol/L [facility] Carbon Dioxide 24 22 - 29 mmol/L [facility] Anion Gap 11(L) 12 - 20 [facility] Urea Nitrogen (BUN) 19(H) 9 - 16 mg/dL [facility] Creatinine, Serum 0.99 0.5 - 1.4 mg/dL [facility] Estimated Glomerular Filt Rate 56 [facility] Comment:Chronic Kidney Disea se: Estimated GFR < 60 mL/min/[id number] Kidney Disease: Estimated GFR < 15 mL/min/1.73m2 Glucose 144(H) 60 - 115 mg/dL [facility] Calcium 9.4 8.4 - 10.2 mg/dL [facility] Bilirubin, Total 0.3 0.0 - 1.0 mg/dL [facility] Aspartate Amino Transferase 23 5 - 31 U/L [facility] Alanine Aminotransferase 20 0 - 31 U/L [facility] Total Protein 7.2 6.5 - 8.0 g/dL [facility] Albumin Level 4.4 3.5 - 5.0 g/dL [facility] Alkaline Phosphatase 64 39 - 117 U/L [facility] Blood Venous blood specimen / Unknown 06/25/2025 10:28 AM EST 06/25/2025 11:38 AM EST us Lizzette Robert MD LAB BLOOD ORDERAB LES Final Result [facility] [address] [place] [phone] * (ABNORMAL) CBC auto differential (06/25/2025 10:28 AM EST) Pathologist [facility] White Blood Count 6.2 4.8 - 10.8 X10*3/uL [facility] Red Blood Count 5.11 4.20 - 5.50 X10*6/uL [facility] Hemoglobin 12.4 12.0 - 16.0 g/dl [facility] Hematocrit 40.7 37.0 - 47.0 % [facility] Mean Corpuscular Volume 79.6(L) 80.0 - 98.0 fL [facility] Mean Corpuscular Hemoglobin 24.3(L) 27.0 - 33.0 pg [facility] Mean Corpuscular HGB Conc 30.5(L) 31.0 - 35.0 g/dl [facility] Red Cell Distribution Width 14.6 11.0 - 16.0 % [facility] Platelet Count 278 160 - 400 X10*3/uL [facility] Mean Platelet Volume 10.2 9.4 - 12.3 fL [facility] Neutrophils Percent Auto 52.7 45 - 73 % [facility] Imm Gran Pct Auto 0.2 0.0 - 0.4 % [facility] Lymphocytes Percent Auto 38.4 20 - 40 % [facility] Monocytes Percent Auto 6.5 2 - 11 % [facility] Eosinophils Percent Auto 1.6 0 - 4 % [facility] Basophils Percent Auto 0.6 0 - 2 % [facility] NRBC Pct Auto 0.0 0.0 - 0.2 /100WBC [facility] Neutrophils Absolute Auto 3.3 2.0 - 8.3 x10*3/uL [facility] Imm Gran Abs Auto 0.01 0.00 - 0.03 X10*3/uL [facility] Lymphocytes Absolute Auto 2.4 1.2 - 4.9 X10*3/uL [facility] Monocytes Absolute Auto 0.4 0.1 - 1.2 X10*3/uL [facility] Eosinophils Absolute Auto 0.1 0.0 - 0.4 X10*3/uL [facility] Basophils Absolute Auto 0.0 0.0 - 0.2 X10*3/uL [facility] NRBC Abs Auto 0.000 0.0 - 0.012 X10*3/uL [facility] Blood Venous blood specimen / Unknown 06/25/2025 10:28 AM EST 06/25/2025 11:38 AM EST us Lizzette Robert MD LAB BLOOD ORDERAB LES Final Result Performing Organization Address City/State/[facility] Co de Phone Number [facility] [address] [place] [phone] documented in this encounter Visit Diagnoses Diagnosis Other fatigue- Primary Left leg weakness Muscle weakness (generalized) documented in this encounter Additional Health Concerns Active Problems Noted Date Diagnosed Date Help patients manage their type 2 diabetes 06/18 Weekly blood pressure task 06/18/2025 Help patients manage their type 2 diabetes 06/18 Patient has chronic kidney disease 06/18/2025 Weekly blood pressure task 06/18/2025 Patient has chronic kidney disease 06/18/2025 Weekly blood pressure task 06/19/2025 Weekly blood pressure task 06/19/2025 Patient has chronic kidney disease 06/19/2025 Patient has chronic kidney disease 06/19/2025 Weekly blood pressure task 06/19/2025 Weekly blood pressure task 06/19/2025 Patient has chronic kidney disease 06/19/2025 Patient has chronic kidney disease 06/19/2025 Weekly blood pressure task 06/19/2025 Weekly blood pressure task 06/19/2025 Patient has chronic kidney disease 06/19/2025 Patient has chronic kidney disease 06/19/2025 Weekly blood pressure task 06/20/2025 Weekly blood pressure task 06/20/2025 Patient has chronic kidney disease 06/20/2025 Patient has chronic kidney disease 06/20/2025 Weekly blood pressure task 06/24/2025 Weekly blood pressure task 06/24/2025 Patient has chronic kidney disease 06/24/2025 Patient has chronic kidney disease 06/24/2025 Weekly blood pressure task 06/24/2025 Weekly blood pressure task 06/24/2025 Patient has chronic kidney disease 06/24/2025 Patient has chronic kidney disease 06/24/2025 Weekly blood pressure task 06/25/2025 Weekly blood pressure task 06/25/2025 Patient has chronic kidney disease 06/25/2025 Patient has chronic kidney disease 06/25/2025 Assessment Noted Time PHQ-9 Depression Total Score: 17 025 9:58 AM EST documented as of this encounter Care Teams Process Manager Relationship Specialty Start Date End Date Lolis Gastelum MD [address] [place] [address] PCP - General Family Medicine 08/01/18 documented as of this encounter
[2025-06-25 11:43] LABS: MANUAL DIFF FLAG NO
[2025-06-25 11:55] LABS: Hematocrit 40.7 % (37.0-47.0); Hemoglobin 12.4 g/dl (12.0-16.0); Imm Gran Abs Auto 0.01 X10*3/uL (0.00-0.03); Imm Gran Pct Auto 0.2 % (0.0-0.4); Lymphocytes Absolute Auto 2.4 X10*3/uL (1.2-4.9); Mean Corpuscular HGB Conc 30.5 g/dl (31.0-35.0); Mean Corpuscular Hemoglobin 24.3 pg (27.0-33.0); Mean Corpuscular Volume 79.6 fL (80.0-98.0); NRBC Abs Auto 0.000 X10*3/uL (0.0-0.012); NRBC Pct Auto 0.0 /100WBC (0.0-0.2); Platelet Count 278 X10*3/uL (160-400); Red Blood Count 5.11 X10*6/uL (4.20-5.50); White Blood Count 6.2 X10*3/uL (4.8-10.8)
[2025-06-25 12:22] LABS: Alanine Aminotransferase 20 U/L (0-31); Albumin Level 4.4 g/dL (3.5-5.0); Alkaline Phosphatase 64 U/L (39-117); Anion Gap 11 (12-20); Aspartate Amino Transferase 23 U/L (5-31); Blood Urea Nitrogen 19 mg/dL (9-16); Calcium 9.4 mg/dL (8.4-10.2); Carbon Dioxide 24 mmol/L (22-29); Chloride 109 mmol/L (96-108); Estimated Glomerular Filt Rate 56; Potassium 3.9 mmol/L (3.3-5.1); Sodium 140 mmol/L (135-145); Total Protein 7.2 g/dL (6.5-8.0)
[2025-06-25 12:28] LABS: Free T4 (Free Thyroxine) 1.18 ng/dL (0.71-1.85); Thyroid Stimulating Hormone 0.67 uIU/mL (0.32-4.0)
--- OUTSIDE RECORDS SUMMARY | 2025-06-25 12:47 | XMS_ITS | Clinical Summary ---
Author Organization [facility] Address [address] [place] [address] Phone Care Team Providers Care Lan Manager Name Role Phone Lolis Gastelum MD Primary Care Provider [phone] Allergies Active Allergy Reactions Criticality Noted Date Comments Atropine Hives 05/23/2025 Hcxkbwbvi-Zmwrkt-Swuybrcd-Scop 03/13 Hyoscyamine Unknown 05/23/2025 Phenobarbital Unknown 05/23/2025 Scopolamine Unknown 05/23/2025 Medications Trulicity 0.75 mg/0.5 mL pen injector injection Inject 0.5 mL (0.75 mg total) under the skin 1 (one) time per week. 03/11/2025 Active Jardiance 10 mg tablet Take 1 tablet (10 mg total) by mouth 1 (one) time each day in the morning. 12/17/2024 Active levothyroxine (SYNTHROID, LEVOTHROID) 100 mcg tablet Take 1 tablet (100 mcg total) by mouth 1 (one) time each day before breakfast. 12/17/2024 Active metFORMIN XR (GLUCOPHAGE-XR) 500 mg 24 hr tablet 2 tablets (1,000 mg total) 2 (two) times a day. 12/17/2024 Active omeprazole (PriLOSEC) [address] capsule Take 1 capsule (40 mg total) by mouth 1 (one) time each day. 12/17/2024 Active sertraline (ZOLOFT) 100 mg tablet Take 1 tablet (100 mg total) by mouth 1 (one) time each day. 12/17/2024 Active CALCIUM CARBONATE-VITAM IN D3 ORAL Take 1 tablet by mouth 1 (one) time each day. 05/09/2025 Active lisinopriL (PRINIVIL,ZESTR IL) 2.5 mg tablet Take 1 tablet (2.5 mg total) by mouth daily. 05/01/2025 Active topiramate (Topamax) 50 mg tablet Take 1 tablet (50 mg total) by mouth 2 (two) times a day. 60 tablet 2 05/23/2025 Active magnesium oxide (MAG-OX) 400 mg magnesium tablet Take 1 tablet (400 mg total) by mouth 1 (one) time each day. 30 tablet 2 05/23/2025 Active riboflavin (VITAMIN B2) 400 mg tablet Take 1 tablet (400 mg total) by mouth 1 (one) time each day. 30 tablet 2 05/23/2025 Active Encounters Date Type Department Care Team Description 05/23/2025 11:40 AM EDT Office Visit [address] [place] [address] Pio [place] MD Migraine without aura and without status migrainosus, not intractable (Primary Dx) from Last 3 Months Surgical History Surgery Date Site/Laterality Comments GASTRIC BYPASS TUBAL LIGATION BREAST BIOPSY Medical History Medical History Date Comments Diabetes mellitus (CMS/HCC V24, CMS/HCC V28) Hyperthyroidism Hypertension High cholesterol Social History Tobacco Use Types Packs/Day Years Used Date Smoking Tobacco: Never Assessed Comments Unknown Sex and Gender Information Value Date Recorded Sex Assigned at Not on file Legal Sex Female 3:57 PM EDT Gender Identity Not on file Sexual Orientation Not on file Obstetrics History Last Filed Vital Signs Vital Sign Reading Time Taken Comments Blood Pressure 115/72 05/23/2025 11:37 AM EDT Pulse 65 05/23/2025 11:37 AM EDT Temperature 36.4 C (97.5 F) 03/13/2025 1:01 PM EDT Respiratory Rate - - Oxygen Saturation 99% 05/23/2025 11:37 AM EDT Inhaled Oxygen Concentration - - Weight 74.4 kg (164 lb) 05/23/2025 11:37 AM EDT Height 157.5 cm (5' 2 ) 05/23/2025 11:37 AM EDT Body Mass Index 30 05/23/2025 11:37 AM EDT Plan of Treatment Upcoming Encounters Date Type Department Care Team (Late st Contact Info) Description 10/29/2025 9:30 AM EDT Office Visit [facility] [address] [address] [place] [address] Purvi Watt PA [address] [place] [phone] Health Maintenance Due Date Last Done Comments Breast Cancer Screening 1955 Colorectal Cancer Screening: Colonoscopy 1956 Diabetes: Annual Foot Exam 1966 Diabetes: Annual Retina Eye Exam 1966 Zoster Vaccines (2 of 3) 09/23/2017 07/29/2017 Depression Screening 08/01/2024 Cholesterol Screening (Lipid Panel) 02/16/2025 Falls Risk Assessment 02/16/2025 Hepatitis C Screening 02/16/2025 Medicare Annual Wellness Visit 02/16/2025 Social Influencers of Health Screening 02/16/2025 Diabetes: Annual Urine Albumin-Creatinine Ratio (uACR) 03/22/2025 COVID-19 Vaccine ( season) 2025 08/23/2023, 03/09/2022, 05/01/2021, Additional history exists Diabetes: Blood Sugar Control Test (HGBA1C) 10/30/2025 05/01/2025, 01/31/2025 Diabetes: Annual GFR (Glomerular Filtration Rate) 01/18/2026 01/18/2025 Hypertension/CHF/CAD Annual BMP Blood Test 01/18/2026 01/18/2025 DTaP,Tdap,and Td Vaccines (5 - Td or Tdap) 05/25/2032 05/25/2022, 04/04/2012, 09/01/2009, Additional history exists Osteoporosis Screening (Bone Density Screening) 05/09/2035 05/09/2025 Hepatitis B Vaccines Completed 06/20/2013, 01/29/2013, 12/21/2012 RSV Immunization Adult Patients Completed 08/26/2023 Pneumococcal Vaccine: 50+ Years Completed [...] to complete this topic RSV Immunization Patients Under 20 months Aged Out No longer eligible based on patient's age to complete this topic Varicella Vaccines Aged Out No longer eligible based on patient's age to complete this topic Insurance [place] - [place] Member Subscriber Plan / Payer (Ef fective 2025-Present) Name:LOTUS SALOMON Relation to Subscriber:Self Name:Lotus Garza Payer ID:[id number] Group ID:Not on file Type:Not on file Address: [facility] ATTN:CLAIMS [address] [place] [address] [employer] MEDICARE Care Teams Lan Manager Relationship Specialty Start Date End Date Lolis Gastelum MD [address] [place] [phone] PCP - General Family Medicine 02/15/25
--- OUTSIDE RECORDS SUMMARY | 2025-06-25 12:47 | XMS_ITS | Encounter Summary ---
Author Organization [employer] Address [address] [facility] 7t [place] [address] Care Team Providers Care Land Management Forester Name Role Phone Lolis Gastelum MD Primary Care Provider [phone] Encounter Details Date Type Department Care Team ([facility] st Contact Info) Description 07/20/2023 Abstract [facility] MEDICINE [address] [place], [place] [phone] Lolis Gastelum MD [address] [place], [place] [phone] Social History Tobacco Use Types Packs/Day Years [...] Description 07/23/2025 3:15 PM EST Office Visit [facility] [address] [place], [place] [phone] Lolis Gastelum MD [address] [place], [place] [phone] documented as of this encounter Procedures Procedure [...] documented as of this encounter Care Teams Land Management Forester Relationship Specialty Start Date End Date Lolis Gastelum MD [address] [place], [place] [phone] PCP - General Family Medicine 08/01/18 documented as of this encounter
--- OUTSIDE RECORDS SUMMARY | 2025-06-25 12:47 | XMS_ITS | Encounter Summary ---
Author Organization [employer] Address [address] [facility] 7t [place] [address] Care Team Providers Care Director Human Services Name Role Phone Lolis Gastelum MD Primary Care Provider [phone] Encounter Details Date Type Department Care Team (Latest Contact Info) Description 06/25/2025 Travel Social History Tobacco Use Types Packs/Day [...] AM EDT documented as of this encounter Functional Status * Over the past 2 weeks, how often have you been bothered by any of the following problems? Question Answer Date of Assessment Author Patient Health Questionnaire-2 Score 6 06/25/2025 9:58 AM Jose Corley LMHC * Little interest or pleasure in doing things Answer Date of Assessment Author Nearly every day 06/25/2025 9:58 AM Jose Carson LMHC * Feeling down, depressed, or hopeless [...] 06/25/2025 9:58 AM Jose Merida LMHC * Moving or speaking so slowly that other people could have noticed? Or the opposite - being so fidgety or restless that you have been moving around a lot more than usual. Answer Date of Assessment Author Several days 06/25/2025 9:58 AM EST Jose Buenrostro LMHC * Thoughts that you would be [...] to sit still 2 06/25/2025 9:58 AM Jose Chavez LMHC Becoming easily annoyed or irritable 2 06/25/2025 9:58 AM Jose Chavez LMHC Feeling afraid as if something awful might happen 2 06/25/2025 9:58 AM Jose Carson LMHC YESSY-7 Total Score 14 06/25/2025 9:58 AM Jose Chavez LMHC * How difficult have these problems made it for you to do your work, take care of things at home, or get along with other people? Answer Date of Assessment Author Somewhat difficult 06/25/2025 9:58 AM Jose Artis LMHC documented as of this encounter Plan of Treatment Upcoming Encounters Date Type Department Care Team (Late st Contact Info) Description 07/23/2025 3:15 PM EST Office Visit [facility] [address] [place], [place] [phone] Lolis Gastelum MD [address] [place], [place] [phone] documented as of this encounter Goals Goal Patient Goal Type Associated Problems Recent Progress Patient-Stated? Author Help patients manage their type 2 diabetes Care Plan Help patients manage their type 2 diabetes No Naomei Gonzalez Weekly blood pressure task Care Plan Weekly blood pressure task No Naomie Gonzalez Help patients manage their type 2 diabetes Care Plan Help patients manage their type 2 diabetes No Naomie Gonzalez Patient has chronic kidney [...] has chronic kidney disease No Katy Serrato, [place] Patient has chronic kidney disease Care Plan Patient has chronic kidney disease No Katy Serrato, [place] Weekly blood pressure task Care Plan Weekly [...] Hong LMHC documented as of this encounter Visit Diagnoses Not on filedocumented in this encounter Additional Health Concerns Active [...] documented as of this encounter Care Teams Director Human Services Relationship Specialty Start Date End Date Lolis Gastelum MD [address] [place] [phone] PCP - General Family Medicine 08/01/18 documented as of this encounter
--- OUTSIDE RECORDS SUMMARY | 2025-06-25 12:47 | XMS_ITS | Encounter Summary ---
Author Organization [employer] Address [address] [facility] 7t [place] [address] Care Team Providers Care Mold Yard Crane Operator Name Role Phone Lolis Gastelum MD Primary Care Provider [phone] Encounter Details Date Type Department Care Team ([facility] st Contact Info) Description 08/18/2022 Abstract [facility] [address] [place], [place] [phone] Lolis Gastelum MD [address] [place], [place] [phone] Social History Tobacco Use Types Packs/Day Years [...] Description 07/23/2025 3:15 PM EST Office Visit [facility] [address] [place], [place] [phone] Lolis Gastelum MD [address] [place] [address] documented as of this encounter Visit Diagnoses Not on filedocumented in this encounter Additional Health Concerns Assessment Noted Time PHQ-9 Depression Total Score: 0 08/18/19 23 11:05 AM EST documented as of this encounter Care Teams Mold Yard Crane Operator Relationship Specialty Start Date End Date Lolis Gastelum MD [address] [place] [address] PCP - General Family Medicine 08/01/18 documented as of this encounter
--- OUTSIDE RECORDS SUMMARY | 2025-06-25 12:47 | XMS_ITS | Encounter Summary ---
Author Organization [employer] Address [address] [facility] 7t [place] [address] Care Team Providers Care Dictaphone Technician Name Role Phone Lolis Gastelum MD Primary Care Provider [phone] Encounter Details Date Type Department Care Team ([facility] st Contact Info) Description 06/25/2025 Orders Only [facility] MEDICINE [address] [place], [place] [phone] Lolis Gastelum MD [address] [place], [place] [phone] Social History Tobacco Use Types Packs/Day Years [...] on edge 2 06/25/2025 9:58 AM Jose Tucker LMHC Not being able to stop or control worrying 2 06/25/2025 9:58 AM Jose Chavez LMHC Worrying too much about different things 2 06/25/2025 9:58 AM Jose Chavez LMHC Trouble relaxing 2 06/25/2025 9:58 AM Jose Martinez LMHC Being so restless that it is [...] Description 07/23/2025 3:15 PM EST Office Visit [facility]INE [address] [place] [address] Lolis Gastelum MD [address] [place] [address] documented as of this encounter Goals Goal Patient Goal Type Associated Problems Recent Progress Patient-Stated? Author Help patients manage their type 2 diabetes Care Plan Help patients manage their type 2 diabetes No Naomie Gonzalez Weekly blood pressure task [...] Weekly blood pressure task No Katy Serrato, RN Weekly blood pressure task Care Plan Weekly blood pressure task No Katy Serrato, RN Patient has chronic [...] Weekly blood pressure task No Jose Hong MICHELLE Patient has chronic kidney disease Care Plan Patient has chronic kidney disease No Jose Hong MICHELLE Patient has chronic kidney disease Care Plan Patient has chronic kidney disease No Jose Hong MICHELLE documented as of this encounter Procedures Procedure Name Priority Date/Time Associated Diagnosis Comments TSH W/REFLEX TO FT4 Routine 06/25/2025 1 0:28 AM EST documented in this encounter Results * TSH with Reflex to Free T4 (06/25/2025 10:28 AM EST) TSH reflex Free T4 0.69 0.32 - 4.0 uIU/mL [facility] 06/25/2025 10:2 8 AM EST 06/25/2025 11:38 AM EST us Lolis Gastelum MD LAB BLOOD ORDERABLES Final Resul t [facility] [address] [place] [phone] documented in this encounter Visit Diagnoses Not [...] documented as of this encounter Care Teams Dictaphone Technician Relationship Specialty Start Date End Date Lolis Gastelum MD [address] [place] [phone] PCP - General Family Medicine 08/01/18 documented as of this encounter
--- OUTSIDE RECORDS SUMMARY | 2025-06-25 12:47 | XMS_ITS | Patient Health Record ---
Author Organization [facility] Address [address] [place] [phone] Care Team Providers Care Stack Attendant Name Role Phone Oriana AZAR, Lolis Primary Care Provider Osito Edge Jr Unavailable Allergies Allergen (clinical drug ingredient) Drug/Non Drug Allergy documented on EMR Reaction Allergy Type Onset Date Status atropine / hyoscyamine / phenobarbital / scopolamine Unknown Drug Allergy Active Reason For Referral No Information Medications Medication SIG (Take, Route, Frequency, Duration) Notes Start Date End Date Status Senna 8.6 MG Tablet as directed Orally a s directed Active Amitriptyline HCl 10 MG Tablet 1 tablet at bedtime Orally Once a day Active metFORMIN HCl 500 MG Tablet 1 tablet wit h a meal Orally twice a day Active MiraLax (colon prep) 8.3 ounce (238) grams mixed with Gatorade or Crystal Light orally begin at 5:00 p.m. the day before the procedure; Duration: 1 day 02/28/2019 Active Levothyroxine Sodium 100 MCG Tablet 1 tablet on an empty stomach in the morning Orally Once a day; Duration: 30 day(s) Active Omeprazole 40 MG Capsule Delayed Release 1 capsule Orally Once a day; Duration: 30 day(s) Active Lisinopril 2.5 MG Tablet 1 tablet Orally Once a day; Duration: 30 day(s) Active Atorvastatin Calcium 80 MG Tablet 1 tablet Orally Once a day; Duration: 30 day(s) Active Clotrimazole 1 % Cream 1 application at bedtime Vaginal Once a day; Duration: 7 day(s) Active Vitamin D 1000 UNIT Tablet 1 tablet Oral ly Once a day; Duration: 30 day(s) Active Aspir-Low 81 MG Tablet Delayed Release 1 tablet Orally Once a day; Duration: 30 day(s) Active Immunizations Vaccine Route Administration Date Status Comme nts Influenza Unknown 06/07/2018 Administered Social History Tobacco Use: Social History Observation Description Date Details (start date - stop date) Former Smoker NA - NA Social History Tobacco Use: Social Info Question Answer Notes Tobacco Use/Smoking Patient is a former smoker How long has it been since you last smoked? > 10 years Additional Details Category Social Info Options Details Miscellaneous: Marital status: single Occupation: unemployed Problems Problem Type SNOMED Code ICD Code Onset Dates Problem Status W/U Status Risk Notes Problem Esophageal reflux (585865058) Esophageal reflux (530.81) Active confirmed Problem Constipation (12170584) Constipation (564.00) Active confirmed Problem Colon cancer screening (942255025) Colon cancer screening (Z12.11) Active confirmed Problem Gastroesophageal reflux disease without esophagitis (806979121) Gastroesophageal reflux disease without esophagitis (K21.9) Active confirmed Plan Of Treatment Future Test Test Name Order Date COLONOSCOPY 06/16/2012 COLONOSCOPY 02/28/2019 Next Appt Details Provider Name:Osito iverson , 08/26/2025 01:55:00 PM, [address] [place] [address], [address], [place], [address], Insurance Providers Payer Name Payer Address Payer Phone Subscriber Number Group Number Insured Name Patient Relationship to Insured Coverage Start Date Coverage End Date [facility] [address] [address] [place] [phone] [id number] LEENA SLATER Self - patient is the insured Medical (General) History Medical History History ICD Code colonoscopy 06-09-2007 colon polyps anemia hypertension hypoactive thyroid anxiety/depression diabetes mellitus type II peptic ulcer disease elevated cholesterol depression Surgical History Surgery Date(Month/Year) tubal ligation hysterectomy gastric bypass
--- OUTSIDE RECORDS SUMMARY | 2025-06-25 12:47 | XMS_ITS | Encounter Summary ---
Author Organization [employer] Address [address] [place] [address] 7t [place] [address] Care Team Providers Care Hazmat Tanker Driver Name Role Phone Lolis Gastelum MD Primary Care Provider [phone] Encounter Details Date Type Department Care Team (Late st Contact Info) Description 03/07/2023 Abstract [facility] MEDICINE [address] [place] [phone] Lolis Gastelum MD [address] [place] [address] [phone] Social History Tobacco Use Types Packs/Day Years [...] Description 07/23/2025 3:15 PM EST Office Visit [facility] [address] [place] [phone] Lolis Gastelum MD [address] [place] [phone] documented as of this encounter Procedures Procedure Name Priority Date/Time Associated Diagnosis Comments DIABETES EYE EXAM Routine 03/31/2022 documented in this encounter Results * Hm Diabetes Eye Exam (03/31/2022) Eye Exam Normal Normal [facility] Unassigned Pcp HEALTH MAINTENANCE Final Result documented in this encounter Visit Diagnoses Not on filedocumented in this encounter Additional Health Concerns Assessment Noted Time PHQ-9 Depression Total Score: 0 08/18/19 23 11:05 AM EST documented as of this encounter Care Teams Hazmat Tanker Driver Relationship Specialty Start Date End Date Lolis Gastelum MD [address] [place] [address] PCP - General Family Medicine 08/01/18 documented as of this encounter
--- OUTSIDE RECORDS SUMMARY | 2025-06-25 12:48 | XMS_ITS | Encounter Summary ---
Author Organization [employer] Address [address] [place] [address] 7t [place] [address] Care Team Providers Care Business Integration Manager Name Role Phone Lolis Gastelum MD Primary Care Provider [phone] Reason for Referral * Consultation (Routine) - Authorized Specialty Diagnoses / Procedures Referred By Contac t Referred To Contact Endocrinology Diagnoses Other osteoporosis without current pathological fracture Lolis Gastelum MD [address] [place] [address] Phone: tel: fax: [facility] Referral ID Status Reason Start Date Expiration Date Visits Requested Visits Authorized [id number] Authorized Specialty Services Required 05/09/2025 05/09/2026 1 1 Encounter Details Date Type Department Care Team (Late st Contact Info) Description 05/09/2025 Orders Only [facility] MEDICINE [address] [place], [place] [phone] Lolis Gastelum MD [address] [place], [place] [phone] Other osteoporosis without current pathological fracture (Primary [...] documented in this encounter Plan of Treatment Upcoming Encounters Date Type Department Care Team (Late st Contact Info) Description 07/23/2025 3:15 PM EST Office Visit [facility] [address] [place] [phone] Lolis Gastelum MD [address] [place] [address] Scheduled Referrals Name Type Priority Associated Diagnoses [...] documented as of this encounter Care Teams Business Integration Manager Relationship Specialty Start Date End Date Lolis Gastelum MD [address] [place] [address] PCP - General Family Medicine 08/01/18 documented as of this encounter
--- OUTSIDE RECORDS SUMMARY | 2025-06-25 12:48 | XMS_ITS | Clinical Summary ---
Author Organization [employer] Address [address] [facility] [address] [place] [address] Care Team Providers Care Civilian Technician Name Role Phone Lolis Gastelum MD Primary Care Provider [phone] Allergies Active Allergy Reactions Criticality Noted Date Comments Atropine Hives Hyoscyamine Unknown Phenobarbital Unknown Phenobarbital-Belladonna Alk 025 Scopolamine Unknown Medications * This document contains information received from the source organization and may not represent a complete record from that organization. acetaminophen (Tylenol Extra Strength) 500 MG tabletIndications: [...] tablet 3 3 Active empagliflozin (Jardiance) 10 MGIndications:[facility] marilou nonintractable headache, unspecified headache type Take [...] per day. 100 each 3 5 Active amitriptyline (Elavil) 25 MG tablet Take 25 mg by mouth at bedtime. 5 03/13/20 Active lisinopril 2.5 MG tablet Take 1 tablet (2.5 mg) by mouth Once per day. 30 tablet 11 5 10/01/20 26 Active Calcium Carb-Cholecalcifer ol (Calcium + Vitamin D3) 500-5 MG-MCG tablet Take 1 tablet by mouth 2 times daily. 180 tablet 3 Active riboflavin (Vitamin B-2) 400 MG tablet Take 400 mg by mouth Once per day. Active magnesium oxide (Mag-Ox) 400 MG tablet Take 400 mg by mouth Once per day. Active Active Problems Problem Noted Date Diagnosed Date YESSY (generalized anxiety disorder) 06/25/2025 Anxiety and depression 05/09/2025 Assessment & Plan [...] - thigh muscle exercise - [place] [facility], received steroid injection in October 2024 Assessment & Plan (04/10/2024 2:00 PM EDT): - apply diclofenac topical and take APAP 1g q8h prn - thigh muscle exercise - evaluated [place] [facility], received steroid injection Assessment & Plan (07/16/2023 5:18 AM EST): - apply diclofenac topical and take APAP 1g q8h prn - thigh muscle exercise - evaluated [place] [facility], received steroid injection [...] (02/14/2025 6:52 AM EDT): - following with [facility] [place], received cortisone injection [...] 01/13/13 - refer back for another colonoscopy Moderately severe depression 04/04/2012 Assessment & Plan (05/09/2025 11:59 AM [...] medications - Patient will be traveling to [place] in winter, and it seemed to improve [...] Up to date per pt (received at [facility]) Follow up in 3-4 mo. Assessment [...] Up to date per pt (received at [facility]) Follow up in 3-4 mo. Assessment [...] Up to date per pt (received at [facility]) Follow up in 3-4 mo. Assessment [...] Up to date per pt (received at [facility]) Follow up in 3-4 mo. Assessment [...] Up to date per pt (received at [facility]) Follow up in 3-4 mo. Assessment [...] Up to date per pt (received at [facility]) Follow up in 3 mo. Dyslipidemia [...] Date Resolved Date Obesity 04/04/2012 08/22/2022 Encounters * This document contains information received from the source organization and may not represent a complete record from that organization. Date Type Department Care Team Description 06/25/2025 9:00 AM EST Office Visit [facility] [place] [address] Lizzette Costa MD Other fatigue (Primary Dx); Left leg weakness 06/25/2025 Orders Only [facility] [place] [address] Lolis Gastelum MD 06/25/2025 Travel 06/24/2025 Telephone [facility] [place] [address] Lolis Gastelum MD chart prep 06/20/2025 Telephone [facility] [place] [address] Lolis Gastelum MD 06/19/2025 Telephone [facility] [place] [address] Lolis Gastelum MD Chart Prep 06/18/2025 Telephone [facility] [place], [place] [address] Lolis Gastelum MD Nurse Triage 05/09/2025 Orders Only [facility] [place] [address] Lolis Gastelum MD Other osteoporosis without current pathological fracture (Primary Dx) 05/09/2025 Results Follow-Up [facility] [place] [address] Lolis Gastelum MD BD DEXA Axial 05/01/2025 9:30 AM EDT Office Visit [facility] [place] [address] Lolis Gastelum MD Type 2 diabetes mellitus [...] migrainosus, not intractable 05/01/2025 Travel 04/30/2025 [place] [address] Lolis Gastelum MD chart prep from Last 3 Months Immunizations Immunization Administration [...] PCV 20 12/13/2023 Pneumococcal Polysaccharide PPSV23 04/17/2008, RSV Adjuvant 08/26/2023 TD (adult), 2 Lf tetanus tox oid, [...] Mass Index 29.44 06/25/2025 9:06 AM EST Plan of Treatment Upcoming Encounters Date Type Department Care Team (Late st Contact Info) Description 07/23/2025 3:15 PM EST Office Visit [facility] MED[facility]INE [address] [place] [address] Lolis Gastelum MD [address] [place] [address] Health Maintenance Due Date Last Done Comments CT Colonography 1955 FIT DNA/Cologuard 1955 FIT 1955 FOBT 1955 Sigmoidoscopy 1955 Hepatitis C Screening 1974 Zoster Vaccines (2 of 3) 09/23/2017 07/29/2017 Eye Exam 03/31/2023 03/31/2022 Colonoscopy 06/10/2024 06/10/2019 Colorectal Cancer Screening 06/10/2024 COVID-19 Vaccine ( season) 2025 08/23/2023, 03/09/2022, 05/01/2021, Additional history exists Diabetes: Hemoglobin A1C 08/01/2025 025, 01/31/2025, 04/10/2024, Additional history exists Mammogram 11/02/2025 11/02/2024, 07/02, 07/09/2022, Additional history exists Lipid Panel 12/19/2025 12/19/2024, 10/2023, 06/14/2022, Additional history exists Depression Monitoring 12/23/2025 06/25/2025, 025 Alcohol/Substance Use Screening 05/01/2026 05/01/2025 Diabetes: Foot Exam 05/01/2026 05/01/2025, SDOH Screening 05/01/2026 05/01/2025 Tobacco Screening 06/25/2026 06/25/2025 DTaP/Tdap/Td Vaccines (3 - Td or Tdap) [...] on patient's age to complete this topic Goals Goal Patient Goal Type Associated Problems [...] Patient has chronic kidney disease No Gavi Tillamn MA Weekly blood pressure task Care Plan [...] blood pressure task No Katy Serrato, [place] Weekly blood pressure task Care Plan Weekly blood pressure task No Katy Serrato RN Patient has chronic kidney disease Care [...] chronic kidney disease No Jose Hong LMHC Procedures Procedure Name Priority Date/Time Associated Diagnosis Comments TSH W/REFLEX TO FT4 Routine 06/25/2025 1 0:28 AM EST VITAMIN D,25-OH,TOTAL,IA Routine 06/25/2025 10:28 AM EST Other fatigue T4, FREE Routine 06/25/2025 10:28 AM EST Other fatigue TSH Routine 06/25/2025 10:28 AM EST Other fatigue COMPREHENSIVE METABOLIC PANEL Routine 06/25/2025 10:28 AM EST Other fatigue CBC WITH AUTO DIFFERENTIAL Routine 06/25/2025 10:28 AM EST Other fatigue BD DEXA AXIAL Routine 05/09/2025 9:35 AM EDT Osteoporosis screening Postmenopausal POCT GLYCOSYLATED HEMOGLOBIN (HGB A1C) Routine 05/01/2025 9:59 AM EDT Type 2 diabetes mellitus without complication, without long-term current use of insulin (HCC) POCT GLUCOSE Routine 05/01/2025 9:58 AM EDT Type 2 diabetes mellitus without complication, without long-term current use of insulin (HCC) LIPID PANEL WITH REFLEX TO DIRECT LDL Routine 12/19/2024 11:00 AM EDT Type 2 diabetes mellitus without complication, without long-term current use of insulin ([facility]/HCC) BI MAMMOGRAM SCREENING TOMOSYNTHESIS BILATERAL Routine 11/02/2024 9:16 AM EDT DIABETES EYE EXAM Routine 03/31/2022 COLONOSCOPY Routine 06/10/2019 from Last 3 Months or Most Recently Relevant to Health Maintenance Results * Vitamin D, 25-Hydroxy, Total, Immunoassay (06/25/2025 10:28 AM EST) Pathologist [facility] Vitamin D 25-OH Total 39.8 >30 ng/mL [facility] Comment: Health Based Reference Values*< 20 ng/mL [id number] ng/mL Insufficient> 30 ng/mL Sufficient*Live RAMAN. N [...] ORDERAB LES Final Result Performing Organization Address [facility] Co de Phone Number [facility] [address] [place] [address] [phone] * TSH with Reflex to Free T4 (06/25/2025 10:28 AM EST) TSH reflex Free T4 0.69 0.32 - 4.0 uIU/mL [facility] 06/25/2025 10:2 8 AM EST 06/25/2025 11:38 AM EST us Lolis Gastelum MD LAB BLOOD ORDERABLES Final Resul t Performing Organization Address [facility] Co de Phone Number [facility] [address] [place] [phone] * (ABNORMAL) CBC auto differential (06/25/2025 10:28 AM EST) White Blood Count 6.2 4.8 - 10.8 X10*3/uL [facility] Red Blood Count 5.11 4.20 - 5.50 X10*6/uL [facility] Hemoglobin 12.4 12.0 - 16.0 g/dl [facility] Hematocrit 40.7 37.0 - 47.0 % [facility] Mean Corpuscular Volume 79.6(L) 80.0 - 98.0 fL [facility] Mean Corpuscular Hemoglobin 24.3(L) 27.0 - 33.0 pg [facility] Mean Corpuscular HGB Conc 30.5(L) 31.0 - 35.0 g/dl [facility] Red Cell Distribution Width 14.6 11.0 - 16.0 % [facility] Platelet Count 278 160 - 400 X10*3/uL [facility] Mean Platelet Volume 10.2 9.4 - 12.3 fL [facility] Neutrophils Percent Auto 52.7 45 - 73 % [facility] Imm Gran Pct Auto 0.2 0.0 - 0.4 % [facility] Lymphocytes Percent Auto 38.4 20 - 40 % [facility] Monocytes Percent Auto 6.5 2 - 11 % [facility] Eosinophils Percent Auto 1.6 0 - 4 % [facility] Basophils Percent Auto 0.6 0 - 2 % [facility] NRBC Pct Auto 0.0 0.0 - 0.2 /100WBC [facility] Neutrophils Absolute Auto 3.3 2.0 - 8.3 x10*3/uL [facility] Imm Gran Abs Auto 0.01 0.00 - 0.03 X10*3/uL [facility] Lymphocytes Absolute Auto 2.4 1.2 - 4.9 X10*3/uL [facility] Monocytes Absolute Auto 0.4 0.1 - 1.2 X10*3/uL [facility] Eosinophils Absolute Auto 0.1 0.0 - 0.4 X10*3/uL [facility] Basophils Absolute Auto 0.0 0.0 - 0.2 X10*3/uL [facility] NRBC Abs Auto 0.000 0.0 - 0.012 X10*3/uL [facility] Blood Venous blood specimen / Unknown 06/25/2025 10:28 AM EST 06/25/2025 11:38 AM EST us Lizzette Robert MD LAB BLOOD ORDERAB LES Final Result Performing Organization Address [facility]/ZIP Co de Phone Number [facility] [address] [place] [phone] * TSH (06/25/2025 10:28 AM EST) Pathologist [facility] Thyroid Stimulating Hormone 0.67 0.32 - 4.0 uIU/mL [facility] Comment:TSH 3rd Generation ( [facility]) Blood Venous blood specimen / Unknown 06/25/2025 10:28 AM EST 06/25/2025 11:38 AM EST us Lizzette Robert MD LAB BLOOD ORDERAB LES Final Result Performing Organization Address [facility] Co de Phone Number [facility] [address] [place] [phone] * T4, Free (06/25/2025 10:28 AM EST) [facility] Free T4 (Free Thyroxine) 1.18 0.71 - 1.85 ng/dL [facility] Blood Venous blood specimen / Unknown 06/25/2025 10:28 AM EST 06/25/2025 11:38 AM EST us Lizzette Robert MD LAB BLOOD ORDERAB LES Final Result Performing Organization Address [facility] Co de Phone Number [facility] [address] [place] [phone] * (ABNORMAL) Comprehensive Metabolic Panel (06/25/2025 10:28 AM EST) Pathologist [facility] Sodium 140 135 - 145 mmol/L [facility] Potassium 3.9 3.3 - 5.1 mmol/L [facility] Chloride 109(H) 96 - 108 mmol/L [facility] Carbon Dioxide 24 22 - 29 mmol/L [facility] Anion Gap 11(L) 12 - 20 [facility] Urea Nitrogen (BUN) 19(H) 9 - 16 mg/dL [facility] Creatinine, Serum 0.99 0.5 - 1.4 mg/dL [facility] Estimated Glomerular Filt Rate 56 [facility] Comment:Chronic Kidney Disea se: Estimated GFR < 60 mL/min/1.63n5Iccjyh Kidney Disease: Estimated GFR < 15 mL/min/1.73m2 Glucose 144(H) 60 - 115 mg/dL [facility] Calcium 9.4 8.4 - 10.2 mg/dL [facility] Bilirubin, Total 0.3 0.0 - 1.0 mg/dL [facility] Aspartate Amino Transferase 23 5 - 31 U/L [facility] Alanine Aminotransferase 20 0 - 31 U/L [facility] Total Protein 7.2 6.5 - 8.0 g/dL [facility] Albumin Level 4.4 3.5 - 5.0 g/dL [facility] Alkaline Phosphatase 64 39 - 117 U/L [facility] Blood Venous blood specimen / Unknown 06/25/2025 10:28 AM EST 06/25/2025 11:38 AM EST us Lizzette Robert MD LAB BLOOD ORDERAB LES Final Result [facility] [address] [place] [phone] * BD DEXA Axial (05/09/2025 9:35 AM EDT) Anatomical Region Laterality Modality Body Radiographic Sophie ging 05/09/2025 9:35 AM EDT Narrative 05/09/2025 10:02 AM EDT [facility] [address] [place] [address] Mammography Report Signed Patient: Lotus Garza MR#: [id number] 4 : 1955 Acct:[id number] Age/Sex: 69 / F ADM Date: 05/09/25 Loc: [facility] Attending Dr: Lolis Gastelum MD Ordering Physician: Lolis Gastelum MD Results: Date of Service: 05/09/25 Follow Up: Procedure(s): XR DEXA axial skeleton Accession Number(s): [id number] cc: Lolis Gastelum MD Reason For Exam: postmenopausal, osteoporosis screening EXAMINATION: DXA BONE DENSITY AXIAL HISTORY: postmenopausal, osteoporosis screening TECHNIQUE: Liquavista Dual energy absorptiometry (DEXA) of the lumbar [...] is a trademark of the [employer]'s [employer] Met[employer] Disease, a World Health Organization (WHO) Collaborating Center. Electronically signed by: Eddy Cm MD 05/09/2025 09:59 AM EDT RP Dictated By: Eddy Cm MD Signed By: <Electronically signed by Eddy Cm MD in OV> 05/09/2559 DD/ 4 TD/TT: 05/09/25954 Marker Shipments: Procedure Note Donotuseinterpreter, Image - 05/09/20[facility] [address] [place] [address] Mammography Report Signed Patient: Lotus Garza#: [id number] 4 : 7Acct:[id number] Age/Sex: 69 / FADM Date: 05/09/25 Loc: LANDRY Attending Dr: Lolis Gastelum MD Ordering Physician: Lolis Gastelum MDResults: Date of Service: 05/09/25Follow Up: Procedure(s): XR DEXA axial skeleton Accession Number(s): [id number] cc: Lolis Gastelum MD Reason For Exam: postmenopausal, osteoporosis screening EXAMINATION: DXA BONE DENSITY AXIAL HISTORY: postmenopausal, osteoporosis screening TECHNIQUE: Liquavista Dual energy absorptiometry (DEXA) of the lumbar [...] of the [employer] Disease, a World Health Organization (WHO) Collaborating Center. Electronically signed by: Eddy Cm MD 05/09/2025 09:59 AM EDT Dictated By: Eddy Cm MD Signed By: <Electronically signed by Eddy Cm MD in OV> 05/09/25958 DD/ 4 TD/TT: 05/09/25954 Marker Shipments: us Lolis Gastelum MD IMG DXA PROCEDURES Final Result * (ABNORMAL) POCT glycosylated hemoglobin (Hgb A1c) (05/01/2025 9:59 AM EDT) [facility] Hemoglobin A1C 7.3(A) 4.0 - 5.7 % QC Media Lot # [id number] Lot# Expiration Date ,[id number] Blood Capillary blood specimen / Unknown 05/01/2025 9:59 AM EDT us Lolis Gastelum MD POINT OF CARE TEST ENTER/EDIT OR DERABLES Final Result * POCT glucose manually resulted (05/01/2025 9:58 AM EDT) Glucose Blood, POC 177 60 - 200 mg/dL [employer] Lot # [id number] Lot# Expiration Date [id number] Blood Capillary blood specimen / Unknown 05/01/2025 9:58 AM EDT us Lolis Gastelum MD POINT OF CARE TEST ENTER/EDIT OR DERABLES Final Result * Lipid Panel with Reflex to Direct LDL (12/19/2024 11:00 AM EDT) Triglycerides 93 <150 mg/dL [facility] Comment:Desirable Triglyceri de: less than 150 mg/dLBorderline High Triglyceride 150-199 mg/dLHigh Triglyceride: 200-499 mg/dLVery High Triglyceride: greater than or equal to 5OO mg/dL Cholesterol 175 <200 mg/dL [facility] Comment:Desirable Cholestero l: less than 200 mg/dLBorderline High Cholesterol: 200-239 mg/dLHigh Cholesterol: greater than 239 mg/dL LDL Cholesterol Calculated 88 <100 mg/dL [facility] Comment:Desirable LDL: less than 100 mg/dLNear Optimal/Above Optimal LDL: 110- 129 mg/dLBorderline High LDL: 130-159 mg/dLHigh LDL: 160-189 mg/dLVery High LDL: greater than or equal to 190 mg/dL HDL Cholesterol 69 >40 mg/dL [facility] Comment:Desirable HDL: great er than 40 mg/dL Note: This HDL assay may give artificially low results in patients with liver disease. Blood 12/19/2024 11:0 0 AM EDT 12/19/2024 11:00 AM EDT us Lolis Gastelum MD LAB BLOOD ORDERABLES Final Resul t [facility] [address] [place] [phone] * BI Mammogram Screening Tomosynthesis Bilateral (11/02/2024 9:16 AM EDT) Anatomical Region Laterality Modality Breast Bilateral Mammography 11/02/2024 9:16 AM EDT Narrative 11/07/2024 1:06 PM EDT [address] [place], [place] [address] Mammography Report Signed Patient: Lotus Garza MR#: [id number] 4 : 1955 Acct:[id number] Age/Sex: 68 / F ADM Date: 11/02/24 Loc: HO.MAMMO Attending Dr: Lolis Gastelum MD Ordering Physician: Lolis Gastelum MD Results: 1Negative Date of Service: 11/02/24 Follow Up: 1 Year From Orig inal Mammogram Procedure(s): MM tomosynthesis screening BI Accession Number(s): [id number] cc: Lolis Gastelum MD EXAMINATION: MM SCREENING [...] 11/07/24 1303 DD/ 0916 TD/TT: 11/02/24 0933 Marker Shipments: Procedure Note Donotuseinterpreter, Image - 11/07/2024 [facility] [address] [place] [address] Mammography Report Signed Patient: Lotus GarzaMR#: [id number] 4 : 7Acct:[id number] Age/Sex: 68 / FADM Date: 11/02/24 Loc: HO.MAMMO Attending Dr: Lolis Gastelum MD Ordering Physician: Lolis Gastelum MDResults: 1Negative Date of Service: 11/02/24Follow Up: 1 Year From Orig ina Mammogram Procedure(s): MM tomosynthesis screening BI Accession Number(s): [id number] cc: Lolis Gastelum MD EXAMINATION: MM SCREENING [...] 11/07/24 1303 DD/ 0916 TD/TT: 11/02/24 0933 Marker Shipments: Lolis Gastelum MD IMG BI PROCEDURES Final Result * Diabetes Eye Exam (03/31/2022) Eye Exam Normal Normal [place] Unassigned Pcp HEALTH MAINTENANCE Final Result * Colonoscopy (06/10/2019) Colonoscopy Normal Normal Lolis Gastelum MD HEALTH MAINTENANCE Edited Result - Final from Last 3 Months or Most Recently Relevant to Health Maintenance Additional Health Concerns Active Problems Noted Date [...] 06/25/2025 Patient has chronic kidney disease 06/25/2025 Insurance [employer] DUAL COMPLETE * Guarantor: Lotus Garza Account Type Relation to Patient Date of Phone Billing Address Personal/Family Self [address] Care Teams Civilian Technician Relationship Specialty Start Date End Date Lolis Gastelum MD [address] [place] [phone] PCP - General Family Medicine 08/01/18
--- OUTSIDE RECORDS SUMMARY | 2025-06-25 12:48 | XMS_ITS | Encounter Summary ---
Author Organization [employer] Address [address] [facility] 7t [place] [address] Care Team Providers Care Coffee Host Name Role Phone Lolis Gastelum MD Primary Care Provider [phone] Encounter Details Date Type Department Care Team ([facility] st Contact Info) Description 06/20/2025 Telephone [facility] MED[facility]INE [address] [place], [place] [phone] Lolis Gastelum MD [address] [place], [place] [phone] Social History Tobacco Use Types Packs/Day Years [...] encounter Miscellaneous Notes * Telephone Encounter - Katy Serrato RN - 06/20/2025 9:29 AM EST T/C to pt via [employer] F[employer] Ceo & President [employer] #[phone]. Advised of cancelled appointment today due to providerout. Pt declines appointment offered this afternoon with Brett team provider. States she needs a morning appointment. Agrees to appointment with Green team provider 06/25/25. documented in this encounter Plan of Treatment Upcoming Encounters Date Type Department Care Team (Late st Contact Info) Description 07/23/2025 3:15 PM EST Office Visit [facility] [address] [place] [phone] Lolis Gastelum MD [address] [place] [address] documented as of this encounter Goals Goal [...] chronic kidney disease No Katy Serrato RN Patient has chronic kidney disease Care Plan Patient has chronic kidney disease No Katy Serrato RN documented as of this encounter Visit Diagnoses [...] 06/20/2025 Patient has chronic kidney disease 06/20/2025 Assessment Noted Time PHQ-9 Depression Total Score: 15 025 10:38 AM EDT documented as of this encounter Care Teams Coffee Host Relationship Specialty Start Date End Date Lolis Gastelum MD [address] [place] [phone] PCP - General Family Medicine 08/01/18 documented as of this encounter
--- OUTSIDE RECORDS SUMMARY | 2025-06-25 12:48 | XMS_ITS | Encounter Summary ---
Author Organization [employer] Address [address] [facility] 7t [place] [address] Care Team Providers Care Microfilm Equipment Inspector Name Role Phone Lolis Gastelum MD Primary Care Provider [phone] Reason for Visit * Reason Onset Date Comments chart prep 06/24/2025 Encounter Details Date Type Department Care Team ([facility] st Contact Info) Description 06/24/2025 Telephone [facility] MEDICINE [address] [place], [place] [phone] Lolis Gastelum MD [address] [place], [place] [phone] chart prep Social History Tobacco Use Types Packs/Day Years [...] encounter Miscellaneous Notes * Telephone Encounter - Irma Decker MA - 06/24/2025 12:47 PM EST Chart Prep Labs: done Images: done Screenings: Colonoscopy and Eye Exam Vaccines due: Updated Referrals: Grastroenterology 08/26/25 2:00 PM [facility] Gastroenterology Osito Truong MD Endocrinology [place] 07/04/25 9:00 AM [facility] Overdue care gaps: Glucose documented in this encounter Plan of Treatment Upcoming Encounters Date Type Department Care Team (Late st Contact Info) Description 07/23/2025 3:15 PM EST Office Visit [facility] MED[facility] [address] [place] [phone] Lolis Gastelum MD [address] [place] [address] documented as of this encounter Goals Goal [...] Care Plan Patient has chronic kidney disease Irma Whitaker MA documented as of this encounter Visit Diagnoses [...] 06/24/2025 Patient has chronic kidney disease 06/24/2025 Assessment Noted Time PHQ-9 Depression Total Score: 15 025 10:38 AM EDT documented as of this encounter Care Teams Microfilm Equipment Inspector Relationship Specialty Start Date End Date Lolis Gastelum MD [address] [place] [phone] PCP - General Family Medicine 08/01/18 documented as of this encounter
== END 2025-06-25 10:21 | disposition home or self-care (01) ==
LOC: HO.HHCL 10:20
PROVIDERS: PCP Family Medicine; Referring Provider Student in an Organized Health Care Education/Training Program; Visit Provider Family Medicine
DX: I10 Essential (primary) hypertension (principal); E03.9 Hypothyroidism, unspecified; R53.83 Other fatigue; Z13.21 Encounter for screening for nutritional disorder
CPT/HCPCS: 36415; 80053; 82306; 84439; 84443; 85025

== ENCOUNTER 2025-07-04 09:02 | Outpatient (AMB) | payer OTHER, MEDICAID, SELFPAY ==
[2025-07-04 09:05] VITALS: BP 124/72; PULSE 75; O2SAT 100; BMI 31.5
--- NOTE | 2025-07-04 09:05 | A.OFFVIS_ITS ---
Vital Signs 07/04/25 09:05 Height 5 ft 1 in Weight 166 lb 10.711 oz BMI 31.5 BP 124/72 Blood Pressure Location Lt brachial Position Sitting Pulse 75 Pulse Source Pulse Oximeter Pulse Oximetry (%) 100 Oxygen Delivery Method Room Air Intake Visit Reasons: osteoporosis Intake Note: NEW Patient presents today to establish care for Osteoporosis: No acute complaints reported at this time. ~Date of last Bone Density Screenin05/09/2025 Sports Therapist Required: No Accompanied by: Daughter Allergies atropine () Allergy (Unknown, Verified 07/04/25 09:10) Hives belladonna alkaloids (From ) Allergy (Unknown, Verified 07/04/25 09:10) INVOLUNTARY SPASMS hyoscyamine () Allergy (Unknown, Verified 07/04/25 09:10) hives phenobarbital (From ) Allergy (Unknown, Verified 07/04/25 09:10) INVOLUNTARY SPASMS scopolamine () Allergy (Unknown, Verified 07/04/25 09:10) hives From Allergy (Unknown, Uncoded 07/04/25 09:10) INVOLUNTARY SPASMS Medication List - Last Reconciled 07/04/25 by Piero Carreon MD amitriptyline 25 mg PO BEDTIME atorvastatin 80 mg PO DAILY xpxmpax-bww-bbq J5-xxwlqi-Wy tabs PO dulaglutide (Trulicity) mg subcut empagliflozin (Jardiance) 10 mg PO DAILY levothyroxine 100 mcg PO DAILY lisinopril 2.5 mg PO DAILY magnesium oxide 400 mg PO DAILY meclizine 25 mg PO TID PRN metformin ER 1,000 mg PO BID omeprazole 40 mg PO DAILY sertraline 100 mg PO BID sumatriptan succinate 50 mg PO HPI Comments Details: Osteoporosis Initial Evaluation Template Reason for visit: Osteoporosis / Low bone density / Fragility fracture evaluation HPI PHM of DM, hypercholesterolemia, HTN, anemia, h/o gastric bypass in 2012, seen for evaluation and management of osteoporosis. She reports bone pains in the hips and knees. LMP: She has histerectomy around 23 years ago No History of fragility fractures Symptoms: bone pain, height loss (around 2 inches in 5 years), spinal deformity (mild kyphosis of cervical spinal), back pain, wrist/hip pain without trauma Risk factors: family history- Father, sister. No known fractures. No known hyperperathyroidism or calcium problems No low body weight, She has had glucocorticoid injections every 3 months. Smoking 3-4 cig/day, stopped 25 years ago No alcohol Calcium intake: 3-4 glasses per day, no cheese (exacerbate migraine). Eats green leafy veggies almost every day. Vit D/Ca takes (unknown dose) has started taking it 1 months ago. No previous vitamin D Sedentary- multiples activities at home. Fall risk: balance problems Meds (steroids, hormones, immunotherapy, antipsychotics, ppi, lithium): Takes Omeprazole 40mg BID Any contraindications/safety concerns for therapy (dental health, renal function, GI disease): No dental extractions or implants scheduled. No history of kidney stone. Physical exam: General: Well appearing. NAD. Not Cushingoid or Acromegalic Neck/Thyroid: Thyroid not palpable, no nodules. CV: RRR, no murmur. No edema. Resp:Lungs clear to auscultation bilaterally Abdomen: Soft, nontender. nondistended Extremities/Neuro: No weakness or tremor of outstretched hands Laboratory Tests 06/25/25 10:28 Sodium 140 Potassium 3.9 BUN 19 H Creatinine 0.99 Estimated GFR 56 Calcium 9.4 AST 23 ALT 20 Alkaline Phosphatase 64 Total Protein 7.2 Albumin 4.4 25-OH Vitamin D Total 39.8 TSH 0.69 Free T4 1.18 Imaging; DEXA 05/09/2025 COMPARISON: Comparison is made with the prior examination dated 10/19/2011. FINDINGS: The bone mineral density of the lumbar spine is 0.882 g/cm2, corresponding to a T-score of -2.5, and a Z-score of -1.2. This is indicative of osteoporosis. This represents a BMD change of -6.4% compared to the prior exam. This is statistically significant. The bone mineral density of the left total hip is 0.774 g/cm2, corresponding to a T-score of -1.9, and a Z-score of -0.7. This is indicative of osteopenia. This represents a BMD change of -22.5% compared to the prior exam. This is statistically significant. The bone mineral density of the left femoral neck is 0.741 g/cm2, corresponding to a T-score of -2.1, and a Z-score of -0.7. This is indicative of osteopenia. This represents a BMD change of -22.7% compared to the prior exam. FRACTURE RISK: The FRAX index suggests a ten year probability of major osteoporotic fracture of 11.0%, and of hip fracture 2.4%. IMPRESSION: Based on bone mineral density, and according to World Health Organization (WHO) criteria, the diagnosis is consistent with osteoporosis. [facility] Medical History (Updated 07/04/25 @ 09:54 by Piero Carreon MD) Other and unspecified hyperlipidemia Type 2 diabetes mellitus with unspecified complications Surgical History (Updated 05/21/25 @ 11:04 by Ceasar Gonzalez CNA) H/O tubal ligation H/O: hysterectomy H/O gastric bypass Family History (Updated 05/21/25 @ 11:06 by Ceasar Gonzalez CNA) Father Heart problem History of high blood pressure Mother Heart problem History of high blood pressure Heart block Social History (Updated 05/21/25 @ 11:25 by Brijesh Rod MD) Alcohol intake: never Patient Tobacco Use Status: Never used Tobacco Current occupational status: disabled 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5), likely age related, but long PPI use could also be a factor. She had not had any traumatic or pathological fracture. She already had most of the workup indicated normal calcium, normal thyroid function, normal vitamin-D, normal liver function. Only parathyroid evaluation is required before starting therapy. Her calcium and vitamin-D intake seems appropriate. She does not have any recent or planned dental extraction or implant. Plan -Labs for initial evaluation: Plan to conduct serum calcium, parathyroid hormone (PTH), renal function tests, and 24-hour urine calcium/creatinine. Recommend performing these tests at a different facility due to issues with current lab's accuracy. - Lifestyle & Risk Modification: - Encourage adequate calcium and vitamin D intake through diet and supplements. - Promote weight-bearing exercises. - Emphasize fall prevention measures. - Discuss dietary calcium sources, caution with cheese due to migraines. - Treatment planning: Await lab results to rule out secondary causes such as hyperparathyroidism before initiating osteoporosis treatment. Plan 50 minutes spent reviewing previous records, labs, imaging, education and docum enting in the chart Orders: Orders Creatinine, 24 Hr Group Today M81.0 - Age-related osteoporosis without current pathological fracture Calcium, 24 Hr Ur Today M81.0 - Age-related osteoporosis without current pathological fracture Comprehensive Met. Panel Today M81.0 - Age-related osteoporosis without current pathological fracture Patient Instructions: Please have blood/urine work up done at [facility] on [address], [address] [place] [address] Por favor, real?cese los an?lisis de rudolph y/o orina en [facility], en cualquiera de las siguientes direcciones: [address], [address] [place] [address] Collecte la orina satish se muestra abajo, y el harini que entregue la orina se realiza los analisis de rudolph. 24-Hour Urine Calcium Collection Instructions Purpose: This test measures the amount of calcium excreted in your urine over a 24-hour period. It helps evaluate calcium metabolism and diagnose certain conditions. Supplies Needed: 24-hour urine collection container (provided by the lab or clinic) Urine hat or collection device (optional, for easier collection) Written instructions (this sheet) Instructions: Start the Collection: Choose a day when you can be at home or have easy access to a bathroom. Upon waking up on the first day, urinate and discard this first morning urine. Do not collect this sample. Note the exact time?this is your start time. Collect All Urine: For the next 24 hours, collect all urine you pass into the provided container. Each time you urinate, collect it in a clean container and transfer it to the 24-hour collection jug. Store the collection container in a cool place, preferably in a refrigerator or on ice, during the collection period. Finish the Collection: Exactly 24 hours after your start time, urinate one last time and add this urine to the container. This completes the collection. After Collection: Ensure the lid is tightly closed. Label the container with your name, date, and start/end times. Return the container to the laboratory or your physician?s office as soon as possible after completion. Important Tips: Do not miss any urine during the 24-hour period. If you do, the test may need to be repeated. Do not allow toilet paper, stool, or other materials to get into the urine sample. Continue your usual diet unless instructed otherwise. Some tests may require you to avoid certain foods or medications?follow any additional instructions provided by your physician. Coding Level of Care Code New Pt Level 4 (48447) Complex visit Add On G2211 Diagnoses Age-related osteoporosis without current pathological fracture M81.0 Presence of current pathological fracture: without current pathological fracture
--- OUTSIDE RECORDS SUMMARY | 2025-07-04 09:47 | XMS_ITS | Clinical Summary ---
Author Organization [address] [facility] Address [address] [place] [address] Phone Care Team Providers Care Gas And Oil Servicer Name Role Phone Lolis Gastelum MD Primary Care Provider [phone] Allergies Active Allergy Reactions Criticality Noted Date Comments Atropine Hives 05/23/2025 Eslskvths-Hivzcc-Idtpzjni-Scop 03/13 Hyoscyamine Unknown 05/23/2025 Phenobarbital Unknown 05/23/2025 [...] Description 05/23/2025 11:40 AM EDT Office Visit [address] [place] [address] Pio Parker MD Migraine without [...] Description 10/29/2025 9:30 AM EDT Office Visit [facility] [address] [place] [address] Purvi Watt PA [address] [place] [phone] Health Maintenance Due Date Last Done [...] ID:Not on file Type:Not on file Address: [facility] ATTN:CLAIM[employer] [address] [place] [address] [employer] Care Teams Gas And Oil Servicer Relationship Specialty Start Date End Date Lolis Gastelum MD [address] [place] [phone] PCP - General Family Medicine 02/15/25
--- OUTSIDE RECORDS SUMMARY | 2025-07-04 09:47 | XMS_ITS | Encounter Summary ---
Author Organization [facility] Address [address] [facility] [address] [place] [address] Care Team Providers Care Collection Development Librarian Name Role Phone Lolis Gastelum MD Primary Care Provider [phone] Encounter Details Date Type Department Care Team ([facility] st Contact Info) Description 07/20/2023 Abstract [facility] [address] [place], [place] [phone] Lolis Gastelum MD [address] [place], [place] [phone] Social History Tobacco Use Types Packs/Day Years [...] Description 07/23/2025 3:15 PM EST Office Visit [facility] [address] [place], [place] [phone] Lolis Gastelum MD [address] [place], [place] [phone] documented as of this encounter Procedures Procedure [...] documented as of this encounter Care Teams Collection Development Librarian Relationship Specialty Start Date End Date Lolis Gastelum MD [address] [place], [place] [phone] PCP - General Family Medicine 08/01/18 documented as of this encounter
--- OUTSIDE RECORDS SUMMARY | 2025-07-04 09:48 | XMS_ITS | Clinical Summary ---
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 180 tablet 3 5 Active riboflavin (Vitamin B-2) 400 MG tablet Take 400 mg by mouth Once per day. Active magnesium oxide (Mag-Ox) 400 MG tablet Take 400 mg by mouth Once per day. Active Active Problems Problem Noted Date Diagnosed Date Fatigue 06/28/2025 Assessment & Plan (06/28/2025 3:24 PM EST): Other fatigue: -05/2025 Capillary Hb1Ac 7.3 ,CBG 173 -12/2024 TSH wnl, Hb 11.8 <---12.3, MCV 79.4,basic metabolic panel wnl -MM 2024 normal -colonoscopy per PCP'note 2018 and had tubular adenoma. Patient states she was supposed to have another colonoscopy in 5 years. --referred to GI in 05/2025 By PCP - Fatigue may be associated with daily amitriptyline use, which is known to cause fatigue as a side effect. Cardiac etiology to be ruled out given association with palpitations. Anemia, thyroid dysfunction, vitamin D deficiency, hepatic and renal causes also to be evaluated. - Ordered laboratory tests including complete blood count, thyroid function, vitamin D, liver and renal panels. Recommended blood draw as soon as possible. Cardiology evaluation ongoing with Holter monitor and echocardiogram scheduled. Seen by cards in 05/2025 Continue monitoring for cardiac symptoms. Will follow up with results and reassess in four weeks w PCP -pt will need to follow w PCP if need any new pap smear if history of abnormal ? -can not see records at this time Imbalance 06/26/2025 Weakness of left lower extremity 06/26/2025 Assessment & Plan (06/28/2025 3:23 PM EST): Left leg weakness: -MR Brain w/o Contrast 03/2025 No acute infarct, mass, or intracranial hemorrhage. Minimal nonspecific T2 hyperintense foci throughout the supratentorial white matter, predominantly frontal and subcortical in distribution. Pattern can be seen in the setting of chronic migraine or chronic small vessel ischemic change. - Progressive left leg weakness over several months, not associated with acute stroke or focal neurological deficit on examination. MRI of the brain previously performed, no infarct, mass, or hemorrhage. Neuropathic etiology to be evaluated. - Ordered EMG/NCS to assess for peripheral nerve involvement. Ordered MRI of the spine. -Prescribed rolling walker and cane for mobility assistance. Scheduled follow-up with primary care physician in four weeks. -advised to f up w neurologist as well -if no findings in images will need consdier Brain MRI w contrast YESSY (generalized anxiety disorder) 06/25/2025 Anxiety and depression 05/09/2025 Assessment & Plan (06/28/2025 3:23 PM EST): Depression: - Depression under current management with medication. Patient expressed interest in therapy. - Referred to today -seen in office by Jose Kemp who will refer pt for outpt therapist Assessment & Plan (05/09/2025 12:01 PM EDT): [...] - thigh muscle exercise - evaluated by [facility], received steroid injection in October 2024 Assessment & Plan (04/10/2024 2:00 PM EDT): - apply diclofenac topical and take APAP 1g q8h prn - thigh muscle exercise - evaluated by [facility], received steroid injection Assessment & Plan (07/16/2023 5:18 AM EST): - apply diclofenac topical and take APAP 1g q8h prn - thigh muscle exercise - evaluated by [facility], received steroid injection Assessment & Plan [...] (02/14/2025 6:52 AM EDT): - following with [facility] orthopedist, received cortisone injection to left knee [...] medications - Patient will be traveling to [place] in winter, and it seemed to improve [...] Up to date per pt (received at [facility]) Follow up in 3-4 mo. Assessment [...] Up to date per pt (received at [facility]) Follow up in 3-4 mo. Assessment [...] Up to date per pt (received at [facility]) Follow up in 3-4 mo. Assessment [...] Up to date per pt (received at [facility]) Follow up in 3-4 mo. Assessment [...] Up to date per pt (received at [facility]) Follow up in 3-4 mo. Assessment [...] Up to date per pt (received at [facility]) Follow up in 3 mo. Dyslipidemia [...] Description 06/25/2025 9:00 AM EST Office [address] [facility] [place] [address] Lizzette Costa MD Other fatigue (Primary Dx); Left leg weakness; Imbalance; Weakness of left lower extremity; Anxiety and depression 06/25/2025 Results Follow-Up [facility] [place] [place] [address] Lizzette Costa MD CBC auto differential, Comprehensive Metabolic Panel, TSH, Additional followed-up results: 2 06/25/[address] [facility] [place] [address] Lolis Gastelum MD 06/25/2025 Travel 06/24/2025 Telephone [facility] [place] [address] Lolis Gastelum MD chart prep 06/20/2025 Telephone [facility] [place] [address] Lolis Gastelum MD 06/19/2025 Telephone [facility] [address] [place] [address] Lolis Gastelum MD Chart Prep 06/18/2025 Telephone [facility] [place] [address] Lolis Gastelum MD Nurse Triage 05/09/[address] [facility] [place] [address] Lolis Gastelum MD Other osteoporosis without current pathological fracture (Primary Dx) 05/09/2025 Results Follow-Up [facility] [address] [place] [phone] Lolis Gastelum MD BD DEXA Axial 05/01/2025 9:30 AM EDT Office Visit [address] [address] Lolis Gastelum MD Type 2 diabetes mellitus with stage 3a chronic kidney disease, without long-term current use of insulin (HCC) (Primary Dx); Type 2 diabetes mellitus without complication, without long-term current use of insulin (HCC); Encounter for immunization; Moderate episode of recurrent major depressive disorder (CMS/HCC) (HCC); Anxiety and depression; Tubular adenoma of colon; Acquired hypothyroidism; Vitamin D deficiency; Stage 3a chronic kidney disease (CMS/HCC) (HCC); Primary hypertension; Dyslipidemia; Mild cognitive impairment; Chronic nonintractable headache, unspecified headache type; Chronic migraine without aura without status migrainosus, not intractable 05/01/2025 Travel 04/30/[address] [address] Lolis Gastelum MD chart prep from Last [...] Description 07/23/2025 3:15 PM EST Office Visit [facility] [address] [place], [place] [phone] Lolis Gastelum MD [address] [place] [address] Health Maintenance Due Date Last Done Comments [...] Weekly blood pressure task No Jose Hong [facility] Patient has chronic kidney disease Care Plan Patient has chronic kidney disease No Jose Hong [facility] Patient has chronic kidney disease Care Plan Patient has chronic kidney disease No Jose Hong [facility] Weekly blood pressure task Care Plan Weekly blood pressure task No Lizzette Costa MD Weekly blood pressure task Care Plan Weekly blood pressure task No Lizzette Costa MD Patient has chronic kidney disease Care Plan Patient has chronic kidney disease No Lizzette Costa MD Patient has chronic kidney disease Care Plan Patient has chronic kidney disease No Lizzette Costa MD Procedures Procedure Name Priority Date/Time Associated Diagnosis [...] without long-term current use of insulin (CMS/HCC) BI MAMMOGRAM SCREENING TOMOSYNTHESIS BILATERAL Routine 11/02/2024 9:16 AM EDT HM DIABETES EYE EXAM Routine 03/31/2022 COLONOSCOPY Routine 06/10/2019 from Last 3 Months or Most Recently Relevant to Health Maintenance Results * Vitamin D, 25-Hydroxy, Total, Immunoassay (06/25/2025 10:28 AM EST) Vitamin D 25-OH Total 39.8 >30 ng/mL [facility] Comment: Health Based Reference Values*< 20 ng/mL [id number] ng/mL Insufficient> 30 ng/mL Sufficient*Live RAMAN. N [...] MD LAB BLOOD ORDERAB LES Final Result [facility] [address] [place] [phone] * TSH with Reflex to Free T4 (06/25/2025 10:28 AM EST) TSH reflex Free T4 0.69 0.32 - 4.0 uIU/mL [facility] 06/25/2025 10:2 8 AM EST 06/25/2025 11:38 AM EST us Lolis Gastelum MD LAB BLOOD ORDERABLES Final Resul t [facility] [address], [place] [phone] * (ABNORMAL) CBC auto differential (06/25/2025 10:28 AM EST) White Blood Count 6.2 4.8 - 10.8 X10*3/uL [facility] Red Blood Count 5.11 4.20 - 5.50 X10*6/uL [facility] Hemoglobin 12.4 12.0 - 16.0 g/dl [facility] Hematocrit 40.7 37.0 - 47.0 % [facility] Mean Corpuscular Volume 79.6(L) 80.0 - 98.0 fL [facility] Mean Corpuscular Hemoglobin 24.3(L) 27.0 - 33.0 pg [facility] Mean Corpuscular HGB Conc 30.5(L) 31.0 - 35.0 g/dl [facility] Red Cell Distribution Width 14.6 11.0 - 16.0 % [facility] Platelet Count 278 160 - 400 X10*3/uL [facility] Mean Platelet Volume 10.2 9.4 - 12.3 fL [facility] Neutrophils Percent Auto 52.7 45 - 73 % [facility] Imm Gran Pct Auto 0.2 0.0 - 0.4 % [facility] Lymphocytes Percent Auto 38.4 20 - 40 % [facility] Monocytes Percent Auto 6.5 2 - 11 % [facility] Eosinophils Percent Auto 1.6 0 - 4 % [facility] Basophils Percent Auto 0.6 0 - 2 % [facility] NRBC Pct Auto 0.0 0.0 - 0.2 /100WBC [facility] Neutrophils Absolute Auto 3.3 2.0 - 8.3 x10*3/uL [facility] Imm Gran Abs Auto 0.01 0.00 - 0.03 X10*3/uL [facility] Lymphocytes Absolute Auto 2.4 1.2 - 4.9 X10*3/uL [facility] Monocytes Absolute Auto 0.4 0.1 - 1.2 X10*3/uL [facility] Eosinophils Absolute Auto 0.1 0.0 - 0.4 X10*3/uL [facility] Basophils Absolute Auto 0.0 0.0 - 0.2 X10*3/uL [facility] NRBC Abs Auto 0.000 0.0 - 0.012 X10*3/uL [facility] Blood Venous blood specimen / Unknown 06/25/2025 10:28 AM EST 06/25/2025 11:38 AM EST Lizzette Robert MD LAB BLOOD ORDERAB LES Final Result Performing Organization Address City/[facility]/ZIP Co de Phone Number [facility] [address] [place] [phone] * TSH (06/25/2025 10:28 AM EST) Pathologist [facility] Thyroid Stimulating Hormone 0.67 0.32 - 4.0 uIU/mL [facility] Comment:TSH 3rd Generation ( [facility]) Blood Venous blood specimen / Unknown 06/25/2025 10:28 AM EST 06/25/2025 11:38 AM EST Lizzette Robert MD LAB BLOOD ORDERAB LES Final Result Performing Organization Address City/[facility]/ZIP Co de Phone Number [facility] [address] [place] [phone] * T4, Free (06/25/2025 10:28 AM EST) Free T4 (Free Thyroxine) 1.18 0.71 - 1.85 ng/dL [facility] Blood Venous blood specimen / Unknown 06/25/2025 10:28 AM EST 06/25/2025 11:38 AM EST us Lizzette Robert MD LAB BLOOD ORDERAB LES Final Result [facility] [address] [place] [phone] * (ABNORMAL) Comprehensive Metabolic Panel (06/25/2025 10:28 AM EST) Sodium 140 135 - 145 mmol/L [facility] Potassium 3.9 3.3 - 5.1 mmol/L [facility] Chloride 109(H) 96 - 108 mmol/L [facility] Carbon Dioxide 24 22 - 29 mmol/L [facility] Anion Gap 11(L) 12 - 20 [facility] Urea Nitrogen (BUN) 19(H) 9 - 16 mg/dL [facility] Creatinine, Serum 0.99 0.5 - 1.4 mg/dL [facility] Estimated Glomerular Filt Rate 56 [facility] Comment:Chronic Kidney Disea se: Estimated GFR < 60 mL/min/1.55y2Xrxtoe Kidney Disease: Estimated GFR < 15 mL/min/1.73m2 Glucose 144(H) 60 - 115 mg/dL [facility] Calcium 9.4 8.4 - 10.2 mg/dL [facility] Bilirubin, Total 0.3 0.0 - 1.0 mg/dL [facility] Aspartate Amino Transferase 23 5 - 31 U/L [facility] Alanine Aminotransferase 20 0 - 31 U/L [facility] Total Protein 7.2 6.5 - 8.0 g/dL [facility] Albumin Level 4.4 3.5 - 5.0 g/dL [facility] Alkaline Phosphatase 64 39 - 117 U/L [facility] Blood Venous blood specimen / Unknown 06/25/2025 10:28 AM EST 06/25/2025 11:38 AM EST us Lizzette Robert MD LAB BLOOD ORDERAB LES Final Result [facility] [address] [place] [phone] * BD DEXA Axial (05/09/2025 9:35 AM EDT) Anatomical Region Laterality Modality Body Radiographic Sophie ging 05/09/2025 9:35 AM EDT Narrative 05/09/2025 10:02 AM EDT [facility] [address] [place] [address] Mammography Report Signed Patient: Lotus Garza MR#: [id number] 4 : 1955 Acct:[id number] Age/Sex: 69 / F ADM Date: 05/09/25 Loc: [facility] Attending Dr: Lolis Gastelum MD Ordering Physician: Lolis Gastelum MD Results: Date of Service: 05/09/25 Follow Up: Procedure(s): XR DEXA axial skeleton Accession Number(s): [id number] cc: Lolis Gastelum MD Reason For Exam: postmenopausal, osteoporosis screening EXAMINATION: DXA BONE DENSITY AXIAL HISTORY: postmenopausal, osteoporosis screening TECHNIQUE: [employer] Dual energy absorptiometry (DEXA) of the lumbar [...] is a trademark of the [employer] [place] for Metabolic Bone Disease, a World Health Organization (WHO) Collaborating Center. Electronically signed by: Eddy Cm MD 05/09/2025 09:59 AM EDT Dictated By: Eddy Cm MD Signed By: <Electronically signed by Eddy Cm MD in OV> 05/09/25958 DD/ 4 TD/TT: 05/09/25954 Oil Operator: Procedure Note Donotuseinterpreter, Image - 05/09/2025 [place] [facility] [address] [place] [address] Mammography Report Signed Patient: Shantanu Garza#: [id number] 4 : 7Acct:[id number] Age/Sex: 69 / FADM Date: 05/09/25 Loc: LANDRY Attending Dr: Lolis Gastelum MD Ordering Physician: Lolis Gastelumesults: Date of Service: 05/09/25Follow Up: Procedure(s): XR DEXA axial skeleton Accession Number(s): [id number] cc: Lolis Gastelum MD Reason For Exam: postmenopausal, osteoporosis screening EXAMINATION: DXA BONE DENSITY AXIAL HISTORY: postmenopausal, osteoporosis screening TECHNIQUE: [employer] Dual energy absorptiometry (DEXA) of the lumbar [...] of the [employer] [place] for Metabolic Bone Disease, a World Health Organization (WHO) Collaborating Center. Electronically signed by: Eddy Cm MD 05/09/2025 09:59 AM EDT Dictated By: Eddy Cm MD Signed By: <Electronically signed by Eddy Cm MD in OV> 05/09/2559 DD/ 4 TD/TT: 05/09/25954 Oil Operator: Lolis Gastelum MD IMG DXA PROCEDURES Final Result * (ABNORMAL) POCT glycosylated hemoglobin (Hgb A1c) (05/01/2025 9:59 AM EDT) Hemoglobin A1C 7.3(A) 4.0 - 5.7 % QC Media Lot # [id number] Lot# Expiration Date [id number] Blood Capillary blood specimen / Unknown 05/01/2025 9:59 AM EDT Lolis Gastelum MD POINT OF CARE TEST ENTER/EDIT OR DERABLES Final Result * POCT glucose manually resulted (05/01/2025 9:58 AM EDT) Glucose Blood, POC 177 60 - 200 mg/dL [employer] Lot # [id number] Lot# Expiration Date 2390,333 Blood Capillary blood specimen / Unknown 05/01/2025 9:58 AM EDT Lolis Gastelum MD POINT OF CARE TEST ENTER/EDIT OR DERABLES Final Result * Lipid Panel with Reflex to Direct LDL (12/19/2024 11:00 AM EDT) Triglycerides 93 <150 mg/dL [facility] Comment:Desirable Triglyceri de: less than 150 mg/dLBorderline High Triglyceride 150-199 mg/dLHigh Triglyceride: 200-499 mg/dLVery High Triglyceride: greater than or equal to 5OO mg/dL Cholesterol 175 <200 mg/dL [facility] Comment:Desirable Cholestero l: less than 200 mg/dLBorderline High Cholesterol: 200-239 mg/dLHigh Cholesterol: greater than 239 mg/dL LDL Cholesterol Calculated 88 <100 mg/dL [facility] Comment:Desirable LDL: less than 100 mg/dLNear Optimal/Above Optimal LDL: 110- 129 mg/dLBorderline High LDL: 130-159 mg/dLHigh LDL: 160-189 mg/dLVery High LDL: greater than or equal to 190 mg/dL HDL Cholesterol 69 >40 mg/dL [facility] Comment:Desirable HDL: great er than 40 mg/dL Note: This HDL assay may give artificially low results in patients with liver disease. Blood 12/19/2024 11:0 0 AM EDT 12/19/2024 11:00 AM EDT us Lolis Gastelum MD LAB BLOOD ORDERABLES Final Resul t [facility] [address] [place] [phone] * BI Mammogram Screening Tomosynthesis Bilateral (11/02/2024 9:16 AM EDT) Anatomical Region Laterality Modality Breast Bilateral Mammography 11/02/2024 9:16 AM EDT Narrative 11/07/2024 1:06 PM EDT [address] [place] [address] Mammography Report Signed Patient: Lotus Garza MR#: [id number] 4 : 1955 Acct:[id number] Age/Sex: 68 / F ADM Date: 11/02/24 Loc: .MAMMO Attending Dr: Lolis Gastelum MD Ordering Physician: Lolis Gastelum MD Results: 1Negative Date of Service: 11/02/24 Follow Up: 1 Year From [facility] Mammogram Procedure(s): MM tomosynthesis screening BI Accession Number(s): [id number] cc: Lolis Gastelum MD EXAMINATION: MM SCREENING [...] House DO in OV> 11/07/24 1303 DD/ 5 TD/TT: 11/02/24932 Oil Operator: Procedure Note Donotuseinterpreter, Image - 11/07/2024 [facility] [address] [place] [address] Mammography Report Signed Patient: Lotus GarzaMR#: [id number] 4 : 1955cct:[id number] Age/Sex: 68 / FADM Date: 11/02/24 Loc: LANDRY Attending Dr: Lolis Gastelum MD Ordering Physician: Lolis Gastelum MDResults: 1Negative Date of Service: 11/02/24Follow Up: 1 Year From [facility] Mammogram Procedure(s): MM tomosynthesis screening BI Accession Number(s): [id number] cc: Lolis Gastelum MD EXAMINATION: MM SCREENING [...] 11/07/24 1303 DD/ 0916 TD/TT: 11/02/24 0933 Oil Operator: us Lolis Gastelum MD IMG BI PROCEDURES Final Result * Diabetes Eye Exam (03/31/2022) Eye Exam Normal Normal us [place] [facility] Pcp HEALTH MAINTENANCE Final Result * Colonoscopy [...] 06/25/2025 Patient has chronic kidney disease 06/25/2025 Weekly blood pressure task 06/25/2025 Weekly blood pressure task 06/25/2025 Patient has chronic kidney disease 06/25/2025 Patient has chronic kidney disease 06/25/2025 Insurance [facility] STANDARD [facility] [place] [id number] Care Teams Equipment Tech Relationship Specialty Start Date End Date Lolis Gastelum MD [address] [place] [phone] PCP - General Family Medicine 08/01/18
--- OUTSIDE RECORDS SUMMARY | 2025-07-04 09:48 | XMS_ITS | Encounter Summary ---
Author Organization [employer] Address [address] [place] [address] 7[address] [place] [address] Care Team Providers Care Instructor Dancing Name Role Phone Lolis Gastelum MD Primary Care Provider [phone] Encounter Details Date Type Department Care Team (Late st Contact Info) Description 03/07/2023 Abstract [facility] [address] [place] [address] [phone] Lolis Gastelum MD [address] [place] [address] [phone] Social History Tobacco Use Types Packs/Day Years [...] Description 07/23/2025 3:15 PM EST Office Visit [facility] [address] [place] [address] [phone] Lolis Gastelum MD [address] [place] [address] [phone] documented as of this encounter Procedures Procedure Name Priority Date/Time Associated Diagnosis Comments DIABETES EYE EXAM Routine 03/31/2022 documented in this encounter Results * Hm Diabetes Eye Exam (03/31/2022) Eye Exam Normal Normal [facility] Unassigned Pcp HEALTH MAINTENANCE Final Result documented in this encounter Visit Diagnoses Not on filedocumented in this encounter Additional Health Concerns Assessment Noted Time PHQ-9 Depression Total Score: 0 08/18/19 23 11:05 AM EST documented as of this encounter Care Teams Instructor Dancing Relationship Specialty Start Date End Date Lolis Gastelum MD [address] [place] [address] PCP - General Family Medicine 08/01/18 documented as of this encounter
--- OUTSIDE RECORDS SUMMARY | 2025-07-04 09:49 | XMS_ITS | Encounter Summary ---
Author Organization [employer] Address [address] [place] [address] 7t [place] [address] Care Team Providers Care Top Ironer Name Role Phone Lolis Gastelum MD Primary Care Provider [phone] Reason for Referral * Consultation (Routine) - Authorized Specialty Diagnoses / Procedures Referred By Contac t Referred To Contact Endocrinology Diagnoses Other osteoporosis without current pathological fracture Lolis Gastelum MD [address] [place] [address] Phone: tel: fax: [facility] Referral ID Status Reason Start Date Expiration Date Visits Requested Visits Authorized [id number] Authorized Specialty Services Required 05/09/2025 05/09/2026 1 1 Encounter Details Date Type Department Care Team (Late st Contact Info) Description 05/09/2025 Orders Only [facility] [address] [place], [place] [phone] Lolis Gastelum MD [address] [place], [place] [phone] Other osteoporosis without current pathological fracture (Primary [...] PM EST Office Visit [facility] [address] [place] [phone] Lolis Gastelum MD [address] [place] [address] Scheduled Referrals Name Type Priority Associated Diagnoses [...] documented as of this encounter Care Teams Top Ironer Relationship Specialty Start Date End Date Lolis Gastelum MD [address] [place] [address] PCP - General Family Medicine 08/01/18 documented as of this encounter
--- OUTSIDE RECORDS SUMMARY | 2025-07-04 09:49 | XMS_ITS | Encounter Summary ---
Author Organization [employer] Address [address] [facility] 7t [place] [address] Care Team Providers Care Building Maintenance Repairer Name Role Phone Lolis Gastelum MD Primary Care Provider [phone] Encounter Details Date Type Department Care Team ([facility] st Contact Info) Description 08/18/2022 Abstract [facility] MEDICINE [address] [place], [place] [phone] Lolis Gastelum MD [address] [place], [place] [phone] Social History Tobacco Use Types Packs/Day Years [...] things Not at all 08/18/2022 11:05 AM Veran Stevenson [place] Feeling down, depressed, or hopeless [...] 3:15 PM EST Office Visit [facility] [address] [place], [place] [phone] Lolis Gastelum MD [address] [place] [address] documented as of this encounter Visit Diagnoses Not on filedocumented in this encounter Additional Health Concerns Assessment Noted Time PHQ-9 Depression Total Score: 0 08/18/19 23 11:05 AM EST documented as of this encounter Care Teams Building Maintenance Repairer Relationship Specialty Start Date End Date Lolis Gastelum MD [address] [place] [address] PCP - General Family Medicine 08/01/18 documented as of this encounter
== END 2025-07-04 09:48 | disposition home or self-care (01) ==
LOC: HO.ENCR 09:03
PROVIDERS: PCP Family Medicine; Visit Provider Student in an Organized Health Care Education/Training Program
DX: M81.0 Age-related osteoporosis without current pathological fracture (principal)
CPT/HCPCS: 99204; G2211

== ENCOUNTER → 2025-07-04 09:02 | Outpatient (BNVA) | payer OTHER, SELFPAY | PROVIDERS: PCP Family Medicine; Visit Provider Student in an Organized Health Care Education/Training Program | DX: M81.0 Age-related osteoporosis without current pathological fracture (principal) | CPT/HCPCS: 99202 ==

== ENCOUNTER 2025-07-11 09:46 | Outpatient (AMB) | payer OTHER, SELFPAY ==
--- NOTE | 2025-07-11 09:49 | MHC.OFFVIS ---
Vital Signs 07/11/25 09:52 Height 5 ft 1 in Weight 166 lb BMI 31.4 Intake Visit Reasons: INJ- Right hip, last inj 04/10/25 Intake Note: Lotus is a 69 year old female who presents with complaints of pain along the lateral aspect of her right hip. She describes her pain as achy in nature. She has tried Tylenol and anti-inflammatory medicines which gave her only mild relief. She denies any numbness or tingling in either of her lower extremities. She has had cortisone injections in the past which gave her good relief. Allergies atropine () Allergy (Unknown, Verified 07/11/25 09:53) Hives belladonna alkaloids (From ) Allergy (Unknown, Verified 07/11/25 09:53) INVOLUNTARY SPASMS hyoscyamine () Allergy (Unknown, Verified 07/11/25 09:53) hives phenobarbital (From ) Allergy (Unknown, Verified 07/11/25 09:53) INVOLUNTARY SPASMS scopolamine () Allergy (Unknown, Verified 07/11/25 09:53) hives From Allergy (Unknown, Uncoded 07/11/25 09:53) INVOLUNTARY SPASMS Medication List - Last Reconciled 07/11/25 by Abdirahman Awad MD amitriptyline 25 mg PO BEDTIME atorvastatin 80 mg PO DAILY [id number] tabs PO dulaglutide (Trulicity) mg subcut empagliflozin (Jardiance) 10 mg PO DAILY levothyroxine 100 mcg PO DAILY lisinopril 2.5 mg PO DAILY magnesium oxide 400 mg PO DAILY meclizine 25 mg PO TID PRN metformin ER 1,000 mg PO BID omeprazole 40 mg PO DAILY sertraline 100 mg PO BID sumatriptan succinate 50 mg PO [facility] Medical History Other and unspecified hyperlipidemia Type 2 diabetes mellitus with unspecified complications Surgical History H/O tubal ligation H/O: hysterectomy H/O gastric bypass Family History Father Heart problem History of high blood pressure Mother Heart problem History of high blood pressure Heart block Social History Alcohol intake: never Patient Tobacco Use Status: Never used Tobacco Current occupational status: disabled 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 Physical Exam Vital Signs: BMI result Body Mass Index 31.4 Extrem Other: Right hip examination shows full range of motion when compared to her left hip, mild discomfort with range of motion, tenderness over her bursa, no overlying skin lesions Office Procedures AMB Joint Injection/Aspiration Joint Injection/Aspiration Primary Site: Right Trochanteric Bursa Prep: site was prepped using aseptic technique Injected: 40 mg of, DepoMedrol, with 3 mL of and 1% plain Lidocaine Procedure: The patient tolerated the procedure well Coding 41663 - Large joint Procedure code (CPT) selection complete Assessment & Plan Assessment & Plan (1) Trochanteric bursitis of right hip: Code(s): M70.61 - Trochanteric bursitis, right hip Category: Medical Plan Ms. Garza presents with right hip pain due to greater trochanteric bursitis. The risks and benefits of a right hip greater trochanteric bursa cortisone injection were discussed at length with the patient. The patient wished to proceed. She tolerated the injection well. She will continue with her home stretching program. She will contact me prior to her follow-up appointment in 3 months should any questions or concerns arise. Feel free to call me at any time should questions regarding her orthopedic management arise. I spent 20 minutes in reviewing the patient's records and imaging studies, seeing the patient and documenting in the medical record. Orders: Orders AMB Joint Injection/Aspiration Today M70.61 - Trochanteric bursitis, right hip Coding Level of Care Code Est Pt Level 3 (63991) Add On Problem Visit Only Diagnoses Trochanteric bursitis of right hip M70.61 CPT Codes Coding - 59575 Large joint: 47640 - Large joint ([id number])
[2025-07-11 09:52] VITALS: BMI 31.4
== END 2025-07-11 10:05 | disposition home or self-care (01) ==
LOC: HO.HOS 09:46
PROVIDERS: PCP Family Medicine; Visit Provider Orthopaedic Surgery
DX: M70.61 Trochanteric bursitis, right hip (principal)
CPT/HCPCS: 20610; 99213

== ENCOUNTER → 2025-07-11 09:46 | Outpatient (BNVA) | payer OTHER, SELFPAY | PROVIDERS: PCP Family Medicine; Visit Provider Orthopaedic Surgery | DX: M70.61 Trochanteric bursitis, right hip (principal); M25.551 Pain in right hip | CPT/HCPCS: 20610; 99212; J1010; J2003 ==

== ENCOUNTER → 2025-07-15 09:43 | Outpatient (REF) | payer OTHER, SELFPAY ==
--- NOTE | ~2025-07-15 | NM_ITS ---
EXERCISE MYOCARDIAL PERFUSION STUDY INDICATION: Precordial chest pain to evaluate for myocardial ischemia TECHNIQUE: The patient was brought in for an exercise perfusion study on 07/15/2025. Patient performed exercise as per Eyal protocol and was injected 25 mCi of sestamibi once target heart rate was achieved. Images were obtained using the SPECT gamma camera interlaced with the gating device. Images were obtained in supine position. Resting perfusion study was performed on 07/16/2025. Patient was administered 25 mCi of sestamibi intravenously at rest. Images were then obtained in supine position. Images were processed with the software and compared side to side in short axis, horizontal long axis and vertical long axis views. Images obtained without without CT attenuation. Total DLP 84 mGy-cm. FINDINGS: Raw images were reviewed The stress perfusion study showed nonattenuated images show some thinning of the basal septum of the LV myocardium. Remainder of the LV myocardium is normally perfused. Attenuated corrected images show normal uptake of radiotracer in all segments of the LV myocardium. The gated study shows normal LV systolic function with calculated LVEF of greater than 70%. LV cavity is normal in size. The gated study shows normal systolic wall thickening and contraction of segments. Resting study shows no change in perfusion pattern compared to stress perfusion study. Gating at rest reveals normal systolic wall motion with ejection fraction at 65%. The findings are consistent with normal myocardial perfusion. NM/NM cardiolite stress test IMPRESSION: 1. Myocardial perfusion imaging study shows normal myocardial perfusion. 2. Gated LVEF is 65%. 3. Transient ischemic dilatation not present. EKG revealed negative for ischemia. Electronically signed by: Jeremy Saenz MD 07/17/2025 04:41 PM [facility] [place]
--- NOTE | 2025-07-15 10:01 | CA_ITS ---
Acquisition Time: 2025-07-15 10:05:47 Total Exercise Time: 00:05:45 Test Indications: CHEST PAIN Medications: ATROVASTATIN LISINOPRIL METFORMIN Protocol: LAUREN Max HR: 137 BPM 90% of Pred: 152 BPM Max BP: 138/70 mmHG Max Work Load: 7.0 METS Exercise stress test with exercise 5 mins 45 secs of Lauren Protocol, achieving 90% MPHR, with reports of 3/10 mid chest pressure and mild SOB, with isolated PVCs, with normotensive response to exercise. without any EKG changes meeting criteria for ischemia. In recovery, chest pressure quickly resolved. Nuclear images pending. Test reviewed with Dr. Bullard. Referred By: Brijesh Rod Electronically Signed By: Sekou Gordon
== END ==
LOC: HO.CARD 09:43
PROVIDERS: PCP Family Medicine; Visit Provider Internal Medicine
DX: R00.2 Palpitations (principal); R07.2 Precordial pain
CPT/HCPCS: 78452; 93017; 93246; A9500

== ENCOUNTER → 2025-07-15 10:01 | Outpatient (BNV) | payer OTHER, SELFPAY | PROVIDERS: PCP Family Medicine | DX: I49.3 Ventricular premature depolarization (principal); R07.89 Other chest pain; R06.02 Shortness of breath | CPT/HCPCS: 78452; 93016; 93018 ==